=== PATIENT | male | born 1940 | race Caucasian/White ===

== ENCOUNTER 2017-07-30 09:30 | Outpatient (RCR) | payer MEDICARE, SELFPAY ==
--- NOTE | 2017-07-18 09:37 | PCM.PR.HP ---
History of Present Illness Arrival date:: 07/18/17 Arrival time:: 09:38 Date of Evaluation: 07/18/17 Referring Physician: Dr. Janina Sesay [place], [place] Primary Diagnosis: Pulmonary Fibrosis History of Present Illness: Patient is a 77 year old male who presents to pulmonary rehab today with pulmonary fibrosis. The patient is under the care of Dr. Janina Sesay at the [facility] in [place], [place]. The patient is unable to perform pulmonary function testing due to uncontrollable cough. mMRC Breathless Scale: When is the patient short of breath? Y/N Grade: Description of Breathlessness: 0 I only get breathless with strenuous exercise. 1 I get short of breath when hurrying on level ground or walking up a slight hill. 2 On level ground, I walk slower than people of the same age because of breathless, or have to stop for breath when walking at my own pace. 3 I stop for breath after walking 100 yards or after a few minutes on level ground. 4 I am too breathless to leave the house or I am breathless when dressing. Respiratory Problems: Yes: Chest Pain, Fatigue, Wheezing, Able to Speak in Full Sentences, Hoarseness, Dyspnea with Activity, Cough with Secretions - Secretions Amount/Day:: not always Cough:: Yes A.T.C.: Yes Sleep Disorder Evaluation: EPWORTH SLEEPINESS SCALE 0 = NO chance of dozing 2 = MODERATE chance of dozing 1 = SLIGHT chance of dozing 3 = HIGH chance of dozing : SITUATION: CHANCE OF DOZING: Sitting and Reading Watching TV Sitting inactive in a public place (i.e. 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 Psychiatric History: no pertinent psych hx Surgical History: - - umbilical hernia repair 95, removal of pilonidal cyst, vasectomy. Family History: Unknown: Maternal, Paternal, Heart Disease: Sibling - brothers [place], Stroke: Sibling - 2 brothers had CVA Additional Family History: Sister in [place] had fibromyalgia. - Social History Marital Status: Assistive Devices:: none Fall history:: none Interest/Hobbies:: golfing in the past. Now sun sensitive can't golf. Transportation Needs:: own Employment:: Retired Smoking Status: Never smoker - Living Arrangement Patient lives with other person(s) in the home:: AROUND THE CLOCK - Current/ Previous Services [facility] Home Health:: No Other Home Health:: No [facility] Cardiac Rehab:: No Life (Palliative) Care Services:: No Tobacco Use & Smoking Cessation:: No Pulmonary Rehab:: No Social History - Smoking History Smoking Status: Never smoker Hx Tobacco Use: No Hx Smoking Exposure: No - Alcohol Use Alcohol Usage: Yes - past history, no alcohol since 2010. - Substance Abuse Hx Substance Use: No - Occupation Occupation (List type of work in comments):: Retired - Hobbies, Recreation, Social Activities Hobbies: Other - used to enjoy golfing, but unable due to sun sensitivity. Recreational Activities: I am able to engage in most, but not all activities Medications & Vaccination Info Home Medications: Ambulatory Orders Fish Oil/Dha/Epa [Fish Oil 1,200 mg Fish Oil] 1,200 mg PO BID 08/27/13 Zinc 50 mg PO DAILY 08/27/13 Ascorbic Acid [Vitamin C] 1,000 mg PO 07/18/17 B12/Levomefolate Calcium/B-6 [Foltx Tablet] 1 each PO 07/18/17 Famotidine [Pepcid] 20 mg PO 07/18/17 Lactobacillus Combination No.8 [Adult Probiotic] 1 each PO 07/18/17 Oxygen, Home [Home Oxygen] 2 lpm NASAL PRN 07/18/17 Do you use a peak flow meter at home?: No Do you use a spacer device with your inhalers?: No Number of hospital visits in the last year?: 0 Number of emergency room visits in the last year?: 0 Do you see your physician on a regular schedule?: Yes How often?: 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, PCP PRN, Board Layer 3 mo Has adequate access & meets healthcare needs?: Yes - Drug Regimen Review Indication of potential clinical significant med issues (drug reactions, ineffective therapy, side effects, interactions, duplicate therapy, omissions, dose errors, or non-compliance)?: No problems found during review Was a physician or the physican designee contacted within one calendar day to resolve clinically significant medication issues, including reconcilitation?: No Review of Systems Constitutional: Denies: Chills, Fever, Weight Change HEENT: Reports: Hard of Hearing, Nasal Congestion, Post Nasal Drip, Sinus Drainage. Denies: Head Aches, Sinus Congestion Cardiovascular: Denies: Chest Pain, Palpitations Respiratory: Reports: Pleuritic Pain, Shortness of Breath, Shortness of breath upon exertion. Denies: Cough, Shortness of breath at rest, Sputum production Musculoskeletal: Denies: Joint Pain, Joint Tenderness Skin: Reports: Rash. Denies: Wounds Neurological: Reports: Blurred vision, Double vision. Denies: Focal weakness, Numbness, Tingling Psychiatric: Denies: Anxiety, Depression, Homicidal Ideations, Suicidal Ideations Advanced Directives - Advanced Directives Power of Nurse Aide: Yes Living Will: Yes Advance Directives Information Provided: No Advance Directives on File: No - Patient encourage to provide copies to HIM for scan DNR Order?:: No Coping/Social Support/Other - Abuse and Neglect Do you feel safe in your surroundings?:: YES Are there sign/symptoms of abuse?: No Has anyone physically or mentally abused you?: No Has anyone threatened to harm you in any way?: No Been asked to sign a document that you don't understand?: No - Exacerbation History Recent exposure to illness?: No Known carrier?: No Antibiotic Taken:: No - Nutrition Risk Factor Are you on a special diet?: No Diff. chewing/swallowing:: No Have you had a change in your weight?: No Physical Exam - Vital Signs Temperature: 98.6 F Pulse Rate: 72 Respiratory Rate: 16 Pulse Ox at rest: 98 - at rest Blood Pressure: 128/68 Nailbeds:: cyonotic after walking Height: 5 ft 10 in Weight:: 90.718 kg Weight Source: Estimated by Patient Body Mass Index (BMI): 28.7 - Physical Exam General: Alert, Oriented x3, Cooperative Neck: Supple, No JVD, Negative Carotid Bruits, Negative Hepatojugular Reflux Lungs: Clear to auscultation, Normal air movement Cardiovascular: Regular rate, Regular Rhythm, No murmurs Extremities: No edema, Capillary Refill Less than 3 Seconds, Clubbing, Cyanosis, Peripheral Pulses Normal Musculoskeletal: No Tenderness to Palpation of Joints or Extremities Psych/Mental Status: Normal Affect, Appropriate - Pain Is Patient Pain Free?: Yes Pain Location: none Pain Level: 0/10 - Hearing/Speech/Vision/Spiritual Cultural/Gnosticism Needs that may affect Treatment Plan: No Do you have any Spiritual/Emotional needs of which our Central Office Operator Ministry could be of assistance?: No Central Office Operator to contact Place of Methodist?: No Primary Language: Russian Preferred Language: Russian Right Hearing Abillity: Hard of Hearing Visual Difficulty: Near Sighted, Far Sighted - wears corrective eye lenses - Motivation to Participate On a scale of 1 to 10, how prepared are you to commit to attending pulmonary rehabilitation?: 10 What do you see as barriers to successfully being able to complete the program?: just the breathing problem What do you see as the benefits of succesfully completing the program? In other words, what do you hope to get out of participating in the program?: improved quality of life Are there issues you are dealing with that will interfere with completing the program?: none Do you have a spouse or signficant other, family or friends who will help support you to complete the program?: yes Diagnostic Data Review - Diagnostic and Imaging Results CT Scan of Chest: see EMR - Cardiovascular Studies Heart Catherization: see EMR Cardiac Stress Test: See EMR Functioning ADL/IADL - Functional Capacity ADL/IADL GROOMING: Current ability to tend safely to personal hygiene needs (i.e., washing face/hands, hair care, shaving or make up, teeth or denture care, fingernail care).: Able to groom self unaided, w/ or w/o the use of assistive devices. Current ABILITY TO DRESS UPPER BODY safely (with or w/out dressing aids) including undergarments, pullovers, front-opening shirts & blouses, managing zippers, buttons, & snaps:: Gets clothes out, puts on, and removes from upper body w/o assist. Current ABILITY TO DRESS LOWER BODY safely (with or w/out dressing aids) including undergarments, slacks, socks or nylons, shoes:: Able to obtain, put on, & remove clothing and shoes w/out assistance. Bathing: Current ability to wash entire body safely. EXCLUDES grooming (washing face, washing hands and shampooing hair): Bathes self in shower/tub independently, incl getting in & out TOILET TRANSFERRING: Current ability to get to & from the toilet/BSC safely and transfer on & off toilet/commode.: Gets to & from toilet, transfers independently w/ or w/o a device. TOILETING HYGIENE: Current ability to maintain perineal hygiene safely, adjust clothes and/or incontinence pads before & after using toilet, commode, bedpan, urinal. If managing ostomy, includes cleaning: Manages toileting hygiene & clothing management w/out assist TRANSFERRING: Current ability to move safely from bed to chair, or ability to turn and position self in bed if patient is bedfast.: Able to independently transfer. AMBULATION/LOCOMOTION: Current ability to walk safely, once in a standing position, or use wheelchair, once in a seated position, on a variety of surfaces.: Able to IND walk on even/uneven surface&use stairs with or w/o railing FEEDING or EATING: Current ability to feed self meals and snacks safely. NOTE: This refers only to the process of eating, chewing and swallowing, not preparing the food to be eaten.: Able to independently fee ABILITY TO PLAN AND PREPARE MEALS: (e.g., cereal, sandwich) or reheat delivered meals safely.: IND prepare light meals/reheat delvrd meals/Or can but hasn't done so. ABILITY TO USE TELEPHONE: Current ability to answer the phone safely, including dialing numbers, and effectively using the telephone to communicate.: Able to dial numbers and answer calls appropriately and as desired. - Pt Functioning Prior to Problem Self-Care (e.g.,grooming, dressing, & bathing): INDEPENDENT Ambulation: INDEPENDENT Transfer: INDEPENDENT Household tasks (e.g., light meal prep, laundry, shopping): INDEPENDENT
--- NOTE | 2017-07-18 09:48 | PR.HP_ITS ---
History of Present Illness Arrival date:: 07/18/17 Arrival time:: 09:38 Date of Evaluation: 07/18/17 Referring Physician: Dr. Janina Sesay [place], [place] Primary Diagnosis: Pulmonary Fibrosis History of Present Illness: Patient is a 77 year old male who presents to pulmonary rehab today with pulmonary fibrosis. The patient is under the care of Dr. Janina Sesay at the [facility] in [place], [place]. The patient is unable to perform pulmonary function testing due to uncontrollable cough. mMRC Breathless Scale: When is the patient short of breath? Y/N Grade: Description of Breathlessness: 0 I only get breathless with strenuous exercise. 1 I get short of breath when hurrying on level ground or walking up a slight hill. 2 On level ground, I walk slower than people of the same age because of breathless, or have to stop for breath when walking at my own pace. 3 I stop for breath after walking 100 yards or after a few minutes on level ground. 4 I am too breathless to leave the house or I am breathless when dressing. Respiratory Problems: Yes: Chest Pain, Fatigue, Wheezing, Able to Speak in Full Sentences, Hoarseness, Dyspnea with Activity, Cough with Secretions - Secretions Amount/Day:: not always Cough:: Yes A.T.C.: Yes Sleep Disorder Evaluation: EPWORTH SLEEPINESS SCALE 0 = NO chance of dozing 2 = MODERATE chance of dozing 1 = SLIGHT chance of dozing 3 = HIGH chance of dozing : SITUATION: CHANCE OF DOZING: Sitting and Reading Watching TV Sitting inactive in a public place (i.e. 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 Psychiatric History: no pertinent psych hx Surgical History: - - umbilical hernia repair 95, removal of pilonidal cyst, vasectomy. Family History: Unknown: Maternal, Paternal, Heart Disease: Sibling - brothers [place], Stroke: Sibling - 2 brothers had CVA Additional Family History: Sister in [place] had fibromyalgia. - Social History Marital Status: Assistive Devices:: none Fall history:: none Interest/Hobbies:: golfing in the past. Now sun sensitive can't golf. Transportation Needs:: own Employment:: Retired Smoking Status: Never smoker - Living Arrangement Patient lives with other person(s) in the home:: AROUND THE CLOCK - Current/ Previous Services [facility] Home Health:: No Other Home Health:: No [facility] Cardiac Rehab:: No Life (Palliative) Care Services:: No Tobacco Use & Smoking Cessation:: No Pulmonary Rehab:: No Social History - Smoking History Smoking Status: Never smoker Hx Tobacco Use: No Hx Smoking Exposure: No - Alcohol Use Alcohol Usage: Yes - past history, no alcohol since 2010. - Substance Abuse Hx Substance Use: No - Occupation Occupation (List type of work in comments):: Retired - Hobbies, Recreation, Social Activities Hobbies: Other - used to enjoy golfing, but unable due to sun sensitivity. Recreational Activities: I am able to engage in most, but not all activities Medications & Vaccination Info Home Medications: Ambulatory Orders Fish Oil/Dha/Epa [Fish Oil 1,200 mg Fish Oil] 1,200 mg PO BID 08/27/13 Zinc 50 mg PO DAILY 08/27/13 Ascorbic Acid [Vitamin C] 1,000 mg PO 07/18/17 B12/Levomefolate Calcium/B-6 [Foltx Tablet] 1 each PO 07/18/17 Famotidine [Pepcid] 20 mg PO 07/18/17 Lactobacillus Combination No.8 [Adult Probiotic] 1 each PO 07/18/17 Oxygen, Home [Home Oxygen] 2 lpm NASAL PRN 07/18/17 Do you use a peak flow meter at home?: No Do you use a spacer device with your inhalers?: No Number of hospital visits in the last year?: 0 Number of emergency room visits in the last year?: 0 Do you see your physician on a regular schedule?: Yes How often?: 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 3 mo, PCP PRN, Mutual Funds Agent 3 mo Has adequate access & meets healthcare needs?: Yes - Drug Regimen Review Indication of potential clinical significant med issues (drug reactions, ineffective therapy, side effects, interactions, duplicate therapy, omissions, dose errors, or non-compliance)?: No problems found during review Was a physician or the physican designee contacted within one calendar day to resolve clinically significant medication issues, including reconcilitation?: No Review of Systems Constitutional: Denies: Chills, Fever, Weight Change HEENT: Reports: Hard of Hearing, Nasal Congestion, Post Nasal Drip, Sinus Drainage. Denies: Head Aches, Sinus Congestion Cardiovascular: Denies: Chest Pain, Palpitations Respiratory: Reports: Pleuritic Pain, Shortness of Breath, Shortness of breath upon exertion. Denies: Cough, Shortness of breath at rest, Sputum production Musculoskeletal: Denies: Joint Pain, Joint Tenderness Skin: Reports: Rash. Denies: Wounds Neurological: Reports: Blurred vision, Double vision. Denies: Focal weakness, Numbness, Tingling Psychiatric: Denies: Anxiety, Depression, Homicidal Ideations, Suicidal Ideations Advanced Directives - Advanced Directives Power of Tree Care Foreman: Yes Living Will: Yes Advance Directives Information Provided: No Advance Directives on File: No - Patient encourage to provide copies to HIM for scan DNR Order?:: No Coping/Social Support/Other - Abuse and Neglect Do you feel safe in your surroundings?:: YES Are there sign/symptoms of abuse?: No Has anyone physically or mentally abused you?: No Has anyone threatened to harm you in any way?: No Been asked to sign a document that you don't understand?: No - Exacerbation History Recent exposure to illness?: No Known carrier?: No Antibiotic Taken:: No - Nutrition Risk Factor Are you on a special diet?: No Diff. chewing/swallowing:: No Have you had a change in your weight?: No Physical Exam - Vital Signs Temperature: 98.6 F Pulse Rate: 72 Respiratory Rate: 16 Pulse Ox at rest: 98 - at rest Blood Pressure: 128/68 Nailbeds:: cyonotic after walking Height: 5 ft 10 in Weight:: 90.718 kg Weight Source: Estimated by Patient Body Mass Index (BMI): 28.7 - Physical Exam General: Alert, Oriented x3, Cooperative Neck: Supple, No JVD, Negative Carotid Bruits, Negative Hepatojugular Reflux Lungs: Clear to auscultation, Normal air movement Cardiovascular: Regular rate, Regular Rhythm, No murmurs Extremities: No edema, Capillary Refill Less than 3 Seconds, Clubbing, Cyanosis , Peripheral Pulses Normal Musculoskeletal: No Tenderness to Palpation of Joints or Extremities Psych/Mental Status: Normal Affect, Appropriate - Pain Is Patient Pain Free?: Yes Pain Location: none Pain Level: 0/10 - Hearing/Speech/Vision/Spiritual Cultural/Sikhism Needs that may affect Treatment Plan: No Do you have any Spiritual/Emotional needs of which our Automotive Accessory Installer Ministry could be of assistance?: No Automotive Accessory Installer to contact Place of Restorationist?: No Primary Language: Serbian Preferred Language: Serbian Right Hearing Abillity: Hard of Hearing Visual Difficulty: Near Sighted, Far Sighted - wears corrective eye lenses - Motivation to Participate On a scale of 1 to 10, how prepared are you to commit to attending pulmonary rehabilitation?: 10 What do you see as barriers to successfully being able to complete the program? : just the breathing problem What do you see as the benefits of succesfully completing the program? In other words, what do you hope to get out of participating in the program?: improved quality of life Are there issues you are dealing with that will interfere with completing the program?: none Do you have a spouse or signficant other, family or friends who will help support you to complete the program?: yes Diagnostic Data Review - Diagnostic and Imaging Results CT Scan of Chest: see EMR - Cardiovascular Studies Heart Catherization: see EMR Cardiac Stress Test: See EMR Functioning ADL/IADL - Functional Capacity ADL/IADL GROOMING: Current ability to tend safely to personal hygiene needs (i.e., washing face/hands, hair care, shaving or make up, teeth or denture care, fingernail care).: Able to groom self unaided, w/ or w/o the use of assistive devices. Current ABILITY TO DRESS UPPER BODY safely (with or w/out dressing aids) including undergarments, pullovers, front-opening shirts & blouses, managing zippers, buttons, & snaps:: Gets clothes out, puts on, and removes from upper body w/o assist. Current ABILITY TO DRESS LOWER BODY safely (with or w/out dressing aids) including undergarments, slacks, socks or nylons, shoes:: Able to obtain, put on , & remove clothing and shoes w/out assistance. Bathing: Current ability to wash entire body safely. EXCLUDES grooming (washing face, washing hands and shampooing hair): Bathes self in shower/tub independently, incl getting in & out TOILET TRANSFERRING: Current ability to get to & from the toilet/BSC safely and transfer on & off toilet/commode.: Gets to & from toilet, transfers independently w/ or w/o a device. TOILETING HYGIENE: Current ability to maintain perineal hygiene safely, adjust clothes and/or incontinence pads before & after using toilet, commode, bedpan, urinal. If managing ostomy, includes cleaning: Manages toileting hygiene & clothing management w/out assist TRANSFERRING: Current ability to move safely from bed to chair, or ability to turn and position self in bed if patient is bedfast.: Able to independently transfer. AMBULATION/LOCOMOTION: Current ability to walk safely, once in a standing position, or use wheelchair, once in a seated position, on a variety of surfaces.: Able to IND walk on even/uneven surface&use stairs with or w/o railing FEEDING or EATING: Current ability to feed self meals and snacks safely. NOTE: This refers only to the process of eating, chewing and swallowing, not preparing the food to be eaten.: Able to independently fee ABILITY TO PLAN AND PREPARE MEALS: (e.g., cereal, sandwich) or reheat delivered meals safely.: IND prepare light meals/reheat delvrd meals/Or can but hasn't done so. ABILITY TO USE TELEPHONE: Current ability to answer the phone safely, including dialing numbers, and effectively using the telephone to communicate.: Able to dial numbers and answer calls appropriately and as desired. - Pt Functioning Prior to Problem Self-Care (e.g.,grooming, dressing, & bathing): INDEPENDENT Ambulation: INDEPENDENT Transfer: INDEPENDENT Household tasks (e.g., light meal prep, laundry, shopping): INDEPENDENT
--- NOTE | 2017-07-18 09:54 | PR.ITP_ITS ---
General Information - General Information Admitting Diagnosis: Pulmonary Fibrosis M35.8 - Education/Goals Barriers to Learning: Hearing Impairment, Vision Impairment Individual Counseling: Initial Assessment: Dyspnea control techniques at rest, activity, and ADLs, O2, Rx, system, safety, Panic & depression management Patient Goals: Breathe better: Initial Assessment, Increase endurance/stamina: Initial Assessment Exercise - Initial Assessment - Visit Date of Eval: 07/18/17 - Problem/Goals Problems: Deconditioning, No regular exercise, Knowledge deficit exercise guidelines, Knowledge deficit exercise safety - Exercise Prescription Mode:: Treadmill, Airdyne, NuStep, Arm Ergometer Frequency (x/week): 3 Duration:: 30 MET LEVEL:: 2 HR (bpm):: 108 - 100-108 THRR Exercise Progression: per protocol as tolerated. - Plan Plan and Plan to Review:: Benefits of exercise, Core components of exercise, How to measure dyspnea level, How to monitor dyspnea level, Exercise intensity, Exercise safety guideline, Home exercise guidelines, Sage: 3-4/11-13 Disease Management - Initial - Problems/Goals-Hypoxemia Hypoxemia Problems:: Hypoxemia Hypoxemia Goals:: Using O2 as Rx's safely - Problems/Goals-Bronchial Hygiene Bronchial Hygiene Problems:: Respiratory infection Prevention/Management Bronchial Hygiene Goals:: Pt describes signs and symptoms of infection. - Initial Assessment Medications: No MDI, No DPI, No NEB, No Spacer Patient Reports:: Non-productive cough - Plans Hypoxemia Plan:: Monitor SpO2 rest & with exercise, Train appropriate O2 use at rest, Train appropriate O2 use with exercise, Train O2 safety & systems Reviewed prescribed medications:: Purpose, Schedule, Side effects, Importance of compliance Bronchial Hygiene Plan: Controlled cough, Vibratory PEP device, Hydration, Hand hygiene, Signs/symptoms to report:, Influenza/Pneumovax vaccines Psychosocial - Initial Assess - Problems/Goals Problems: Impaired Q.O.L. Psychosocial Goals: Improved Q.O.L. - Psychosocial Test Depression:: Impaired QOL Referred to MD for counseling:: No - Plan Reviewed screening results: No Instructions given regarding:: Benefits of exercise, Relaxation techniques, Training in coping strategies Tobacco - Initial Assessment - Program Goals Tobacco Program Goals: Complete smoking cessation. Attend education classes. Improve Knowledge Test score - Stage of Change Stages of Change:: Action - Learning Barriers Learning Barriers: Hearing, Vision - Tobacco Use Do you use smokeless tobacco?: No - Intervention Smoking Cessation Referral:: No Individual Education/Counseling:: No Education Schedule Given:: Yes - Education Gave Education Materials For:: Pulmonary Disease, Risk Factors, Breathing Techniques, Medical Compliance, Pulmonary A&P, Exacerbation Signs & Symptoms, Stress & Relaxation Nutrition/Wt Mgmt - Initial - Problems/Goals Problems: Overweight Goals: Wt Loss 1-2 lbs per week - Weight Management Knowledge Deficit Management of:: Overweight, Lack of vitamin D/Ca++ supplement Admit Height:: 5 ft 10 in Admit Weight:: 90.718 kg Admit BMI:: 28.7 - Diabetes Diabetes:: No Insulin: No Do you monitor your blood sugar at home?: No - Intervention Referral to dietitian:: No Referral to Diabetic Clinic:: No Will attend diet classes:: Yes - Plan Nutrition Plan: Yes Nutrition education class:, Yes Medication education class [ Prednisone]:, Yes Weight control education class: Patient Health Questionnaire Initial Assessment 1. Little interest or pleasure in doing things: Not at all 2. Feeling down, depressed, or hopeless: Several days 3. Trouble falling or staying asleep, or sleeping too much: Nearly every day 4. Feeling tired or having little energy: Several days 5. Poor appetite or overeating: Not at all 6. Feeling bad about yourself -- or that you are a failure or have let yourself or your family down: Not at all 7. Trouble concentrating on things, such as reading the newspaper or watching television: Not at all 8. Moving or speaking so slowly that other people could have noticed. Or the opposite - being so fidgety or restless that you have been moving around a lot more than usual: Not at all 9. Thoughts that you would be better off , or of hurting yourself in some way: Not at all How difficult have these problems made it for you to do your work, take care of things at home, or get along with other people?: Somewhat difficult Total Score: 5 COPD Knowledge Test Initial COPD is a lung disease that:: Makes it hard to breathe & gets worse over time In the [place] the term COPD describes 2 main lung conditions:: Cystic fibrosis & chronic bronchitis The most common lung irritant that causes COPD is:: Cigarette smoke Common signs and symptoms of COPD include:: An ongoing cough/cough that produces a large amount of mucus, & SOB If you have COPD, what steps can you take?: All of the above Swelling of the ankles is common in COPD:: False Fatigue [tiredness] is common in COPD:: True Wheezing is common in COPD:: True Crushing chest pain is common in COPD:: False Rapid weight loss is common in COPD:: True Breathlessness is a normal response to exercise: True Exercise should be avoided if it makes you short of breath: False All bronchodilators act within 10 minutes: False A spacer device increases the medication to the lungs: False Annual flu vaccine is recommended for pts w/lung disease: True COPD Knowledge Test Total Score:: 12 COPD Assessment Test [CAT] - Questions Never cough = 0, Cough all the time = 5: 4 No phlegm = 0, Chest full of phlegm = 5: 4 No chest tightness = 0, Chest very tight = 5: 2 No breathless w/exertion = 0, Very breathless w/exertion = 5: 5 No limitations w/activity = 0, Very limited w/activity = 5: 3 Confident leaving home = 0, Not at all confident = 5: 5 Sleep soundly = 0, Don't sleep soundly = 5: 5 Lots of energy = 0, No energy at all = 5: 3 Total CAT score:: 31 Self-Efficacy Initial Assessment We would like to know how confident you are in doing certain activities. Please select your confidence level for:: Select your confidence level for the following using the scale 1-10 where 1 is not at all confident and 10 is totally confident. Your score is the average of all 6 responses. Fatigue: How confident are you that you can keep the fatigue caused by your disease from interfering with the things you want to do? Select Number: 6 Physical Discomfort or Pain: How confident are you that you can keep the physical discomfort or pain of your disease from interfering with the things you want to do? Select Number: 5 Emotional Distress: How confident are you that you can keep the emotional distress caused by your disease from interfering with the things you want to do? Select Number: 8 Other Symptoms or Health Problems: How confident are you that you can keep other symptoms or health problems from interfering with the things you want to do? Select Number: 8 Different Tasks and Activities: How confident are you that you can do the different tasks and activities needed to manage your health condition so as to reduce your need to see a doctor? Select Number: 5 Medication: How confident are you that you can do things other than just taking medication to reduce how much your illness affects your everyday life? Select Number: 8 Total Score:: 6 Nutrition Survey - Nutrition Survey Instructions Scoring Instructions: Scoring is as follows: Yes = 1 points. No = 0 point. Patient score that is >/=12 is considered to be at potential nutritional risk and could benefit from a referral to a registered dietitian. - Nutrition Survey Initial Have you lost >10 lbs over the past 2 months without trying?: No Are you following a special diet at home for diabetes, low fat, or low salt?: No Are you interested in meeting with a dietitian for help understanding your diet? : No Do you eat less than 3 meals a day?: No Do you eat fatty meats (wray, sausage, ribs, etc), fried foods, desserts, large amounts of salad dressings, margarine, butter, or cheese most days?: No Do you have food allergies? [Enter types in comment field]: No Do you eat in restaurants more than 3 times a week?: Yes Do you season food with salt, seasoning salt, or garlic salt?: No Do you used canned, boxed, frozen meals, or soups, seasoning packets?: Yes Total Score:: 2
[2017-07-18 10:18] VITALS: BP 128/68; PULSE 72; RESP 16; TEMP 37; O2SAT 98; BMI 28.7
[2017-07-18 11:16] VITALS: BMI 28.7
--- NOTE | 2017-07-18 11:19 | PCM.PR.DAT ---
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 Effective Feb 28, 2013 our hours will be changing to 8:00 to 4:30 on Friday, Friday and Friday. First Date of the Month: 07/21/17 Last Date of the Month: 07/30/17
== END 2017-07-30 23:59 ==
LOC: PR 09:30
PROVIDERS: Family Provider Family Medicine; PCP Family Medicine
DX: M35.8 Other specified systemic involvement of connective tissue (principal)
CPT/HCPCS: 97150; G0239

== ENCOUNTER → 2017-08-11 10:34 | Outpatient (CLI) | payer MEDICARE, SELFPAY ==
[2017-08-11 11:01] LABS: Absolute Lymphocyte Count 1.97 X10^3/ul (0.83-4.51); Absolute Neutrophil Count 3.6 X10^3/uL (2.0-7.7); Basophil# 0.01 X10^3/uL; Basophil% 0.2 % (0-1); Eosinophil# 0.34 X10^3/uL; Eosinophils% 5.1 % (0-5); Hematocrit 42.5 % (40-54); Hemoglobin 14.4 g/dl (13.0-16.5); Lymphocyte # 1.97 X10^3/ul (4.0); Lymphocyte % 29.6 % (19-41); Mean Corp Hgb Conc 33.9 g/gl (32-36); Mean Corpuscular Hgb 33.7 pg (27.0-32.0); Mean Corpuscular Volume 99.5 fL (80-94); Monocyte# 0.69 X10^3/uL; Monocyte% 10.4 % (0-10); Neutrophil # 3.64 X10^3/uL (2.7-7.7); Neutrophil % 54.5 % (47-70); Platelet Count 162 K/mm3 (150-450); RBC Distribution Width CV 13.4 % (11.6-14.6); RBC Distribution Width SD 48.6 fl (35.1-43.9); Red Blood Count 4.27 M/mm3 (4.6-6.2); White Blood Count 6.7 K/mm3 (4.4-11.0)
[2017-08-11 11:03] LABS: POSITIVE COUNT NO; POSITIVE DIFFERENTIAL NO; POSITIVE MORPHOLOGY NO
[2017-08-11 11:36] LABS: ALB/GLOB Ratio 0.9 RATIO (0.9-2.4); AST(SGOT) 31 U/L (15-37); Alanine Aminotransfer ALT/SGPT 32 U/L (16-61); Albumin, Serum 3.8 g/dL (3.2-5.0); Alkaline Phosphatase 64 U/L (45-117); Anion Gap 6 (5-15); BUN 12 mg/dL (7-18); BUN/Creat Ratio 9.2 RATIO (10-20); CPK Total, Creatine Kinase 121 U/L (39-308); Calcium,Total 8.9 mg/dL (8.5-10.1); Chloride 98 mmol/L (98-107); Creatinine, Serum 1.31 mg/dL (0.70-1.30); EST Glomerular Filtration Rate 56 mL/min (>60); Est Glom Filt Rate - Afr Amer 68 mL/min (>60); Globulin 4.2 g/dL (2.2-4.2); Glucose 94 mg/dL (74-106); Potassium 3.7 mmol/L (3.5-5.1); Sodium Level 133 mmol/L (136-145)
[2017-08-13 07:24] LABS: Aldolase 4.2 U/L (3.3-10.3)
== END ==
PROVIDERS: Family Provider Family Medicine; PCP Family Medicine; Visit Provider Internal Medicine Rheumatology
DX: M06.4 Inflammatory polyarthropathy (principal); M33.90 Dermatopolymyositis, unspecified, organ involvement unspecified; K21.0 Gastro-esophageal reflux disease with esophagitis; K76.0 Fatty (change of) liver, not elsewhere classified; M51.87 Other intervertebral disc disorders, lumbosacral region; N40.0 Benign prostatic hyperplasia without lower urinary tract symptoms; M35.8 Other specified systemic involvement of connective tissue
CPT/HCPCS: 36415; 80053; 82085; 82550; 85025; 97150; G0239

== ENCOUNTER 2017-08-27 09:30 | Outpatient (RCR) | payer MEDICARE, SELFPAY ==
[2017-07-18 10:18] VITALS: BP 128/68
[2017-07-18 11:16] VITALS: BMI 28.7
[2017-07-31 01:13] VITALS: PULSE 72; RESP 16; TEMP 37; O2SAT 98
--- NOTE | 2017-08-25 13:30 | PR.DATECOV_ITS ---
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 Effective Feb 28, 2013 our hours will be changing to 8:00 to 4:30 on Friday, Friday and Friday. First Date of the Month: 08/28/17 Last Date of the Month: 09/26/17
--- NOTE | 2017-08-25 13:30 | PCM.PR.TP ---
Exercise - 30-Day Assessment - Exercise Prescription Mode:: Treadmill, Airdyne, NuStep, Arm Ergometer Frequency (x/week): 3 Duration:: 30 Aerobic Exercise [30-60 min 3-7x/week]:: Progressing Target heart rate: 120 - THRR 107-114 Sage.5 MET Level:: 3 - 3.5 currently - Home Exercise Home Exercise:: No Disease Management - 30-Day - Hypoxemia Reassessment: Demonstrates knowledge of O2 Rx at rest, Demonstrates knowledge of O2 Rx with exercise, Using O2 as prescribed, Uses port O2 as prescribed - Medications Medication list reviewed:: Yes Taking medications 100% of the time:: Met - very very well versed in use of his medications. Medication reassessment: Yes Pt demonstrates correct technique timing for MDI, Yes Pt demonstrates correct technique timing for DPI, Yes Pt demonstrates correct technique timing for NEB, Yes Pt demonstrates correct technique timing for spacer Psychosocial - 30-Day - Assessment Reassessment: Practicing interventions Tobacco - 30-Day Assessment - Program Goals Tobacco Program Goals: Complete smoking cessation. Attend education classes. Improve Knowledge Test score - Stage of Change Stages of Change:: Action - Learning Barriers Learning Barriers: Participates in education - Family Support Do you have family support?: Yes - Tobacco Use Tobacco Use: Non-smoker Do you use smokeless tobacco?: No - Intervention Smoking Cessation Referral:: No Individual Education/Counseling:: No Education Schedule Given:: Yes - Education Gave Education Materials For:: Pulmonary Disease, Risk Factors, Breathing Techniques, Medical Compliance, Pulmonary A&P, Exacerbation Signs & Symptoms, Stress & Relaxation Nutrition/Wt Mgmt - 30-Day - Weight Management Weight Assessment:: Wt loss 1-2 lbs per week Weight:: 89.358 kg Weight Goals Progress:: Progressing Patient Health Questionnaire 30-Day Re-eval Assessment 1. Little interest or pleasure in doing things: Not at all 2. Feeling down, depressed, or hopeless: Not at all 3. Trouble falling or staying asleep, or sleeping too much: More than half the days 4. Feeling tired or having little energy: Several days 5. Poor appetite or overeating: Not at all 6. Feeling bad about yourself -- or that you are a failure or have let yourself or your family down: Not at all 7. Trouble concentrating on things, such as reading the newspaper or watching television: Not at all 8. Moving or speaking so slowly that other people could have noticed. Or the opposite - being so fidgety or restless that you have been moving around a lot more than usual: Not at all How difficult have these problems made it for you to do your work, take care of things at home, or get along with other people?: Not difficult at all Total Score: 3 COPD Assessment Test [CAT] - Questions Never cough = 0, Cough all the time = 5: 3 No phlegm = 0, Chest full of phlegm = 5: 3 No chest tightness = 0, Chest very tight = 5: 1 No breathless w/exertion = 0, Very breathless w/exertion = 5: 4 No limitations w/activity = 0, Very limited w/activity = 5: 2 Confident leaving home = 0, Not at all confident = 5: 4 Sleep soundly = 0, Don't sleep soundly = 5: 4 Lots of energy = 0, No energy at all = 5: 3 Total CAT score:: 24 Self-Efficacy 30-Day Re-eval Assessment We would like to know how confident you are in doing certain activities. Please select your confidence level for:: Select your confidence level for the following using the scale 1-10 where 1 is not at all confident and 10 is totally confident. Your score is the average of all 6 responses. Fatigue: How confident are you that you can keep the fatigue caused by your disease from interfering with the things you want to do? Select Number: 7 Physical Discomfort or Pain: How confident are you that you can keep the physical discomfort or pain of your disease from interfering with the things you want to do? Select Number: 6 Emotional Distress: How confident are you that you can keep the emotional distress caused by your disease from interfering with the things you want to do? Select Number: 8 Other Symptoms or Health Problems: How confident are you that you can keep other symptoms or health problems from interfering with the things you want to do? Select Number: 8 Different Tasks and Activities: How confident are you that you can do the different tasks and activities needed to manage your health condition so as to reduce your need to see a doctor? Select Number: 6 Medication: How confident are you that you can do things other than just taking medication to reduce how much your illness affects your everyday life? Select Number: 9 Total Score:: 7
== END 2017-08-27 23:59 ==
LOC: PR 09:30
PROVIDERS: Family Provider Family Medicine; PCP Family Medicine
DX: M35.8 Other specified systemic involvement of connective tissue (principal)
CPT/HCPCS: 97150; G0239

== ENCOUNTER 2017-09-26 09:30 | Outpatient (RCR) | payer MEDICARE, SELFPAY ==
[2017-08-28 00:55] VITALS: BP 128/68; PULSE 72; RESP 16; TEMP 37; O2SAT 98; BMI 28.7
--- NOTE | 2017-09-22 14:13 | PCM.PR.DAT ---
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 Effective Feb 28, 2013 our hours will be changing to 8:00 to 4:30 on Friday, Friday and Friday. First Date of the Month: 09/28/17 Last Date of the Month: 10/27/17
--- NOTE | 2017-09-22 14:15 | PCM.PR.TP ---
Exercise - 90-Day Assessment - Exercise Prescription Mode:: Treadmill, Rower, Airdyne, NuStep, Arm Ergometer Frequency (x/week): 3 Duration:: 30 Aerobic Exercise [30-60 min 3-7x/week]:: Progressing Target heart rate: 121 - 114-121 w/max HR 117 Sage MET Level:: 4 - Home Exercise Home Exercise?: No Disease Management - 90-Day - Hypoxemia Reassessment: Demonstrates knowledge of O2 Rx with exercise - Medications Medication list reviewed:: Yes Taking medications 100% of the time:: Met Medication reassessment: Yes Pt demonstrates correct technique timing for MDI, Yes Pt demonstrates correct technique timing for spacer - Bronchial Hygiene Bronchial Hygiene Plan: Yes Pt demo correct for device - demonstrates use acapella, Yes Pt demo correct for improved hydration, Yes Pt demo correct for hand hygiene, Yes Pt demo correct for evalute sputum, Yes Pt demo correct for verbalize when to call MD Psychosocial - 90-Day - Assessment Depression reassess: Management of stress: Met, Management of depression: Met, Practicing interventions: Met Tobacco - 90-Day Assessment - Program Goals Tobacco Program Goals: Complete smoking cessation. Attend education classes. Improve Knowledge Test score - Stage of Change Stages of Change:: Action - Learning Barriers Learning Barriers: Participates in education - Family Support Do you have family support?: Yes - Tobacco Use Tobacco Use: Non-smoker Do you use smokeless tobacco?: No - Intervention Smoking Cessation Referral:: No Individual Education/Counseling:: No Education Schedule Given:: Yes - Education Gave Education Materials For:: Pulmonary Disease, Risk Factors, Breathing Techniques, Medical Compliance, Pulmonary A&P, Exacerbation Signs & Symptoms, Stress & Relaxation Nutrition/Wt Mgmt - 90-Day - Weight Management Weight:: 196 lb - loss 2.5 Weight Goals Progress:: Progressing Patient Health Questionnaire 90-Day Re-eval Assessment 1. Little interest or pleasure in doing things: Not at all 2. Feeling down, depressed, or hopeless: Not at all 3. Trouble falling or staying asleep, or sleeping too much: Not at all 4. Feeling tired or having little energy: Not at all 5. Poor appetite or overeating: Not at all 6. Feeling bad about yourself -- or that you are a failure or have let yourself or your family down: Not at all 7. Trouble concentrating on things, such as reading the newspaper or watching television: Not at all 8. Moving or speaking so slowly that other people could have noticed. Or the opposite - being so fidgety or restless that you have been moving around a lot more than usual: Not at all 9. Thoughts that you would be better off , or of hurting yourself in some way: Not at all How difficult have these problems made it for you to do your work, take care of things at home, or get along with other people?: Not difficult at all Total Score: 0 COPD Assessment Test [CAT] - Questions Never cough = 0, Cough all the time = 5: 2 No phlegm = 0, Chest full of phlegm = 5: 0 No chest tightness = 0, Chest very tight = 5: 0 No breathless w/exertion = 0, Very breathless w/exertion = 5: 2 No limitations w/activity = 0, Very limited w/activity = 5: 1 Confident leaving home = 0, Not at all confident = 5: 1 Sleep soundly = 0, Don't sleep soundly = 5: 3 Lots of energy = 0, No energy at all = 5: 2 Total CAT score:: 11 Self-Efficacy 90-Day Re-eval Assessment We would like to know how confident you are in doing certain activities. Please select your confidence level for:: Select your confidence level for the following using the scale 1-10 where 1 is not at all confident and 10 is totally confident. Your score is the average of all 6 responses. Fatigue: How confident are you that you can keep the fatigue caused by your disease from interfering with the things you want to do? Select Number: 10 Physical Discomfort or Pain: How confident are you that you can keep the physical discomfort or pain of your disease from interfering with the things you want to do? Select Number: 10 Emotional Distress: How confident are you that you can keep the emotional distress caused by your disease from interfering with the things you want to do? Select Number: 10 Other Symptoms or Health Problems: How confident are you that you can keep other symptoms or health problems from interfering with the things you want to do? Select Number: 10 Different Tasks and Activities: How confident are you that you can do the different tasks and activities needed to manage your health condition so as to reduce your need to see a doctor? Select Number: 10 Medication: How confident are you that you can do things other than just taking medication to reduce how much your illness affects your everyday life? Select Number: 10 Total Score:: 10
== END 2017-09-27 23:59 ==
LOC: PR 09:30
PROVIDERS: Family Provider Family Medicine; PCP Family Medicine
DX: M35.8 Other specified systemic involvement of connective tissue (principal)
CPT/HCPCS: 97150; G0239

== ENCOUNTER → 2017-10-06 10:28 | Outpatient (CLI) | payer MEDICARE, SELFPAY ==
[2017-10-06 12:03] LABS: Absolute Lymphocyte Count 1.93 X10^3/ul (0.83-4.51); Absolute Neutrophil Count 4.7 X10^3/uL (2.0-7.7); Basophil# 0.03 X10^3/uL; Basophil% 0.4 % (0-1); Eosinophil# 0.14 X10^3/uL; Eosinophils% 1.9 % (0-5); Hematocrit 42.7 % (40-54); Hemoglobin 14.3 g/dl (13.0-16.5); Lymphocyte # 1.93 X10^3/ul (4.0); Mean Corp Hgb Conc 33.5 g/gl (32-36); Mean Corpuscular Hgb 33.7 pg (27.0-32.0); Mean Corpuscular Volume 100.7 fL (80-94); Mean Platelet Vol. 11.2 fl (6.2-12.0); Monocyte% 8.1 % (0-10); Neutrophil # 4.72 X10^3/uL (2.7-7.7); Neutrophil % 63.5 % (47-70); Platelet Count 182 K/mm3 (150-450); RBC Distribution Width CV 12.9 % (11.6-14.6); RBC Distribution Width SD 46.9 fl (35.1-43.9); Red Blood Count 4.24 M/mm3 (4.6-6.2); White Blood Count 7.4 K/mm3 (4.4-11.0)
[2017-10-06 12:08] LABS: POSITIVE COUNT NO; POSITIVE DIFFERENTIAL NO; POSITIVE MORPHOLOGY NO
[2017-10-06 12:29] LABS: ALB/GLOB Ratio 0.9 RATIO (0.9-2.4); AST(SGOT) 36 U/L (15-37); Alanine Aminotransfer ALT/SGPT 34 U/L (16-61); Albumin, Serum 3.8 g/dL (3.2-5.0); Alkaline Phosphatase 73 U/L (45-117); Anion Gap 8 (5-15); BUN 14 mg/dL (7-18); BUN/Creat Ratio 10.9 RATIO (10-20); Calcium,Total 9.1 mg/dL (8.5-10.1); Chloride 97 mmol/L (98-107); Creatinine, Serum 1.28 mg/dL (0.70-1.30); EST Glomerular Filtration Rate 58 mL/min (>60); Est Glom Filt Rate - Afr Amer 70 mL/min (>60); Globulin 4.1 g/dL (2.2-4.2); Glucose 86 mg/dL (74-106); Potassium 4.1 mmol/L (3.5-5.1); Protein, Total 7.9 g/dL (6.4-8.2); Sodium Level 133 mmol/L (136-145)
== END ==
PROVIDERS: Family Provider Family Medicine; PCP Family Medicine; Visit Provider Internal Medicine Rheumatology
DX: M06.4 Inflammatory polyarthropathy (principal); M33.90 Dermatopolymyositis, unspecified, organ involvement unspecified; K21.0 Gastro-esophageal reflux disease with esophagitis; K76.0 Fatty (change of) liver, not elsewhere classified; M51.87 Other intervertebral disc disorders, lumbosacral region; N40.0 Benign prostatic hyperplasia without lower urinary tract symptoms; M35.8 Other specified systemic involvement of connective tissue
CPT/HCPCS: 36415; 80053; 85025; 97150; G0239

== ENCOUNTER 2017-10-13 09:30 | Outpatient (RCR) | payer MEDICARE, SELFPAY ==
[2017-09-28 00:46] VITALS: BP 128/68; PULSE 72; RESP 16; TEMP 37; O2SAT 98; BMI 28.7
--- NOTE | 2017-10-21 10:47 | PR.ITP_ITS ---
Exercise - Final Assessment - Exercise Prescription Mode:: Treadmill, Rower, NuStep, Arm Ergometer Frequency (x/week): 3 - Discharged 10/13/17 Duration:: 30 Aerobic Exercise [30-60 min 3-7x/week]:: Met Further followup [see D/C Summary]:: No Target heart rate: 114-121 Sage MET Level:: 5 - Home Exercise Home Exercise:: No Disease Management - Final - Hypoxemia Final Assessment: Demonstrates knowledge of O2 Rx with exercise - Medications Medication list reviewed:: Yes Taking medications 100% of the time:: Met - Patient very knowledgable of his medications and use. Psychosocial - Final Assess - Assessment Depression reassess: Management of stress: Met, Management of depression: Met, Practicing interventions: Met Tobacco - Final Assessment - Program Goals Tobacco Program Goals: Complete smoking cessation. Attend education classes. Improve Knowledge Test score - Stage of Change Stages of Change:: Action - Learning Barriers Learning Barriers: Participates in education - Family Support Do you have family support?: Yes - Tobacco Use Tobacco Use: Non-smoker Do you use smokeless tobacco?: No - Intervention Smoking Cessation Referral:: No Individual Education/Counseling:: No Education Schedule Given:: Yes - Education Education Goal Reached?: Yes Nutrition/Wt Mgmt - Final - Weight Management Weight:: 196 lb Weight Goals Progress:: Goal met Patient Health Questionnaire Discharge Assessment 1. Little interest or pleasure in doing things: Not at all 2. Feeling down, depressed, or hopeless: Several days 3. Trouble falling or staying asleep, or sleeping too much: Several days 4. Feeling tired or having little energy: Several days 5. Poor appetite or overeating: Several days 6. Feeling bad about yourself -- or that you are a failure or have let yourself or your family down: Not at all 7. Trouble concentrating on things, such as reading the newspaper or watching television: Several days 8. Moving or speaking so slowly that other people could have noticed. Or the opposite - being so fidgety or restless that you have been moving around a lot more than usual: More than half the days 9. Thoughts that you would be better off , or of hurting yourself in some way: Not at all How difficult have these problems made it for you to do your work, take care of things at home, or get along with other people?: Somewhat difficult Total Score: 7 COPD Knowledge Test Discharge COPD is a lung disease that:: Makes it hard to breathe & gets worse over time In the [place] the term COPD describes 2 main lung conditions:: Emphysema & chronic bronchitis The most common lung irritant that causes COPD is:: Cigarette smoke Common signs and symptoms of COPD include:: An ongoing cough/cough that produces a large amount of mucus, & SOB If you have COPD, what steps can you take?: All of the above Swelling of the ankles is common in COPD:: False Fatigue [tiredness] is common in COPD:: True Wheezing is common in COPD:: True Crushing chest pain is common in COPD:: False Rapid weight loss is common in COPD:: False Breathlessness is a normal response to exercise: True Exercise should be avoided if it makes you short of breath: False All bronchodilators act within 10 minutes: False A spacer device increases the medication to the lungs: True Annual flu vaccine is recommended for pts w/lung disease: True COPD Knowledge Test Total Score:: 15 COPD Assessment Test [CAT] - Questions Never cough = 0, Cough all the time = 5: 5 No phlegm = 0, Chest full of phlegm = 5: 4 No chest tightness = 0, Chest very tight = 5: 3 No breathless w/exertion = 0, Very breathless w/exertion = 5: 5 No limitations w/activity = 0, Very limited w/activity = 5: 3 Confident leaving home = 0, Not at all confident = 5: 1 Sleep soundly = 0, Don't sleep soundly = 5: 5 Lots of energy = 0, No energy at all = 5: 2 Total CAT score:: 28 Self-Efficacy Discharge Assessment We would like to know how confident you are in doing certain activities. Please select your confidence level for:: Select your confidence level for the following using the scale 1-10 where 1 is not at all confident and 10 is totally confident. Your score is the average of all 6 responses. Fatigue: How confident are you that you can keep the fatigue caused by your disease from interfering with the things you want to do? Select Number: 6 Physical Discomfort or Pain: How confident are you that you can keep the physical discomfort or pain of your disease from interfering with the things you want to do? Select Number: 5 Emotional Distress: How confident are you that you can keep the emotional distress caused by your disease from interfering with the things you want to do? Select Number: 5 Other Symptoms or Health Problems: How confident are you that you can keep other symptoms or health problems from interfering with the things you want to do? Select Number: 5 Different Tasks and Activities: How confident are you that you can do the different tasks and activities needed to manage your health condition so as to reduce your need to see a doctor? Select Number: 5 Medication: How confident are you that you can do things other than just taking medication to reduce how much your illness affects your everyday life? Select Number: 6 Total Score:: 5 Nutrition Survey - Nutrition Survey Instructions Scoring Instructions: Scoring is as follows: Yes = 1 points. No = 0 point. Patient score that is >/=12 is considered to be at potential nutritional risk and could benefit from a referral to a registered dietitian. - Nutrition Survey Discharge Have you lost >10 lbs over the past 2 months without trying?: No Are you following a special diet at home for diabetes, low fat, or low salt?: No Are you interested in meeting with a dietitian for help understanding your diet? : No Do you eat less than 3 meals a day?: No Do you eat fatty meats (wray, sausage, ribs, etc), fried foods, desserts, large amounts of salad dressings, margarine, butter, or cheese most days?: No Do you have food allergies? [Enter types in comment field]: No Do you eat in restaurants more than 3 times a week?: No Do you season food with salt, seasoning salt, or garlic salt?: No Do you used canned, boxed, frozen meals, or soups, seasoning packets?: Yes Total Score:: 1
== END 2017-10-15 09:39 | disposition home or self-care (01) ==
LOC: PR 09:30
PROVIDERS: Family Provider Family Medicine; PCP Family Medicine
DX: M35.8 Other specified systemic involvement of connective tissue (principal)
CPT/HCPCS: 97150; G0239

== ENCOUNTER → 2017-10-24 09:34 | Outpatient (CLI) | payer MEDICARE, SELFPAY ==
--- NOTE | 2017-10-25 06:59 | PFT ---
INTRODUCTION: The patient is a 77-year-old male currently under the care of Dr. Sesay that presents for pulmonary function testing secondary to a diagnosis of interstitial lung disease. Respiratory therapy reports that the patient did not meet exhalation criteria on spirometry due to the presence of a cough. Bronchodilators were used during testing. INTERPRETATION: Forced expiration spirometry demonstrates no evidence of a large airways obstructive ventilatory defect. The patient did have a significant bronchodilator response based upon changes noted in FEV1. Spirograms plateau normally but terminate prior to 6 seconds, likely underestimating FVC. 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 The remainder of the lung volumes are symmetrically reduced. Diffusing capacity by single breath CO is mildly reduced at 68% of predicted. 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 The patient did have a significant bronchodilator response. There are no previous pulmonary function studies available for comparison.
== END ==
PROVIDERS: Family Provider Family Medicine; PCP Family Medicine
DX: M35.8 Other specified systemic involvement of connective tissue (principal)
CPT/HCPCS: 94060; 94726; 94729

== ENCOUNTER → 2017-12-02 08:55 | Outpatient (CLI) | payer MEDICARE, SELFPAY ==
--- NOTE | 2017-12-02 08:55 | DT_ITS ---
This patient was seen during an EMR downtime December 01, 2017 - December 08, 2017. This patient may have a combination of paper and electronic documentation or all paper documentation. All documentation is viewable within the e-chart portion of [facility] for each patient visit.
[2017-12-08 17:13] LABS: AST(SGOT) 28 U/L (15-37); Alanine Aminotransfer ALT/SGPT 27 U/L (16-61); Albumin, Serum 3.8 g/dL (3.2-5.0); Alkaline Phosphatase 73 U/L (45-117); BUN 13 mg/dL (7-18); BUN/Creat Ratio 10.6 RATIO (10-20); Calcium,Total 9.1 mg/dL (8.5-10.1); Chloride 98 mmol/L (98-107); Creatinine, Serum 1.23 mg/dL (0.70-1.30); EST Glomerular Filtration Rate 61 mL/min (>60); Est Glom Filt Rate - Afr Amer 74 mL/min (>60); Glucose 92 mg/dL (74-106); Potassium 4.5 mmol/L (3.5-5.1); Protein, Total 7.8 g/dL (6.4-8.2); Sodium Level 136 mmol/L (136-145)
[2017-12-08 17:14] LABS: Anion Gap 8 (5-15)
[2017-12-08 17:28] LABS: Hematocrit 41.8 % (40-54); Hemoglobin 14.2 g/dl (13.0-16.5); Mean Corpuscular Hgb 33.9 pg (27.0-32.0); Mean Corpuscular Volume 99.8 fL (80-94); RBC Distribution Width CV 12.4 % (11.6-14.6); RBC Distribution Width SD 45.1 fl (35.1-43.9); Red Blood Count 4.19 M/mm3 (4.6-6.2); White Blood Count 8.6 K/mm3 (4.4-11.0)
[2017-12-08 17:29] LABS: Absolute Lymphocyte Count 1.92 X10^3/ul (0.83-4.51); Absolute Neutrophil Count 5.6 X10^3/uL (2.0-7.7); Basophil# 0.03 X10^3/uL; Basophil% 0.4 % (0-1); Eosinophils% 1.2 % (0-5); Lymphocyte # 1.92 X10^3/ul (4.0); Lymphocyte % 22.4 % (19-41); Mean Platelet Vol. 10.9 fl (6.2-12.0); Monocyte# 0.88 X10^3/uL; Monocyte% 10.3 % (0-10); Neutrophil # 5.63 X10^3/uL (2.7-7.7); Neutrophil % 65.6 % (47-70); POSITIVE COUNT NO; POSITIVE DIFFERENTIAL NO; POSITIVE MORPHOLOGY NO; Platelet Count 171 K/mm3 (150-450)
== END ==
PROVIDERS: Family Provider Family Medicine; PCP Family Medicine; Visit Provider Internal Medicine Rheumatology
DX: M06.4 Inflammatory polyarthropathy (principal); N40.0 Benign prostatic hyperplasia without lower urinary tract symptoms; M33.90 Dermatopolymyositis, unspecified, organ involvement unspecified; K21.0 Gastro-esophageal reflux disease with esophagitis; K76.0 Fatty (change of) liver, not elsewhere classified; M51.87 Other intervertebral disc disorders, lumbosacral region
CPT/HCPCS: 36415; 80053; 85025

== ENCOUNTER → 2018-03-03 09:44 | Outpatient (CLI) | payer MEDICARE, SELFPAY ==
[2018-03-03 11:11] LABS: Absolute Lymphocyte Count 1.75 X10^3/ul (0.83-4.51); Absolute Neutrophil Count 4.9 X10^3/uL (2.0-7.7); Basophil# 0.02 X10^3/uL; Basophil% 0.3 % (0-1); Eosinophil# 0.14 X10^3/uL; Eosinophils% 1.9 % (0-5); Hematocrit 40.7 % (40-54); Hemoglobin 13.9 g/dl (13.0-16.5); Lymphocyte # 1.75 X10^3/ul (4.0); Lymphocyte % 23.5 % (19-41); Mean Corp Hgb Conc 34.2 g/gl (32-36); Mean Corpuscular Volume 99.5 fL (80-94); Mean Platelet Vol. 11.6 fl (6.2-12.0); Monocyte# 0.64 X10^3/uL; Monocyte% 8.6 % (0-10); Neutrophil # 4.89 X10^3/uL (2.7-7.7); Neutrophil % 65.6 % (47-70); Platelet Count 164 K/mm3 (150-450); RBC Distribution Width CV 12.3 % (11.6-14.6); RBC Distribution Width SD 44.1 fl (35.1-43.9); Red Blood Count 4.09 M/mm3 (4.6-6.2); White Blood Count 7.5 K/mm3 (4.4-11.0)
[2018-03-03 11:21] LABS: POSITIVE COUNT NO; POSITIVE DIFFERENTIAL NO; POSITIVE MORPHOLOGY NO
[2018-03-03 11:43] LABS: ALB/GLOB Ratio 0.9 RATIO (0.9-2.4); AST(SGOT) 29 U/L (15-37); Alanine Aminotransfer ALT/SGPT 30 U/L (16-61); Albumin, Serum 3.5 g/dL (3.2-5.0); Alkaline Phosphatase 73 U/L (45-117); Anion Gap 6 (5-15); BUN 13 mg/dL (7-18); BUN/Creat Ratio 10.1 RATIO (10-20); Calcium,Total 8.7 mg/dL (8.5-10.1); Chloride 101 mmol/L (98-107); Creatinine, Serum 1.29 mg/dL (0.70-1.30); EST Glomerular Filtration Rate 57 mL/min (>60); Est Glom Filt Rate - Afr Amer 69 mL/min (>60); Globulin 3.9 g/dL (2.2-4.2); Glucose 94 mg/dL (74-106); Potassium 4.3 mmol/L (3.5-5.1); Protein, Total 7.4 g/dL (6.4-8.2); Sodium Level 134 mmol/L (136-145)
== END ==
PROVIDERS: Family Provider Family Medicine; PCP Family Medicine; Visit Provider Internal Medicine Rheumatology
DX: M06.4 Inflammatory polyarthropathy (principal); M33.90 Dermatopolymyositis, unspecified, organ involvement unspecified; K21.0 Gastro-esophageal reflux disease with esophagitis; K76.0 Fatty (change of) liver, not elsewhere classified; M51.87 Other intervertebral disc disorders, lumbosacral region; N40.0 Benign prostatic hyperplasia without lower urinary tract symptoms
CPT/HCPCS: 36415; 80053; 85025

== ENCOUNTER → 2018-05-26 10:15 | Outpatient (CLI) | payer MEDICARE, SELFPAY ==
[2018-05-26 12:22] LABS: Absolute Neutrophil Count 3.5 X10^3/uL (2.0-7.7); Basophil# 0.02 X10^3/uL; Basophil% 0.3 % (0-1); Eosinophil# 0.14 X10^3/uL; Eosinophils% 2.2 % (0-5); Hematocrit 42.3 % (40-54); Lymphocyte % 31.6 % (19-41); Mean Corp Hgb Conc 33.1 g/gl (32-36); Mean Corpuscular Hgb 32.6 pg (27.0-32.0); Mean Corpuscular Volume 98.6 fL (80-94); Monocyte# 0.62 X10^3/uL; Monocyte% 9.8 % (0-10); Neutrophil # 3.54 X10^3/uL (2.7-7.7); Neutrophil % 55.9 % (47-70); Platelet Count 180 K/mm3 (150-450); RBC Distribution Width CV 12.9 % (11.6-14.6); RBC Distribution Width SD 46.9 fl (35.1-43.9); Red Blood Count 4.29 M/mm3 (4.6-6.2); White Blood Count 6.3 K/mm3 (4.4-11.0)
[2018-05-26 12:42] LABS: POSITIVE COUNT NO; POSITIVE DIFFERENTIAL NO; POSITIVE MORPHOLOGY NO
[2018-05-26 12:58] LABS: ALB/GLOB Ratio 0.9 RATIO (0.9-2.4); AST(SGOT) 30 U/L (15-37); Alanine Aminotransfer ALT/SGPT 26 U/L (16-61); Albumin, Serum 3.7 g/dL (3.2-5.0); Alkaline Phosphatase 74 U/L (45-117); Anion Gap 4 (5-15); BUN 16 mg/dL (7-18); BUN/Creat Ratio 13.2 RATIO (10-20); CPK Total, Creatine Kinase 128 U/L (39-308); Calcium,Total 8.5 mg/dL (8.5-10.1); Chloride 99 mmol/L (98-107); Creatinine, Serum 1.21 mg/dL (0.70-1.30); EST Glomerular Filtration Rate 62 mL/min (>60); Est Glom Filt Rate - Afr Amer 75 mL/min (>60); Glucose 90 mg/dL (74-106); Potassium 4.3 mmol/L (3.5-5.1); Protein, Total 7.7 g/dL (6.4-8.2); Sodium Level 132 mmol/L (136-145)
--- OUTSIDE RECORDS SUMMARY | 2018-07-08 01:24 | XMS RPT_ITS ---
:1940 Author Organization [facility] Support Name Relationship Address Phone R Unavailable Unavailable Unavailable IVÁN ALEXA Unavailable [address] + [place] [address] R Unavailable Unavailable Unavailable MINOR, ALEXA Unavailable [address] + [place] [address] MIGUEL ANGEL MINOR Unavailable Unavailable + R Unavailable Unavailable Unavailable IVÁN, ALEXA Unavailable [address] + [place] [address] MIGUEL ANGEL MINOR Unavailable Unavailable + R Unavailable Unavailable Unavailable MINOR, ALEXA Unavailable [address] + [place] [address] R Unavailable Unavailable Unavailable MINOR, ALEXA Unavailable [address] + [place] [address] R Unavailable Unavailable Unavailable MINOR, ALEXA Unavailable [address] + [place] [address] MIGUEL ANGEL MINOR Unavailable Unavailable + R Unavailable Unavailable Unavailable MINOR, ALEXA Unavailable [address] + [place] [address] R Unavailable Unavailable Unavailable MINOR, ALEXA Unavailable [address] + [place] [address] R Unavailable Unavailable Unavailable MINOR, ALEXA Unavailable [address] + [place] [address] R Unavailable Unavailable Unavailable MINOR, ALEXA Unavailable [address] + [place] [address] R Unavailable Unavailable Unavailable IVÁN, ALEXA Unavailable [address] + [place] [address] MINOR, MIGUEL ANGEL Unavailable Unavailable + MINOR, MIGUEL ANGEL Unavailable Unavailable + MINOR, MIGUEL ANGEL Unavailable Unavailable + MINOR, MIGUEL ANGEL Unavailable Unavailable + MINOR, MIGUEL ANGEL Unavailable Unavailable + Care Team Providers Name Role Phone Abas, Dr. Roa Attending Unavailable Abas, Dr. Roa Attending Unavailable Abas, Dr. Roa Attending Unavailable FREE, TEXT ENTRY Primary Care Unavailable No Doctor Assigned, Nodr Primary Care Unavailable Abas, Roa Admitting Unavailable Abas, Roa Attending Unavailable Abas, Roa Admitting Unavailable Abas, Roa Attending Unavailable No Doctor Assigned, Nodr Primary Care Unavailable ANN KUHN, TONY Lopes Attending Unavailable TONY JUAREZ MD Primary Care Unavailable JESSE KUHN, ADRIEL Attending Unavailable TONY JUAREZ MD Primary Care Unavailable MANAS CARRILLO Attending Unavailable TONY JUAREZ Primary Care Unavailable MANAS CARRILLO Attending Unavailable ANN TONY Primary Care Unavailable Vellanki, Mounika Attending Unavailable Vellanki, Mounika Referring Unavailable ANN TONY Primary Care Unavailable MANAS CARRILLO Attending Unavailable ANN, TONY Primary Care Unavailable MANAS CARRILLO Attending Unavailable [facility] TONY Primary Care Unavailable MANAS CARRILLO Referring Unavailable Vellanki, Mounika Attending Unavailable Vellanki, Mouniak Referring Unavailable JUAREZ, TONY Primary Care Unavailable MANAS CARRILLO Attending Unavailable MANAS CARRILLO Referring Unavailable ANN TONY Primary Care Unavailable Wily Linder D.O. Attending Unavailable Wily Linder D.O. Referring Unavailable Vellanki, Mounika Attending Unavailable Vellanki, Mounika Referring Unavailable JUAREZ, TONY Primary Care Unavailable Vellanki, Mounika Attending Unavailable Vellanki, Mounika Referring Unavailable JUAREZ, TONY Primary Care Unavailable Vellanki, Mounika Attending Unavailable Vellanki, Mounika Referring Unavailable JUAREZ, TONY Primary Care Unavailable Nathan Abrams Attending Unavailable PROBLEMS PROBLEMS DATE TYPE CONDITION / CODE ATTENDING STATUS SOURCE 05/26/2018 Unknown N40.0 - Benign Vellanki, Active [facility] prostatic M[facility] Community hyperplasia without Hospital lower urinary tract Repository symptoms / N40.0(ICD-10) 05/26/2018 Unknown M51.87 - Other Vellanki, Active [facility] intervertebral disc [facility] disorders, Hospital lumbosacral region / Repository M51.87(ICD-10) 05/26/2018 Unknown K76.0 - Fatty Vellanki, Active [facility] (change of) liver, [facility] not elsewhere Hospital classified / Repository K76.0(ICD-10) 05/26/2018 Unknown M06.4 - Inflammatory Vellanki, 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 Shama [facility] (discharge) systemic involvement [facility] of connective tissue Repository / M35.8(ICD-10) 01/13/2018 Final diagnosis Other specified Dr. Shama [facility] (discharge) interstitial [facility] pulmonary diseases / Repository J84.89(ICD-10) 11/05/2017 Unknown M35.8 - Other Wily Linder Active [facility] specified systemic D.O. Community involvement of Hospital connective tissue / Repository M35.8(ICD-10) 10/07/2017 Final diagnosis Allergic rhinitis, Dr. Shama [facility] (discharge) unspecified / [facility] J30.9(ICD-10) Repository 07/15/2017 Admitting Unknown / SabNathan saravia A Active [facility] Medical diagnosis UNK(Unknown) [facility] [place] Repository 07/08/[address] Shama [facility] (discharge) pulmonary disease, [facility] unspecified / Repository J84.9(ICD-10) 07/08/2017 Final diagnosis Cough / R05(ICD-10) Dr. Shama [facility] (discharge) [facility] Repository 07/08/[address] Shama [facility] pulmonary disease, [facility] unspecified / Repository J84.9(ICD-10) PROCEDURES PROCEDURES No Procedure Records FoundRESULTS RESULTS CBC W/DIFF, AUTOMATED Collected: 05/26/2018 Status: F Source: [facility] 10:21 AM [facility] REPOSITORY TYPE CODE TESTS RESULT OUT OF RANGE REFERENCE UNITS LAB L100.1000 4.4-11.0 K/mm3 Normal WBC 6.3 LAB L100.1200 4.6-6.2 M/mm3 Low RBC 4.29 LAB L100.1300 13.0-16.5 g/dl Normal HGB 14.0 LAB L100.1400 40-54 % Normal HCT 42.3 LAB L100.1500 80-94 fL High MCV 98.6 LAB L100.1600 27.0-32.0 pg High MCH 32.6 LAB L100.1700 32-36 g/gl Normal MCHC 33.1 LAB L100.1810 11.6-14.6 % Normal RDW CV 12.9 LAB L100.1820 35.1-43.9 fl High RDW SD 46.9 LAB L100.1900 150-450 K/mm3 Normal PLT 180 LAB L100.2000 6.2-12.0 fl Normal MPV 11.0 LAB L100.2100 47-70 % Normal NEUT% 55.9 LAB L100.2200 19-41 % Normal LY% 31.6 LAB L100.2300 0-10 % Normal MONO% 9.8 LAB L100.2400 0-5 % Normal EO% 2.2 LAB L100.2500 0-1 % Normal BASO% 0.3 LAB L100.2550 0.0-0.9 % Normal IM GRAN % 0.200 Result Comment: IG% - Immature Granulocytes (promyelocytes, myelocytes and metamyelocytes) > 1% indicates that a LEFT SHIFT is Present. LAB L100.2620 2.0-7.7 X10 3/uL Normal Absolute Neut 3.5 LAB L100.2720 0.83-4.51 X10 3/ul Normal Absolute Lymph 2.00 Performed By: #### L100.0100 #### [facility] [address] [place], [address] COMPREHENSIVE METABOLIC Collected: 05/26/2018 Status: F Source: [facility] 10:21 AM [facility] REPOSITORY TYPE CODE TESTS RESULT OUT OF RANGE REFERENCE UNITS LAB L501.0100 74-106 mg/dL Normal GLU 90 Result Comment: Please note revised GLUCOSE reference range effective 2017. LAB L501.1000 7-18 mg/dL Normal BUN 16 LAB L501.1100 0.70-1.30 mg/dL Normal CREAT,SERUM 1.21 Result Comment: The validity of the calculated GFR AND GFRAA in patients over 70 years has not been determined. Clinical correlation is essential. LAB L501.1110 >60 mL/min Normal EST GFR 62 Result Comment: Non- GFR Calc LAB L501.1115 >60 mL/min Normal EST GFR - AA 75 Result Comment: GFR Calc LAB L501.1300 10-20 RATIO Normal BUN/CRE 13.2 LAB L501.1500 6.4-8.2 g/dL T Normal PROT 7.7 LAB L501.1800 3.2-5.0 g/dL Normal ALB 3.7 LAB L501.1950 2.2-4.2 g/dL Normal GLOB 4.0 LAB L501.2000 0.9-2.4 RATIO Normal A/G 0.9 LAB L501.2200 8.5-10.1 mg/dL CA Normal 8.5 LAB L501.4100 15-37 U/L Normal AST 30 LAB L501.4305 45-117 U/L Normal ALK P 74 LAB L501.4405 16-61 U/L Normal ALT 26 LAB L501.4600 0.20-1.00 mg/dL T Normal BILI 0.80 LAB L501.5300 136-145 mmol/L Low NA 132 LAB L501.5600 3.5-5.1 mmol/L K Normal 4.3 LAB L501.5900 98-107 mmol/L CL Normal 99 LAB L501.6100 21.0-32.0 mmol/L Normal CO2 29.0 LAB L501.6200 5-15 Low GAP 4 Performed By: #### L500.4050, L501.3620 #### [facility] [address] [place], [address] CPK TOTAL, CREATINE Collected: 05/26/2018 Status: F Source: [facility] [place] 10:21 AM [facility] REPOSITORY TYPE CODE TESTS RESULT OUT OF RANGE REFERENCE UNITS LAB L501.3620 39-308 U/L Normal CPK TOTAL 128 Performed By: #### L500.4050, L501.3620 #### [facility] [address] [place], [address] CBC W/DIFF, AUTOMATED Collected: 03/03/2018 Status: F Source: [facility] 9:52 AM [facility] REPOSITORY TYPE CODE TESTS RESULT OUT OF RANGE REFERENCE UNITS LAB L100.1000 4.4-11.0 K/mm3 Normal WBC 7.5 LAB L100.1200 4.6-6.2 M/mm3 Low RBC 4.09 LAB L100.1300 13.0-16.5 g/dl Normal HGB 13.9 LAB L100.1400 40-54 % Normal HCT 40.7 LAB L100.1500 80-94 fL High MCV 99.5 LAB L100.1600 27.0-32.0 pg High MCH 34.0 LAB L100.1700 32-36 g/gl Normal MCHC 34.2 LAB L100.1810 11.6-14.6 % Normal RDW CV 12.3 LAB L100.1820 35.1-43.9 fl High RDW SD 44.1 LAB L100.1900 150-450 K/mm3 Normal PLT 164 LAB L100.2000 6.2-12.0 fl Normal MPV 11.6 LAB L100.2100 47-70 % Normal NEUT% 65.6 LAB L100.2200 19-41 % Normal LY% 23.5 LAB L100.2300 0-10 % Normal MONO% 8.6 LAB L100.2400 0-5 % Normal EO% 1.9 LAB L100.2500 0-1 % Normal BASO% 0.3 LAB L100.2550 0.0-0.9 % Normal IM GRAN % 0.100 Result Comment: IG% - Immature Granulocytes (promyelocytes, myelocytes and metamyelocytes) > 1% indicates that a LEFT SHIFT is Present. LAB L100.2620 2.0-7.7 X10 3/uL Normal Absolute Neut 4.9 LAB L100.2720 0.83-4.51 X10 3/ul Normal Absolute Lymph 1.75 Performed By: #### L100.0100 #### [facility] [address] [place], [address] COMPREHENSIVE METABOLIC Collected: 03/03/2018 Status: F Source: [facility] 9:52 AM [facility] REPOSITORY TYPE CODE TESTS RESULT OUT OF RANGE REFERENCE UNITS LAB L501.0100 74-106 mg/dL Normal GLU 94 Result Comment: Please note revised GLUCOSE reference range effective 2017. LAB L501.1000 7-18 mg/dL Normal BUN 13 LAB L501.1100 0.70-1.30 mg/dL Normal CREAT,SERUM 1.29 Result Comment: The validity of the calculated GFR AND GFRAA in patients over 70 years has not been determined. Clinical correlation is essential. LAB L501.1110 >60 mL/min Low EST GFR 57 Result Comment: Non- GFR Calc LAB L501.1115 >60 mL/min Normal EST GFR - AA 69 Result Comment: GFR Calc LAB L501.1300 10-20 RATIO Normal BUN/CRE 10.1 LAB L501.1500 6.4-8.2 g/dL T Normal PROT 7.4 LAB L501.1800 3.2-5.0 g/dL Normal ALB 3.5 LAB L501.1950 2.2-4.2 g/dL Normal GLOB 3.9 LAB L501.2000 0.9-2.4 RATIO Normal A/G 0.9 LAB L501.2200 8.5-10.1 mg/dL CA Normal 8.7 LAB L501.4100 15-37 U/L Normal AST 29 LAB L501.4305 45-117 U/L Normal ALK P 73 LAB L501.4405 16-61 U/L Normal ALT 30 LAB L501.4600 0.20-1.00 mg/dL T Normal BILI 0.90 LAB L501.5300 136-145 mmol/L Low NA 134 LAB L501.5600 3.5-5.1 mmol/L K Normal 4.3 LAB L501.5900 98-107 mmol/L CL Normal 101 LAB L501.6100 21.0-32.0 mmol/L Normal CO2 27.0 LAB L501.6200 5-15 Normal GAP 6 Performed By: #### L500.4050 #### [facility] [address] [place], [address] FOLLOW UP (PULMONARY Observed: 01/13/2018 Status: K Source: [facility]) 2:10 PM [facility]PIT[facility] REPOSITORY History of Present Illness COPD assessment test (CAT) completed by patient: (CAT) Score: 9 Very pleasant 77-year-old male with history of dermatomyositis, dermatomyositis related ILD presenting for follow-up. Has been doing well since last visit, completed pulmonary had. On the complaining of some GI symptoms - ? Choking on food/feeds. In the middle of his chest. Occasional dry cough, no fever or chills, his dyspnea has improved. 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 Advance directives: Living Will: Living will on file. Healthcare POA: Health care proxy on file. Declaration of Mental Health Treatment: No mental health treatment on file. Domestic Violence Screen: Does not feel threatened or abused physically, emotionally or sexually. Do you feel UNSAFE? The patient feels safe in the home. Depression/Suicide Screening: During the past 2 weeks, the patient has not felt down, depressed or hopeless. During the past 2 weeks, the patient has not felt little interest or pleasure in doing things. Single alcohol screening question: In the past year the patient has had 5 or more drinks (men) or 4 or more drinks (women)? 0 time(s). Single substance abuse screening question: In the past year the patient has used a recreational drug or used a prescription drug for non-medical reasons? 0 time(s). Procedure or Sedation Areas: Not Applicable Nutrition Screening: In the past month, there was not a day when I or anyone in my family went hungry because there was not enough food. Patient Education: The patient denies that they or the person with them has problems with hearing, speaking, seeing, moving around or learning The patient is comfortable filling out medical forms. Tobacco Screening: MEHRDAD does not use tobacco. Review of Systems Constitutional: no chills, no fever and no night sweats. Eyes: no blurred vision and no eyesight problems. ENT: no hearing loss, no nasal congestion, no nasal discharge, no hoarseness and no sore throat. Neck: no mass(es) and no swelling. Cardiovascular: no chest pain, no intermittent leg claudication, no lower extremity edema, no palpitations and no syncope. Respiratory: no cough, no shortness of breath during exertion, no shortness of breath at rest and no wheezing. Gastrointestinal: no abdominal pain, no bloating, no nausea and no vomiting. Musculoskeletal: no arthralgias, no back pain and no myalgias. Integumentary: no rashes. Neurological: no convulsions, no difficulty walking, no diplopia, no dizziness, no dysarthria, no facial weakness, no headache, no limb weakness, no memory changes, no numbness, no speech difficulties and no tingling. Psychiatric: no anxiety, no depression, no anhedonia and no substance use disorders. Endocrine: no changes in appetite, no feelings of weakness, no hair thinning or loss, no heat/cold intolerance, no polydipsia and no recent weight gain. Hematologic/Lymphatic: no tendency for easy bruising and no swollen glands. 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) Past Medical History History of BPH (benign prostatic hyperplasia) (600.00) (N40.0) History of Fatty infiltration of liver (571.8) (K76.0) History of dermatomyositis (V13.3) (Z87.2) Surgical History History of Inguinal Hernia Repair right History of Surgery Vas Deferens Vasectomy History of Umbilical Hernia Repair Family History Family history of Hodgkin's lymphoma (V16.7) (Z80.7) Family history of Colon cancer Family history of cerebral infarction (V17.1) (Z82.3) Family history of malignant neoplasm of prostate (V16.42) (Z80.42) Family history of malignant neoplasm of urinary bladder (V16.52) (Z80.52) Family history of Throat cancer Social History Denied: History of Alcohol use Never smoker Allergies Codeine Derivatives Recorded By: Monet Banks; 05/30/2014 9:42:32 AM doxazosin Recorded By: Monet Banks; 05/30/2014 9:42:32 AM Penicillins Recorded By: Monet Banks; 05/30/2014 9:42:32 AM Uroxatral Recorded By: Monet Banks; 05/30/2014 9:42:32 AM Current Meds Fish Oil 1200 MG Oral Capsule; Therapy: (Recorded:[id number]) to Recorded Dispense: 0 Days ; #: Sufficient CAPS; Refill: 0; KAITLIN = N; Record; Last Updated By: Daniele Avila; 05/31/2014 9:53:27 AM Glucosamine Chondroitin TABS; Therapy: (Recorded:79Lva5707) to Recorded Dispense: 0 Days ; #: Sufficient TABS; Refill: 0; KAITLIN = N; Record; Last Updated By: Daniele Avila; 05/31/2014 9:53:27 AM Heliocare 240 MG Oral Capsule; Therapy: (Recorded:59Crg2259) to Recorded Dispense: 0 Days ; #: Sufficient CAPS; Refill: 0; KAITLIN = N; Record; Last Updated By: Daniele Avila; 05/31/2014 9:53:27 AM Incruse Ellipta 62.5 MCG/INH Inhalation Aerosol Powder Breath Activated; inhale 1 puff by mouth daily; Therapy: 02Jul2017 to Recorded Rx By: ANN; Dispense: 30 Days ; #:30 AEPB; Refill: 0; KAITLIN = N; Record; Last Updated By: Juana Collado; 07/08/2017 8:51:50 AM Mycophenolate Mofetil 500 MG Oral Tablet; Therapy: [id number] to Recorded Rx By: MAHESH; Dispense: 30 Days ; #:60 TABS; Refill: 0; KAITLIN = N; Record; Last Updated By: Ros Sheets; 10/07/2017 8:03:35 AM Pantoprazole Sodium 40 MG Oral Tablet Delayed Release; Therapy: [id number] to Recorded Rx By: WARNER; Dispense: 30 Days ; #:30 TBEC; Refill: 0; KAITLIN = N; Record; Last Updated By: Ros Sheets; 06/02/2017 10:50:58 AM Vitamin B-1 100 MG Oral Tablet; Therapy: (Recorded:62Les1001) to Recorded Dispense: 0 Days ; #: Sufficient TABS; Refill: 0; KAITLIN = N; Record; Last Updated By: Daniele Avila; 05/31/2014 9:53:27 AM Vitamin B-12 1000 MCG Oral Tablet; Therapy: (Recorded:95Yzv7810) to Recorded Dispense: 0 Days ; #: Sufficient TABS; Refill: 0; KAITLIN = N; Record; Last Updated By: Daniele Avila; 05/31/2014 9:53:27 AM Vitamin D3 2000 UNIT Oral Capsule; Therapy: (Recorded:50Kjn3403) to Recorded Dispense: 0 Days ; #: Sufficient CAPS; Refill: 0; KAITLIN = N; Record; Last Updated By: Daniele Avila; 05/31/2014 9:53:27 AM Zinc Gluconate 50 MG Oral Tablet; Therapy: (Recorded:14Jiq4684) to Recorded Dispense: 0 Days ; #: Sufficient TABS; Refill: 0; KAITLIN = N; Record; Last Updated By: Daniele Avila; 05/31/2014 9:53:27 AM Vitals Vital Signs Recorded: 37Ssx4528 01:13PM Heart Rate97 Tvfrseiu585 Rslmiuzja94 Height5 ft 9 in Pzwfif182 lb 14.4 oz BMI Ioqryygffa33.49 BSA Calculated2.03 O2 Yeechgptyb85 Physical Exam Constitutional: Alert and in no acute distress. Well developed, well nourished. Head and Face: Head and face: Normal. Ears, Nose, Mouth, and Throat: External inspection of ears and nose: Normal. Neck: No neck mass was observed. Supple. Pulmonary: Chest: Normal to inspection. Respiratory effort: No increased work of breathing or signs of respiratory distress. Auscultation of lungs: Abnormal. Scattered fine crackles, no rhonchi or wheezing. Cardiovascular: Heart rate and rhythm were normal, normal S1 and S2, no gallops, no murmurs and no pericardial rub. Abdomen: Soft nontender; no abdominal mass palpated. Musculoskeletal: Gait and station: Normal. No clubbing or cyanosis of the fingernails. Skin: Normal skin color and pigmentation, normal skin turgor, and no rash. Psychiatric: Judgment and insight: Intact. Alert and oriented to person, place and time. Scores and Scales Jelm Sleepiness Scale No chance of dozing while sitting and reading. No chance of dozing while watching TV. No chance of dozing while sitting inactive in a public place. No chance of dozing as a passenger in a car for an hour without a break. No chance of dozing while lying down to rest in the afternoon when circumstances permit. No chance of dozing while sitting and talking to someone. No chance of dozing while sitting quietly after a lunch without alcohol. No chance of dozing while in a car stopped for a few minutes in traffic. 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 1. 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 has been doing well since last visit, didn't tolerated increasing his cellcept dose. CT chest from October relatively stable compared to CT from last year PFT with restrictive lung disease TLC 57, normal DLCO, no obstruction Complaining of some GI symptoms - he is known with Dowd esophagitis, hiatal hernia. Instructed to follow-up with -continue cellcept/follow up with Rheumatology (Dr. Constantino) -Completed Pulm rehab -6 mwt in the office today without hypoxemia, lowest sat 90% -proair with spacer as needed (his PFT showed significant response to bronchodilators) -PFT in 1 year for follow up Return to clinic after PFT or sooner with any concerns. This dictation was created using voice recognition software. Phonetic and/or minor grammatical errors may exist. End of Encounter Meds Fish Oil 1200 MG Oral Capsule; Therapy: (Recorded:50Xvl1709) to Recorded Glucosamine Chondroitin TABS; Therapy: (Recorded:80Qtk9855) to Recorded Heliocare 240 MG Oral Capsule; Therapy: (Recorded:57Emz0632) to Recorded Incruse Ellipta 62.5 MCG/INH Inhalation Aerosol Powder Breath Activated; inhale 1 puff by mouth daily; Therapy: 02Jul2017 to Recorded Mycophenolate Mofetil 500 MG Oral Tablet; Therapy: 93Bco7505 to Recorded Pantoprazole Sodium 40 MG Oral Tablet Delayed Release; Therapy: 03Gzh4120 to Recorded Vitamin B-1 100 MG Oral Tablet; Therapy: (Recorded:63Shn1586) to Recorded Vitamin B-12 1000 MCG Oral Tablet; Therapy: (Recorded:05Xlu1545) to Recorded Vitamin D3 2000 UNIT Oral Capsule; Therapy: (Recorded:39Zmb3183) to Recorded Zinc Gluconate 50 MG Oral Tablet; Therapy: (Recorded:93Fsb4223) to Recorded Signatures Electronically signed by : Janina Sesay MD; Jan 13 2018 2:10PM EST (Author) DOWNTIME REPORT Observed: 12/18/2017 Status: F Source: [place] 12:19 PM [facility] REPOSITORY [facility] Medical Records Department [address] [place] [address] Downtime Report MR#: [id number] Acct: [id number] Name: MEHRDAD MINOR Rep #: [id number] : 1940 77 From: Jonnathan Yanes PCP: Tony Juarez MD Status: REG CLI This patient was seen during an EMR downtime December 01, 2017 - December 08, 2017. This patient may have a combination of paper and electronic documentation or all paper documentation. All documentation is viewable within the e-chart portion of [employer] for each patient visit. COMPREHENSIVE METABOLIC Collected: 12/02/2017 Status: F Source: [facility] 12:00 AM [facility] REPOSITORY Order Comment: DOWETIMW FORMS RESULT(S) PREVIOUSLY REPORTED ON MANUAL REQUISITION DURING DOWNTIME. TYPE CODE TESTS RESULT OUT OF RANGE REFERENCE UNITS LAB L501.0100 74-106 mg/dL Normal GLU 92 Result Comment: Please note revised GLUCOSE reference range effective 2017. LAB L501.1000 7-18 mg/dL Normal BUN 13 LAB L501.1100 0.70-1.30 mg/dL Normal CREAT,SERUM 1.23 Result Comment: The validity of the calculated GFR AND GFRAA in patients over 70 years has not been determined. Clinical correlation is essential. LAB L501.1110 >60 mL/min Normal EST GFR 61 LAB L501.1115 >60 mL/min Normal EST GFR - AA 74 LAB L501.1300 10-20 RATIO Normal BUN/CRE 10.6 LAB L501.1500 6.4-8.2 g/dL Normal T PROT 7.8 LAB L501.1800 3.2-5.0 g/dL Normal ALB 3.8 LAB L501.1950 2.2-4.2 g/dL Normal GLOB 4.0 LAB L501.2000 0.9-2.4 RATIO Normal A/G 1.0 LAB L501.2200 8.5-10.1 mg/dL Normal CA 9.1 LAB L501.4100 15-37 U/L Normal AST 28 LAB L501.4305 45-117 U/L Normal ALK P 73 LAB L501.4405 16-61 U/L Normal ALT 27 LAB L501.4600 0.20-1.00 mg/dL Normal T BILI 0.70 LAB L501.5300 136-145 mmol/L Normal NA 136 LAB L501.5600 3.5-5.1 mmol/L Normal K 4.5 LAB L501.5900 98-107 mmol/L Normal CL 98 LAB L501.6100 21.0-32.0 mmol/L Normal CO2 30.0 LAB L501.6200 5-15 Normal GAP 8 Performed By: #### L500.4050 #### [facility] [address] [place], [address] CBC W/DIFF, AUTOMATED Collected: 12/02/2017 Status: F Source: [place] 12:00 AM [facility] REPOSITORY Order Comment: DOWETIMW FORMS RESULT(S) PREVIOUSLY REPORTED ON MANUAL REQUISITION DURING DOWNTIME. TYPE CODE TESTS RESULT OUT OF RANGE REFERENCE UNITS LAB L100.1000 4.4-11.0 K/mm3 Normal WBC 8.6 LAB L100.1200 4.6-6.2 M/mm3 Low RBC 4.19 LAB L100.1300 13.0-16.5 g/dl Normal HGB 14.2 LAB L100.1400 40-54 % Normal HCT 41.8 LAB L100.1500 80-94 fL High MCV 99.8 LAB L100.1600 27.0-32.0 pg High MCH 33.9 LAB L100.1700 32-36 g/gl Normal MCHC 34.0 LAB L100.1810 11.6-14.6 % Normal RDW CV 12.4 LAB L100.1820 35.1-43.9 fl High RDW SD 45.1 LAB L100.1900 150-450 K/mm3 Normal PLT 171 LAB L100.2000 6.2-12.0 fl Normal MPV 10.9 LAB L100.2100 47-70 % Normal NEUT% 65.6 LAB L100.2200 19-41 % Normal LY% 22.4 LAB L100.2300 0-10 % High MONO% 10.3 LAB L100.2400 0-5 % Normal EO% 1.2 LAB L100.2500 0-1 % Normal BASO% 0.4 LAB L100.2550 0.0-0.9 % Normal IM GRAN % 0.100 Result Comment: IG% - Immature Granulocytes (promyelocytes, myelocytes and metamyelocytes) > 1% indicates that a LEFT SHIFT is Present. LAB L100.2620 2.0-7.7 X10 3/uL Normal Absolute Neut 5.6 LAB L100.2720 0.83-4.51 X10 3/ul Normal Absolute Lymph 1.92 Performed By: #### L100.0100 #### [facility] [address] [place] [address]. [place], [place], [id number] CT THORAX W/O Observed: 11/26/2017 Status: F Source: [facility] 11:15 AM [facility] REPOSITORY Exam Date/Time: 11/26/2017 11:44 EDT Reason for Exam: DYSPNEA Report EXAM: CT Thorax w/o Contrast CLINICAL STATEMENT: Dyspnea. Productive cough. COMPARISON: 06/18/2017. TECHNIQUE: ?CT examination of the chest?without IV contrast. Coronal and sagittal reformations were performed. ? Dose reduction techniques were achieved by using automated exposure control and/or adjustment of mA and/or kV according to patient size and/or use of iterative reconstruction technique. FINDINGS: Secondary lobular septal thickening is again noted bilaterally. 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 There is mild groundglass opacification of the lung parenchyma peripherally, predominantly within the bilateral lower lobes. There is mild cardiac enlargement. Moderate diffuse coronary arterial calcifications are present. The pleural spaces are clear. There are stable nonenlarged mediastinal lymph nodes, likely reactive. Stable 1.7 cm benign left adrenal adenoma is present. IMPRESSION: 1. Bilateral secondary lobular septal thickening, bronchiectasis, and subpleural honeycombing are again identified consistent with underlying pulmonary fibrosis, UIP, which is not significantly changed as compared to 06/18/2017. 2. Mild groundglass opacification of the lung parenchyma within the bilateral lower lobes. 3. Stable 1.7 cm benign left adrenal adenoma. 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 Psychosocial - Final Assess - Assessment Depression reassess: Management of stress: Met, Management of depression: Met, Practicing interventions: Met Tobacco - Final Assessment - Program Goals Tobacco Program Goals: Complete smoking cessation. Attend education classes. Improve Knowledge Test score - Stage of Change Stages of Change:: Action - Learning Barriers Learning Barriers: Participates in education - Family Support Do you have family support?: Yes - Tobacco Use Tobacco Use: Non-smoker Do you use smokeless tobacco?: No - Intervention Smoking Cessation Referral:: No Individual Education/Counseling:: No Education Schedule Given:: Yes - Education Education Goal Reached?: Yes Nutrition/Wt Mgmt - Final - Weight Management Weight:: 196 lb Weight Goals Progress:: Goal met Patient Health Questionnaire Discharge Assessment 1. Little interest or pleasure in doing things: Not at all 2. Feeling down, depressed, or hopeless: Several days 3. Trouble falling or staying asleep, or sleeping too much: Several days 4. Feeling tired or having little energy: Several days 5. Poor appetite or overeating: Several days 6. Feeling bad about yourself -- or that you are a failure or have let yourself or your family down: Not at all 7. Trouble concentrating on things, such as reading the newspaper or watching television: Several days 8. Moving or speaking so slowly that other people could have noticed. Or the opposite - being so fidgety or restless that you have been moving around a lot more than usual: More than half the days 9. Thoughts that you would be better off , or of hurting yourself in some way: Not at all How difficult have these problems made it for you to do your work, take care of things at home, or get along with other people?: Somewhat difficult Total Score: 7 COPD Knowledge Test Discharge COPD is a lung disease that:: Makes it hard to breathe AND gets worse over time In the [place] the term COPD describes 2 main lung conditions:: Emphysema AND chronic bronchitis The most common lung irritant that causes COPD is:: Cigarette smoke Common signs and symptoms of COPD include:: An ongoing cough/cough that produces a large amount of mucus, AND SOB If you have COPD, what steps can you take?: All of the above Swelling of the ankles is common in COPD:: False Fatigue [tiredness] is common in COPD:: True Wheezing is common in COPD:: True Crushing chest pain is common in COPD:: False Rapid weight loss is common in COPD:: False Breathlessness is a normal response to exercise: True Exercise should be avoided if it makes you short of breath: False All bronchodilators act within 10 minutes: False A spacer device increases the medication to the lungs: True Annual flu vaccine is recommended for pts w/lung disease: True COPD Knowledge Test Total Score:: 15 COPD Assessment Test [CAT] - Questions Never cough = 0, Cough all the time = 5: 5 No phlegm = 0, Chest full of phlegm = 5: 4 No chest tightness = 0, Chest very tight = 5: 3 No breathless w/exertion = 0, Very breathless w/exertion = 5: 5 No limitations w/activity = 0, Very limited w/activity = 5: 3 Confident leaving home = 0, Not at all confident = 5: 1 Sleep soundly = 0, Don't sleep soundly = 5: 5 Lots of energy = 0, No energy at all = 5: 2 Total CAT score:: 28 Self-Efficacy Discharge Assessment We would like to know how confident you are in doing certain activities. Please select your confidence level for:: Select your confidence level for the following using the scale 1-10 where 1 is not at all confident and 10 is totally confident. Your score is the average of all 6 responses. Fatigue: How confident are you that you can keep the fatigue caused by your disease from interfering with the things you want to do? Select Number: 6 Physical Discomfort or Pain: How confident are you that you can keep the physical discomfort or pain of your disease from interfering with the things you want to do? Select Number: 5 Emotional Distress: How confident are you that you can keep the emotional distress caused by your disease from interfering with the things you want to do? Select Number: 5 Other Symptoms or Health Problems: How confident are you that you can keep other symptoms or health problems from interfering with the things you want to do? Select Number: 5 Different Tasks and Activities: How confident are you that you can do the different tasks and activities needed to manage your health condition so as to reduce your need to see a doctor? Select Number: 5 Medication: How confident are you that you can do things other than just taking medication to reduce how much your illness affects your everyday life? Select Number: 6 Total Score:: 5 Nutrition Survey - Nutrition Survey Instructions Scoring Instructions: Scoring is as follows: Yes = 1 points. No = 0 point. Patient score that is >/=12 is considered to be at potential nutritional risk and could benefit from a referral to a registered dietitian. - Nutrition Survey Discharge Have you lost >10 lbs over the past 2 months without trying?: No Are you following a special diet at home for diabetes, low fat, or low salt?: No Are you interested in meeting with a dietitian for help understanding your diet?: No Do you eat less than 3 meals a day?: No Do you eat fatty meats (wray, sausage, ribs, etc), fried foods, desserts, large amounts of salad dressings, margarine, butter, or cheese most days?: No Do you have food allergies? [Enter types in comment field]: No Do you eat in restaurants more than 3 times a week?: No Do you season food with salt, seasoning salt, or garlic salt?: No Do you used canned, boxed, frozen meals, or soups, seasoning packets?: Yes Total Score:: 1 10/21/17 1051 <Electronically signed by Lionel Dash CRT, AYLA, ISAURA> Date Lionel Dash CRT, RCP, ISAURA Outcome assessment reviewed. Exercise plan approved as documented. Treatment plan and goals support patient needs/abilities. Continue with current plan. I certify the patient demonstrates improvement and remains willing and capable of participation. the patient continues to benefit from pulmonary services/training. The patient may continue at current intensity, endurance and modality and progress per protocol. 10/27/171902<Electronically signed by Jay Velasquez MD> Cosigner Signature: Date Jay Velasquez MD CC: Signed PULMONARY FUNCTION Observed: 10/25/2017 Status: F Source: [facility] TEST 7:03 AM [facility] REPOSITORY [facility] Pulmonary Services/Neurology [address] [place] [address] MR#: [id number] Acct: [id number] Name: MEHRDAD MINOR Rep #: [id number] : 1940 77 From: Wily Linder DO Referring Dr: JANINA SESAY Status: REG CLI Ordering Dr: Date: Location: [facility] Sex: M C INTRODUCTION: The patient is a 77-year-old male currently under the care of Dr. Sesay that presents for pulmonary function testing secondary to a diagnosis of interstitial lung disease. Respiratory therapy reports that the patient did not meet exhalation criteria on spirometry due to the presence of a cough. Bronchodilators were used during testing. INTERPRETATION: Forced expiration spirometry demonstrates no evidence of a large airways obstructive ventilatory defect. The patient did have a significant bronchodilator response based upon changes noted in FEV1. Spirograms plateau normally but terminate prior to 6 seconds, likely underestimating FVC. 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 The remainder of the lung volumes are symmetrically reduced. Diffusing capacity by single breath CO is mildly reduced at 68% of predicted. 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 The patient did have a significant bronchodilator response. There are no previous pulmonary function studies available for comparison. 10/25/17 0703 <Electronically signed by Wily Linder DO> Date Wily Linder DO CC: OUT OF TOWN DOCTOR; Tony Juarez MD Date Dictated: 10/25/17658 Date Transcribed: 10/25/17658 Cut Off Saw Tender Metal: CHAS Signed CBC W/DIFF, AUTOMATED Collected: 10/06/2017 Status: F Source: [place] 10:33 AM [facility] REPOSITORY TYPE CODE TESTS RESULT OUT OF RANGE REFERENCE UNITS LAB L100.1000 4.4-11.0 K/mm3 Normal WBC 7.4 LAB L100.1200 4.6-6.2 M/mm3 Low RBC 4.24 LAB L100.1300 13.0-16.5 g/dl Normal HGB 14.3 LAB L100.1400 40-54 % Normal HCT 42.7 LAB L100.1500 80-94 fL High MCV 100.7 LAB L100.1600 27.0-32.0 pg High MCH 33.7 LAB L100.1700 32-36 g/gl Normal MCHC 33.5 LAB L100.1810 11.6-14.6 % Normal RDW CV 12.9 LAB L100.1820 35.1-43.9 fl High RDW SD 46.9 LAB L100.1900 150-450 K/mm3 Normal PLT 182 LAB L100.2000 6.2-12.0 fl Normal MPV 11.2 LAB L100.2100 47-70 % Normal NEUT% 63.5 LAB L100.2200 19-41 % Normal LY% 26.0 LAB L100.2300 0-10 % Normal MONO% 8.1 LAB L100.2400 0-5 % Normal EO% 1.9 LAB L100.2500 0-1 % Normal BASO% 0.4 LAB L100.2550 0.0-0.9 % Normal IM GRAN % 0.100 Result Comment: IG% - Immature Granulocytes (promyelocytes, myelocytes and metamyelocytes) > 1% indicates that a LEFT SHIFT is Present. LAB L100.2620 2.0-7.7 X10 3/uL Normal Absolute Neut 4.7 LAB L100.2720 0.83-4.51 X10 3/ul Normal Absolute Lymph 1.93 Performed By: #### L100.0100 #### [facility] [address] [place], [address] COMPREHENSIVE METABOLIC Collected: 10/06/2017 Status: F Source: [facility] 10:33 AM [facility] REPOSITORY TYPE CODE TESTS RESULT OUT OF RANGE REFERENCE UNITS LAB L501.0100 74-106 mg/dL Normal GLU 86 Result Comment: Please note revised GLUCOSE reference range effective 2017. LAB L501.1000 7-18 mg/dL Normal BUN 14 LAB L501.1100 0.70-1.30 mg/dL Normal CREAT,SERUM 1.28 Result Comment: The validity of the calculated GFR AND GFRAA in patients over 70 years has not been determined. Clinical correlation is essential. LAB L501.1110 >60 mL/min Low EST GFR 58 Result Comment: Non- GFR Calc LAB L501.1115 >60 mL/min Normal EST GFR - AA 70 Result Comment: GFR Calc LAB L501.1300 10-20 RATIO Normal BUN/CRE 10.9 LAB L501.1500 6.4-8.2 g/dL T Normal PROT 7.9 LAB L501.1800 3.2-5.0 g/dL Normal ALB 3.8 LAB L501.1950 2.2-4.2 g/dL Normal GLOB 4.1 LAB L501.2000 0.9-2.4 RATIO Normal A/G 0.9 LAB L501.2200 8.5-10.1 mg/dL CA Normal 9.1 LAB L501.4100 15-37 U/L Normal AST 36 LAB L501.4305 45-117 U/L Normal ALK P 73 LAB L501.4405 16-61 U/L Normal ALT 34 Result Comment: Please note revised ALT reference range effective 2017. LAB L501.4600 0.20-1.00 mg/dL Normal T BILI 0.90 LAB L501.5300 136-145 mmol/L Low NA 133 LAB L501.5600 3.5-5.1 mmol/L Normal K 4.1 LAB L501.5900 98-107 mmol/L Low CL 97 LAB L501.6100 21.0-32.0 mmol/L Normal CO2 28.0 LAB L501.6200 5-15 Normal GAP 8 Performed By: #### L500.4050 #### [facility] [address] [facility] 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, BS PCP: TONY JUAREZ Exercise - 90-Day Assessment - Exercise Prescription Mode:: Treadmill, Rower, Airdyne, NuStep, Arm Ergometer Frequency (x/week): 3 Duration:: 30 Aerobic Exercise [30-60 min 3-7x/week]:: Progressing Target heart rate: 121 - 114-121 w/max HR 117 Sage MET Level:: 4 - Home Exercise Home Exercise?: No Disease Management - 90-Day - Hypoxemia Reassessment: Demonstrates knowledge of O2 Rx with exercise - Medications Medication list reviewed:: Yes Taking medications 100% of the time:: Met Medication reassessment: Yes Pt demonstrates correct technique timing for MDI, Yes Pt demonstrates correct technique timing for spacer - Bronchial Hygiene Bronchial Hygiene Plan: Yes Pt demo correct for device - demonstrates use acapella, Yes Pt demo correct for improved hydration, Yes Pt demo correct for hand hygiene, Yes Pt demo correct for evalute sputum, Yes Pt demo correct for verbalize when to call MD Psychosocial - 90-Day - Assessment Depression reassess: Management of stress: Met, Management of depression: Met, Practicing interventions: Met Tobacco - 90-Day Assessment - Program Goals Tobacco Program Goals: Complete smoking cessation. Attend education classes. Improve Knowledge Test score - Stage of Change Stages of Change:: Action - Learning Barriers Learning Barriers: Participates in education - Family Support Do you have family support?: Yes - Tobacco Use Tobacco Use: Non-smoker Do you use smokeless tobacco?: No - Intervention Smoking Cessation Referral:: No Individual Education/Counseling:: No Education Schedule Given:: Yes - Education Gave Education Materials For:: Pulmonary Disease, Risk Factors, Breathing Techniques, Medical Compliance, Pulmonary A AND P, Exacerbation Signs AND Symptoms, Stress AND Relaxation Nutrition/Wt Mgmt - 90-Day - Weight Management Weight:: 196 lb - loss 2.5 Weight Goals Progress:: Progressing Patient Health Questionnaire 90-Day Re-eval Assessment 1. Little interest or pleasure in doing things: Not at all 2. Feeling down, depressed, or hopeless: Not at all 3. Trouble falling or staying asleep, or sleeping too much: Not at all 4. Feeling tired or having little energy: Not at all 5. Poor appetite or overeating: Not at all 6. Feeling bad about yourself -- or that you are a failure or have let yourself or your family down: Not at all 7. Trouble concentrating on things, such as reading the newspaper or watching television: Not at all 8. Moving or speaking so slowly that other people could have noticed. Or the opposite - being so fidgety or restless that you have been moving around a lot more than usual: Not at all 9. Thoughts that you would be better off , or of hurting yourself in some way: Not at all How difficult have these problems made it for you to do your work, take care of things at home, or get along with other people?: Not difficult at all Total Score: 0 COPD Assessment Test [CAT] - Questions Never cough = 0, Cough all the time = 5: 2 No phlegm = 0, Chest full of phlegm = 5: 0 No chest tightness = 0, Chest very tight = 5: 0 No breathless w/exertion = 0, Very breathless w/exertion = 5: 2 No limitations w/activity = 0, Very limited w/activity = 5: 1 Confident leaving home = 0, Not at all confident = 5: 1 Sleep soundly = 0, Don't sleep soundly = 5: 3 Lots of energy = 0, No energy at all = 5: 2 Total CAT score:: 11 Self-Efficacy 90-Day Re-eval Assessment We would like to know how confident you are in doing certain activities. Please select your confidence level for:: Select your confidence level for the following using the scale 1-10 where 1 is not at all confident and 10 is totally confident. Your score is the average of all 6 responses. Fatigue: How confident are you that you can keep the fatigue caused by your disease from interfering with the things you want to do? Select Number: 10 Physical Discomfort or Pain: How confident are you that you can keep the physical discomfort or pain of your disease from interfering with the things you want to do? Select Number: 10 Emotional Distress: How confident are you that you can keep the emotional distress caused by your disease from interfering with the things you want to do? Select Number: 10 Other Symptoms or Health Problems: How confident are you that you can keep other symptoms or health problems from interfering with the things you want to do? Select Number: 10 Different Tasks and Activities: How confident are you that you can do the different tasks and activities needed to manage your health condition so as to reduce your need to see a doctor? Select Number: 10 Medication: How confident are you that you can do things other than just taking medication to reduce how much your illness affects your everyday life? Select Number: 10 Total Score:: 10 09/22/17 1422 <Electronically signed by Lionel Dash MATERIAL HANDLING TECHNICIAN, REBAR FABRICATOR, ISAURA> Date Lionel Dash CRT, RCP, BS Outcome assessment reviewed. Exercise plan approved as documented. Treatment plan and goals support patient needs/abilities. Continue with current plan. I certify the patient demonstrates improvement and remains willing and capable of participation. the patient continues to benefit from pulmonary services/training. The patient may continue at current intensity, endurance and modality and progress per protocol. 10/06/17 0853<Electronically signed by Jason Voss MD> Cosigner Signature: Date Jason Voss MD CC: Signed [place] - INDIVIDUAL Observed: 08/25/2017 Status: F Source: [facility] 7:01 PM [facility] REPOSITORY [facility] Pulmonary Rehab Reports [address] [place] [address] CO - Individual Treatment Plan MR#: [id number] Acct: [id number] Name: MEHRDAD MINOR Rep #: [id number] : 1940 77 From: Lionel Dash CRT, AYLA, BS PCP: TONY JUAREZ Exercise - 30-Day Assessment - Exercise Prescription Mode:: Treadmill, Airdyne, NuStep, Arm Ergometer Frequency (x/week): 3 Duration:: 30 Aerobic Exercise [30-60 min 3-7x/week]:: Progressing Target heart rate: 120 - THRR 107-114 Sage.5 MET Level:: 3 - 3.5 currently - Home Exercise Home Exercise:: No Disease Management - 30-Day - Hypoxemia Reassessment: Demonstrates knowledge of O2 Rx at rest, Demonstrates knowledge of O2 Rx with exercise, Using O2 as prescribed, Uses port O2 as prescribed - Medications Medication list reviewed:: Yes Taking medications 100% of the time:: Met - very very well versed in use of his medications. Medication reassessment: Yes Pt demonstrates correct technique timing for MDI, Yes Pt demonstrates correct technique timing for DPI, Yes Pt demonstrates correct technique timing for NEB, Yes Pt demonstrates correct technique timing for spacer Psychosocial - 30-Day - Assessment Reassessment: Practicing interventions Tobacco - 30-Day Assessment - Program Goals Tobacco Program Goals: Complete smoking cessation. Attend education classes. Improve Knowledge Test score - Stage of Change Stages of Change:: Action - Learning Barriers Learning Barriers: Participates in education - Family Support Do you have family support?: Yes - Tobacco Use Tobacco Use: Non-smoker Do you use smokeless tobacco?: No - Intervention Smoking Cessation Referral:: No Individual Education/Counseling:: No Education Schedule Given:: Yes - Education Gave Education Materials For:: Pulmonary Disease, Risk Factors, Breathing Techniques, Medical Compliance, Pulmonary A AND P, Exacerbation Signs AND Symptoms, Stress AND Relaxation Nutrition/Wt Mgmt - 30-Day - Weight Management Weight Assessment:: Wt loss 1-2 lbs per week Weight:: 89.358 kg Weight Goals Progress:: Progressing Patient Health Questionnaire 30-Day Re-eval Assessment 1. Little interest or pleasure in doing things: Not at all 2. Feeling down, depressed, or hopeless: Not at all 3. Trouble falling or staying asleep, or sleeping too much: More than half the days 4. Feeling tired or having little energy: Several days 5. Poor appetite or overeating: Not at all 6. Feeling bad about yourself -- or that you are a failure or have let yourself or your family down: Not at all 7. Trouble concentrating on things, such as reading the newspaper or watching television: Not at all 8. Moving or speaking so slowly that other people could have noticed. Or the opposite - being so fidgety or restless that you have been moving around a lot more than usual: Not at all How difficult have these problems made it for you to do your work, take care of things at home, or get along with other people?: Not difficult at all Total Score: 3 COPD Assessment Test [CAT] - Questions Never cough = 0, Cough all the time = 5: 3 No phlegm = 0, Chest full of phlegm = 5: 3 No chest tightness = 0, Chest very tight = 5: 1 No breathless w/exertion = 0, Very breathless w/exertion = 5: 4 No limitations w/activity = 0, Very limited w/activity = 5: 2 Confident leaving home = 0, Not at all confident = 5: 4 Sleep soundly = 0, Don't sleep soundly = 5: 4 Lots of energy = 0, No energy at all = 5: 3 Total CAT score:: 24 Self-Efficacy 30-Day Re-eval Assessment We would like to know how confident you are in doing certain activities. Please select your confidence level for:: Select your confidence level for the following using the scale 1-10 where 1 is not at all confident and 10 is totally confident. Your score is the average of all 6 responses. Fatigue: How confident are you that you can keep the fatigue caused by your disease from interfering with the things you want to do? Select Number: 7 Physical Discomfort or Pain: How confident are you that you can keep the physical discomfort or pain of your disease from interfering with the things you want to do? Select Number: 6 Emotional Distress: How confident are you that you can keep the emotional distress caused by your disease from interfering with the things you want to do? Select Number: 8 Other Symptoms or Health Problems: How confident are you that you can keep other symptoms or health problems from interfering with the things you want to do? Select Number: 8 Different Tasks and Activities: How confident are you that you can do the different tasks and activities needed to manage your health condition so as to reduce your need to see a doctor? Select Number: 6 Medication: How confident are you that you can do things other than just taking medication to reduce how much your illness affects your everyday life? Select Number: 9 Total Score:: 7 08/25/17 1335 <Electronically signed by Loinel Dash CRT, RCP, BS> Date Lionel Dash CRT, RCP, BS Outcome assessment reviewed. Exercise plan approved as documented. Treatment plan and goals support patient needs/abilities. Continue with current plan. I certify the patient demonstrates improvement and remains willing and capable of participation. the patient continues to benefit from pulmonary services/training. The patient may continue at current intensity, endurance and modality and progress per protocol. 08/25/17 305<Electronically signed by Jay Velasquez MD> Cosigner Signature: Date Jay Velasquez MD CC: Signed CBC W/DIFF, AUTOMATED Collected: 08/11/2017 Status: F Source: [facility] 10:39 AM [facility] [place] REPOSITORY TYPE CODE TESTS RESULT OUT OF RANGE REFERENCE UNITS LAB L100.1000 4.4-11.0 K/mm3 Normal WBC 6.7 LAB L100.1200 4.6-6.2 M/mm3 Low RBC 4.27 LAB L100.1300 13.0-16.5 g/dl Normal HGB 14.4 LAB L100.1400 40-54 % Normal HCT 42.5 LAB L100.1500 80-94 fL High MCV 99.5 LAB L100.1600 27.0-32.0 pg High MCH 33.7 LAB L100.1700 32-36 g/gl Normal MCHC 33.9 LAB L100.1810 11.6-14.6 % Normal RDW CV 13.4 LAB L100.1820 35.1-43.9 fl High RDW SD 48.6 LAB L100.1900 150-450 K/mm3 Normal PLT 162 LAB L100.2000 6.2-12.0 fl Normal MPV 11.0 LAB L100.2100 47-70 % Normal NEUT% 54.5 LAB L100.2200 19-41 % Normal LY% 29.6 LAB L100.2300 0-10 % High MONO% 10.4 LAB L100.2400 0-5 % High EO% 5.1 LAB L100.2500 0-1 % Normal BASO% 0.2 LAB L100.2550 0.0-0.9 % Normal IM GRAN % 0.200 Result Comment: IG% - Immature Granulocytes (promyelocytes, myelocytes and metamyelocytes) > 1% indicates that a LEFT SHIFT is Present. LAB L100.2620 2.0-7.7 X10 3/uL Normal Absolute Neut 3.6 LAB L100.2720 0.83-4.51 X10 3/ul Normal Absolute Lymph 1.97 Performed By: #### L100.0100 #### [facility] [address] [place], [address] COMPREHENSIVE METABOLIC Collected: 08/11/2017 Status: F Source: [facility] 10:39 AM [facility] [place] REPOSITORY TYPE CODE TESTS RESULT OUT OF RANGE REFERENCE UNITS LAB L501.0100 74-106 mg/dL Normal GLU 94 Result Comment: Please note revised GLUCOSE reference range effective 2017. LAB L501.1000 7-18 mg/dL Normal BUN 12 LAB L501.1100 0.70-1.30 mg/dL High CREAT,SERUM 1.31 Result Comment: The validity of the calculated GFR AND GFRAA in patients over 70 years has not been determined. Clinical correlation is essential. LAB L501.1110 >60 mL/min Low EST GFR 56 Result Comment: Non- GFR Calc LAB L501.1115 >60 mL/min Normal EST GFR - AA 68 Result Comment: GFR Calc LAB L501.1300 10-20 RATIO Low BUN/CRE 9.2 LAB L501.1500 6.4-8.2 g/dL Normal T PROT 8.0 LAB L501.1800 3.2-5.0 g/dL Normal ALB 3.8 LAB L501.1950 2.2-4.2 g/dL Normal GLOB 4.2 LAB L501.2000 0.9-2.4 RATIO Normal A/G 0.9 LAB L501.2200 8.5-10.1 mg/dL Normal CA 8.9 LAB L501.4100 15-37 U/L Normal AST 31 LAB L501.4305 45-117 U/L Normal ALK P 64 LAB L501.4405 16-61 U/L Normal ALT 32 Result Comment: Please note revised ALT reference range effective 2017. LAB L501.4600 0.20-1.00 mg/dL High T BILI 1.20 LAB L501.5300 136-145 mmol/L Low NA 133 LAB L501.5600 3.5-5.1 mmol/L Normal K 3.7 LAB L501.5900 98-107 mmol/L Normal CL 98 LAB L501.6100 21.0-32.0 mmol/L Normal CO2 29.0 LAB L501.6200 5-15 Normal GAP 6 Performed By: #### L500.4050, L501.3620 #### [facility] [address], [address] CPK TOTAL, CREATINE Collected: 08/11/2017 Status: F Source: [facility] 10:39 AM [facility] [place] REPOSITORY TYPE CODE TESTS RESULT OUT OF RANGE REFERENCE UNITS LAB L501.3620 39-308 U/L Normal CPK TOTAL 121 Performed By: #### L500.4050, L501.3620 #### [facility] [address] [place], [address] ALDOLASE Collected: 08/11/2017 Status: F Source: [place] 10:39 AM [facility] [place] REPOSITORY TYPE CODE TESTS RESULT OUT OF RANGE REFERENCE UNITS LAB L3100.7000 3.3-10.3 U/L Normal ALDOLASE 2030 4.2 Result Comment: Performed at: - [facility] [address] [id number] Tool Procurement Coordinator: Vick Torres PhD, Phone: [phone] Performed By: #### L3100.7000 #### [facility] (refer to report for specific site) refer to report for address and phone number CO - HISTORY AND Observed: 08/08/2017 Status: F Source: [facility] 6:05 PM [facility] [place] REPOSITORY [facility] Pulmonary Rehab Reports [address] [place] [address] CO - History AND Physical MR#: [id number] Acct: [id number] Name: MEHRDAD MINOR Rep #: [id number] : 1940 77 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 Janina Sesay [place], [place] Primary Diagnosis: Pulmonary Fibrosis History of Present Illness: Patient is a 77 year old male who presents to pulmonary rehab today with pulmonary fibrosis. The patient is under the care of Dr. Janina Sesay at the [facility] in [place], [place]. The patient is unable to perform pulmonary function testing due to uncontrollable cough. mMRC Breathless Scale: When is the patient short of breath? Y/N Grade: Description of Breathlessness: Respiratory Problems: Yes: Chest Pain, Fatigue, Wheezing, Able to Speak in Full Sentences, Hoarseness, Dyspnea with Activity, Cough with Secretions - Secretions Amount/Day:: not always Cough:: Yes A.T.C.: Yes Sleep Disorder Evaluation: EPWORTH SLEEPINESS SCALE 0 = NO chance of dozing 2 = MODERATE chance of dozing 1 = SLIGHT chance of dozing 3 = HIGH chance of dozing : SITUATION: CHANCE OF DOZING: Sitting and Reading Watching TV Sitting inactive in a public place (i.e. 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 Psychiatric History: no pertinent psych hx Surgical History: - - umbilical hernia repair 95, removal of pilonidal cyst, vasectomy. Family History: Unknown: Maternal, Paternal, Heart Disease: Sibling - brothers [place], Stroke: Sibling - 2 brothers had CVA Additional Family History: Sister in [place] had fibromyalgia. - Social History Marital Status: Assistive Devices:: none Fall history:: none Interest/Hobbies:: golfing in the past. Now sun sensitive can't golf. Transportation Needs:: own Employment:: Retired Smoking Status: Never smoker - Living Arrangement Patient lives with other person(s) in the home:: AROUND THE CLOCK - Current/ Previous Services [facility] Home Health:: No Other Home Health:: No [facility] Cardiac Rehab:: No Life (Palliative) Care Services:: No Tobacco Use AND Smoking Cessation:: No Pulmonary Rehab:: No Social History - Smoking History Smoking Status: Never smoker Hx Tobacco Use: No Hx Smoking Exposure: No - Alcohol Use Alcohol Usage: Yes - past history, no alcohol since 2010. - Substance Abuse Hx Substance Use: No - Occupation Occupation (List type of work in comments):: Retired - Hobbies, Recreation, Social Activities Hobbies: Other - used to enjoy golfing, but unable due to sun sensitivity. Recreational Activities: I am able to engage in most, but not all activities Medications AND Vaccination Info Home Medications: Ambulatory Orders Fish Oil/Dha/Epa [Fish Oil 1,200 mg Fish Oil] 1,200 mg PO BID 08/27/13 Zinc 50 mg PO DAILY 08/27/13 Ascorbic Acid [Vitamin C] 1,000 mg PO 07/18/17 B12/Levomefolate Calcium/B-6 [Foltx Tablet] 1 each PO 07/18/17 Famotidine [Pepcid] 20 mg PO 07/18/17 Lactobacillus Combination No.8 [Adult Probiotic] 1 each PO 07/18/17 Oxygen, Home [Home Oxygen] 2 lpm NASAL PRN 07/18/17 Do you use a peak flow meter at home?: No Do you use a spacer device with your inhalers?: No Number of hospital visits in the last year?: 0 Number of emergency room visits in the last year?: 0 Do you see your physician on a regular schedule?: Yes How often?: Leasing Associate 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, PCP PRN, Contact Printer Dry Film 3 mo Has adequate access AND meets healthcare needs?: Yes - Drug Regimen Review Indication of potential clinical significant med issues (drug reactions, ineffective therapy, side effects, interactions, duplicate therapy, omissions, dose errors, or non-compliance)?: No problems found during review Was a physician or the physican designee contacted within one calendar day to resolve clinically significant medication issues, including reconcilitation?: No Review of Systems Constitutional: Denies: Chills, Fever, Weight Change HEENT: Reports: Hard of Hearing, Nasal Congestion, Post Nasal Drip, Sinus Drainage. Denies: Head Aches, Sinus Congestion Cardiovascular: Denies: Chest Pain, Palpitations Respiratory: Reports: Pleuritic Pain, Shortness of Breath, Shortness of breath upon exertion. Denies: Cough, Shortness of breath at rest, Sputum production Musculoskeletal: Denies: Joint Pain, Joint Tenderness Skin: Reports: Rash. Denies: Wounds Neurological: Reports: Blurred vision, Double vision. 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 Living Will: Yes Advance Directives Information Provided: No Advance Directives on File: No - Patient encourage to provide copies to HIM for scan DNR Order?:: No Coping/Social Support/Other - Abuse and Neglect Do you feel safe in your surroundings?:: YES Are there sign/symptoms of abuse?: No Has anyone physically or mentally abused you?: No Has anyone threatened to harm you in any way?: No Been asked to sign a document that you don't understand?: No - Exacerbation History Recent exposure to illness?: No Known carrier?: No Antibiotic Taken:: No - Nutrition Risk Factor Are you on a special diet?: No Diff. chewing/swallowing:: No Have you had a change in your weight?: No Physical Exam - Vital Signs Temperature: 98.6 F Pulse Rate: 72 Respiratory Rate: 16 Pulse Ox at rest: 98 - at rest Blood Pressure: 128/68 Nailbeds:: cyonotic after walking Height: 5 ft 10 in Weight:: 90.718 kg Weight Source: Estimated by Patient Body Mass Index (BMI): 28.7 - Physical Exam General: Alert, Oriented x3, Cooperative Neck: Supple, No JVD, Negative Carotid Bruits, Negative Hepatojugular Reflux Lungs: Clear to auscultation, Normal air movement Cardiovascular: Regular rate, Regular Rhythm, No murmurs Extremities: No edema, Capillary Refill Less than 3 Seconds, Clubbing, Cyanosis, Peripheral Pulses Normal Musculoskeletal: No Tenderness to Palpation of Joints or Extremities Psych/Mental Status: Normal Affect, Appropriate - Pain Is Patient Pain Free?: Yes Pain Location: none Pain Level: 0/10 - Hearing/Speech/Vision/Spiritual Cultural/Evangelical Needs that may affect Treatment Plan: No Do you have any Spiritual/Emotional needs of which our Teller Supervisor Ministry could be of assistance?: No Teller Supervisor to contact Place of Religion?: No Primary Language: Khmer Preferred Language: Khmer Right Hearing Abillity: Hard of Hearing Visual Difficulty: Near Sighted, Far Sighted - wears corrective eye lenses - Motivation to Participate On a scale of 1 to 10, how prepared are you to commit to attending pulmonary rehabilitation?: 10 What do you see as barriers to successfully being able to complete the program?: just the breathing problem What do you see as the benefits of succesfully completing the program? In other words, what do you hope to get out of participating in the program?: improved quality of life Are there issues you are dealing with that will interfere with completing the program?: none Do you have a spouse or signficant other, family or friends who will help support you to complete the program?: yes Diagnostic Data Review - Diagnostic and Imaging Results CT Scan of Chest: see EMR - Cardiovascular Studies Heart Catherization: see EMR Cardiac Stress Test: See EMR Functioning ADL/IADL - Functional Capacity ADL/IADL GROOMING: Current ability to tend safely to personal hygiene needs (i.e., washing face/hands, hair care, shaving or make up, teeth or denture care, fingernail care).: Able to groom self unaided, w/ or w/o the use of assistive devices. Current ABILITY TO DRESS UPPER BODY safely (with or w/out dressing aids) including undergarments, pullovers, front-opening shirts AND blouses, managing zippers, buttons, AND snaps:: Gets clothes out, puts on, and removes from upper body w/o assist. Current ABILITY TO DRESS LOWER BODY safely (with or w/out dressing aids) including undergarments, slacks, socks or nylons, shoes:: Able to obtain, put on, AND remove clothing and shoes w/out assistance. Bathing: Current ability to wash entire body safely. EXCLUDES grooming (washing face, washing hands and shampooing hair): Bathes self in shower/tub independently, incl getting in AND out TOILET TRANSFERRING: Current ability to get to AND from the toilet/BSC safely and transfer on AND off toilet/commode.: Gets to AND from toilet, transfers independently w/ or w/o a device. TOILETING HYGIENE: Current ability to maintain perineal hygiene safely, adjust clothes and/or incontinence pads before AND after using toilet, commode, bedpan, urinal. If managing ostomy, includes cleaning: Manages toileting hygiene AND clothing management w/out assist TRANSFERRING: Current ability to move safely from bed to chair, or ability to turn and position self in bed if patient is bedfast.: Able to independently transfer. AMBULATION/LOCOMOTION: Current ability to walk safely, once in a standing position, or use wheelchair, once in a seated position, on a variety of surfaces.: Able to IND walk on even/uneven surface AND use stairs with or w/o railing FEEDING or EATING: Current ability to feed self meals and snacks safely. NOTE: This refers only to the process of eating, chewing and swallowing, not preparing the food to be eaten.: Able to independently fee ABILITY TO PLAN AND PREPARE MEALS: (e.g., cereal, sandwich) or reheat delivered meals safely.: IND prepare light meals/reheat delvrd meals/Or can but hasn't done so. ABILITY TO USE TELEPHONE: Current ability to answer the phone safely, including dialing numbers, and effectively using the telephone to communicate.: Able to dial numbers and answer calls appropriately and as desired. - Pt Functioning Prior to Problem Self-Care (e.g.,grooming, dressing, AND bathing): INDEPENDENT Ambulation: INDEPENDENT Transfer: INDEPENDENT Household tasks (e.g., light meal prep, laundry, shopping): INDEPENDENT 07/18/17 1021 <Electronically signed by Lionel Dash CRT, RCP, ISAURA> Date Lionel Dash CRT, RCP, ISAURA Outcome assessment reviewed. Exercise plan approved as documented. Treatment plan and goals support patient needs/abilities. Continue with current plan. I certify the patient demonstrates improvement and remains willing and capable of participation. the patient continues to benefit from pulmonary services/training. The patient may continue at current intensity, endurance and modality and progress per protocol. 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, BS PCP: TONY JUAREZ General Information - General Information Admitting Diagnosis: Pulmonary Fibrosis M35.8 - Education/Goals Barriers to Learning: Hearing Impairment, Vision Impairment Individual Counseling: Initial Assessment: Dyspnea control techniques at rest, activity, and ADLs, O2, Rx, system, safety, Panic AND depression management Patient Goals: Breathe better: Initial Assessment, Increase endurance/stamina: Initial Assessment Exercise - Initial Assessment - Visit Date of Eval: 07/18/17 - Problem/Goals Problems: Deconditioning, No regular exercise, Knowledge deficit exercise guidelines, Knowledge deficit exercise safety - Exercise Prescription Mode:: Treadmill, Airdyne, NuStep, Arm Ergometer Frequency (x/week): 3 Duration:: 30 MET LEVEL:: 2 HR (bpm):: 108 - 100-108 THRR Exercise Progression: per protocol as tolerated. - Plan Plan and Plan to Review:: Benefits of exercise, Core components of exercise, How to measure dyspnea level, How to monitor dyspnea level, Exercise intensity, Exercise safety guideline, Home exercise guidelines, Sage: 3-/-13 Disease Management - Initial - Problems/Goals-Hypoxemia Hypoxemia Problems:: Hypoxemia Hypoxemia Goals:: Using O2 as Rx's safely - Problems/Goals-Bronchial Hygiene Bronchial Hygiene Problems:: Respiratory infection Prevention/Management Bronchial Hygiene Goals:: Pt describes signs and symptoms of infection. - Initial Assessment Medications: No MDI, No DPI, No NEB, No Spacer Patient Reports:: Non-productive cough - Plans Hypoxemia Plan:: Monitor SpO2 rest AND with exercise, Train appropriate O2 use at rest, Train appropriate O2 use with exercise, Train O2 safety AND systems Reviewed prescribed medications:: Purpose, Schedule, Side effects, Importance of compliance Bronchial Hygiene Plan: Controlled cough, Vibratory PEP device, Hydration, Hand hygiene, Signs/symptoms to report:, Influenza/Pneumovax vaccines Psychosocial - Initial Assess - Problems/Goals Problems: Impaired Q.O.L. Psychosocial Goals: Improved Q.O.L. - Psychosocial Test Depression:: Impaired QOL Referred to MD for counseling:: No - Plan Reviewed screening results: No Instructions given regarding:: Benefits of exercise, Relaxation techniques, Training in coping strategies Tobacco - Initial Assessment - Program Goals Tobacco Program Goals: Complete smoking cessation. Attend education classes. Improve Knowledge Test score - Stage of Change Stages of Change:: Action - Learning Barriers Learning Barriers: Hearing, Vision - Tobacco Use Do you use smokeless tobacco?: No - Intervention Smoking Cessation Referral:: No Individual Education/Counseling:: No Education Schedule Given:: Yes - Education Gave Education Materials For:: Pulmonary Disease, Risk Factors, Breathing Techniques, Medical Compliance, Pulmonary A AND P, Exacerbation Signs AND Symptoms, Stress AND Relaxation Nutrition/Wt Mgmt - Initial - Problems/Goals Problems: Overweight Goals: Wt Loss 1-2 lbs per week - Weight Management Knowledge Deficit Management of:: Overweight, Lack of vitamin D/Ca++ supplement Admit Height:: 5 ft 10 in Admit Weight:: 90.718 kg Admit BMI:: 28.7 - Diabetes Diabetes:: No Insulin: No Do you monitor your blood sugar at home?: No - Intervention Referral to dietitian:: No Referral to Diabetic Clinic:: No Will attend diet classes:: Yes - Plan Nutrition Plan: Yes Nutrition education class:, Yes Medication education class [Prednisone]:, Yes Weight control education class: Patient Health Questionnaire Initial Assessment 1. Little interest or pleasure in doing things: Not at all 2. Feeling down, depressed, or hopeless: Several days 3. Trouble falling or staying asleep, or sleeping too much: Nearly every day 4. Feeling tired or having little energy: Several days 5. Poor appetite or overeating: Not at all 6. Feeling bad about yourself -- or that you are a failure or have let yourself or your family down: Not at all 7. Trouble concentrating on things, such as reading the newspaper or watching television: Not at all 8. Moving or speaking so slowly that other people could have noticed. Or the opposite - being so fidgety or restless that you have been moving around a lot more than usual: Not at all 9. Thoughts that you would be better off , or of hurting yourself in some way: Not at all How difficult have these problems made it for you to do your work, take care of things at home, or get along with other people?: Somewhat difficult Total Score: 5 COPD Knowledge Test Initial COPD is a lung disease that:: Makes it hard to breathe AND gets worse over time In the [place] the term COPD describes 2 main lung conditions:: Cystic fibrosis AND chronic bronchitis The most common lung irritant that causes COPD is:: Cigarette smoke Common signs and symptoms of COPD include:: An ongoing cough/cough that produces a large amount of mucus, AND SOB If you have COPD, what steps can you take?: All of the above Swelling of the ankles is common in COPD:: False Fatigue [tiredness] is common in COPD:: True Wheezing is common in COPD:: True Crushing chest pain is common in COPD:: False Rapid weight loss is common in COPD:: True Breathlessness is a normal response to exercise: True Exercise should be avoided if it makes you short of breath: False All bronchodilators act within 10 minutes: False A spacer device increases the medication to the lungs: False Annual flu vaccine is recommended for pts w/lung disease: True COPD Knowledge Test Total Score:: 12 COPD Assessment Test [CAT] - Questions Never cough = 0, Cough all the time = 5: 4 No phlegm = 0, Chest full of phlegm = 5: 4 No chest tightness = 0, Chest very tight = 5: 2 No breathless w/exertion = 0, Very breathless w/exertion = 5: 5 No limitations w/activity = 0, Very limited w/activity = 5: 3 Confident leaving home = 0, Not at all confident = 5: 5 Sleep soundly = 0, Don't sleep soundly = 5: 5 Lots of energy = 0, No energy at all = 5: 3 Total CAT score:: 31 Self-Efficacy Initial Assessment We would like to know how confident you are in doing certain activities. Please select your confidence level for:: Select your confidence level for the following using the scale 1-10 where 1 is not at all confident and 10 is totally confident. Your score is the average of all 6 responses. Fatigue: How confident are you that you can keep the fatigue caused by your disease from interfering with the things you want to do? Select Number: 6 Physical Discomfort or Pain: How confident are you that you can keep the physical discomfort or pain of your disease from interfering with the things you want to do? Select Number: 5 Emotional Distress: How confident are you that you can keep the emotional distress caused by your disease from interfering with the things you want to do? Select Number: 8 Other Symptoms or Health Problems: How confident are you that you can keep other symptoms or health problems from interfering with the things you want to do? Select Number: 8 Different Tasks and Activities: How confident are you that you can do the different tasks and activities needed to manage your health condition so as to reduce your need to see a doctor? Select Number: 5 Medication: How confident are you that you can do things other than just taking medication to reduce how much your illness affects your everyday life? Select Number: 8 Total Score:: 6 Nutrition Survey - Nutrition Survey Instructions Scoring Instructions: Scoring is as follows: Yes = 1 points. No = 0 point. Patient score that is >/=12 is considered to be at potential nutritional risk and could benefit from a referral to a registered dietitian. - Nutrition Survey Initial Have you lost >10 lbs over the past 2 months without trying?: No Are you following a special diet at home for diabetes, low fat, or low salt?: No Are you interested in meeting with a dietitian for help understanding your diet?: No Do you eat less than 3 meals a day?: No Do you eat fatty meats (wray, sausage, ribs, etc), fried foods, desserts, large amounts of salad dressings, margarine, butter, or cheese most days?: No Do you have food allergies? [Enter types in comment field]: No Do you eat in restaurants more than 3 times a week?: Yes Do you season food with salt, seasoning salt, or garlic salt?: No Do you used canned, boxed, frozen meals, or soups, seasoning packets?: Yes Total Score:: 2 07/18/17 1119 <Electronically signed by Lionel Dash CRT, RCP, BS> Date Lionel Dash CRT, RCP, BS Outcome assessment reviewed. Exercise plan approved as documented. Treatment plan and goals support patient needs/abilities. Continue with current plan. I certify the patient demonstrates improvement and remains willing and capable of participation. the patient continues to benefit from pulmonary services/training. The patient may continue at current intensity, endurance and modality and progress per protocol. 08/08/17 9761<Electronically signed by Jason Voss MD> Cosigner Signature: Date Jason Voss MD CC: Signed CBC Collected: 07/15/2017 Status: F Source: [facility] 2:10 PM [facility] REPOSITORY Order Comment: REDRAW, ORIGINAL CLOTTED TYPE CODE TESTS RESULT OUT OF RANGE REFERENCE UNITS LAB L200.43532 4.5-11.0 K/CU MM Normal WBC 7.7 LAB L200.69453 4.50-6.00 M/CU MM Low RBC 4.08 LAB L200.49631 13.5-17.5 G/DL Normal HGB 13.6 LAB L200.01820 41.0-53.0 % Low HCT 39.4 LAB L200.64699 80.0-99.0 fl Normal MCV 96.6 LAB L200.04658 32.0-36.0 GM/DL Normal MCHC 34.5 LAB L200.69114 11-14.5 Normal RDW 12.7 LAB L200.92380 9.4-12.4 Normal MPV 11.3 LAB L200.06808 150-450 K/CU MM Normal PLT 163 Result Comment: Confirmed by slide estimate. LAB L200.04948 Less than 1 % Normal NRBC 0.0 Performed By: #### L200.73095 #### [facility] [place] [address] PT Collected: 07/15/2017 Status: F Source: 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 For heart valve and shunt patients the range is 2.5 - 3.5. LAB L300.86669 9.4-12.0 SECONDS Normal PTS 11.4 Performed By: #### L300.22709, L300.47504 #### [facility] [address] [place] [address] PTT Collected: 07/15/2017 Status: F Source: [facility] 12:50 PM [facility] REPOSITORY Order Comment: Clark: M TYPE CODE TESTS RESULT OUT OF RANGE REFERENCE UNITS LAB L300.83462 22.5-31.4 SECONDS Normal PTT 25.2 Result Comment: Therapeutic Heparin Reference Range: High Dose: 56 - 86 seconds (DVT/PE) Low Dose: 50 - 70 seconds (Acute Coronary Syndrome) For low molecular weight heparin or danaparoid, monitoring is often NOT necessary, but the heparin assay, Xa inhibition assay (send-out) may be used in certain circumstances, as the PTT is generally insensitive to the effect of these agents. Direct thrombin inhibitors are becoming more widely utilized and these drugs are often monitored using the PTT. Performed By: #### L300.56003, L300.00119 #### [facility] [address] [place] [address] BMP Collected: 07/15/2017 Status: F Source: [facility] 12:23 PM [facility] REPOSITORY Order Comment: Clark: TYPE CODE TESTS RESULT OUT OF RANGE REFERENCE UNITS LAB L500.11622 136-145 MMOL/L Normal NA 137 LAB L500.36121 3.5-5.1 MMOL/L Normal K 4.3 LAB L500.08329 98-107 MMOL/L Normal CL 101 LAB L500.10396 21-32 MMOL/L Normal CO2 27 LAB L500.18178 5-16 MMOL/L Normal AGAP 9 LAB L500.78353 70-100 MG/DL Normal GLU 94 Result Comment: 70-100- Normal Fasting; 100-125 Impaired Fasting; greater than 126 on more than one result- Diabetes. ADA guidelines. Results may be falsely elevated after the administration of Sulfapyridine. Results may be falsely depressed after the administration of Sulfasalazine. LAB L500.15408 7-26 MG/DL Normal BUN 11 LAB L500.58588 0.670-1.170 MG/DL Normal CREAT 1.160 Result Comment: Patients receiving either N-Acetylcysteine (NAC) or Metamizole prior to venipuncture, may have falsely depressed results. LAB L500.04220 15-24 Low BUN/CREA 9 LAB L500.30375 8.5-10.1 MG/DL Normal CALCIUM TOTAL 8.9 Performed By: #### L500.56843, L500.60579 #### [facility] [place] [address] GFR EST Collected: 07/15/2017 Status: F Source: [facility] 12:23 PM [facility] REPOSITORY Order Comment: Clark: M TYPE CODE TESTS RESULT OUT OF RANGE REFERENCE UNITS LAB L500.09847 ML/MIN Normal IF non-AFR Greater than AMER 60 LAB L500.80476 ML/MIN Normal IF Greater than AMER 60 Performed By: #### L500.22609, L500.90467 #### [facility] [address] [place] [address] CCCASE Observed: 07/15/2017 Status: UNK Source: [facility] 11:42 AM [facility] REPOSITORY Directions to view CARDIAC END OF CASE REPORT in a PDF format To view the Cardiac END OF CASE report you must go to Clinical Review (PWM/Physician Desktop) and - Select the patient - Select the Vist the report is on - Click the Globe on the bottom left and the PDF report will launch (PDF's can't be viewed in [employer] directly) \\[employer]\Case_Reports\[id number].pdf CC Observed: 07/15/2017 Status: UNK Source: [facility] 11:42 AM [facility] REPOSITORY DATE OF SERVICE: 07/15/2017 PROCEDURE: Coronary angiography. REFERRING PHYSICIAN: Tony Juarez MD and Louis Jones MD BRIEF HISTORY: A 77-year-old white male was evaluated for chest pain, dyspnea on exertion and abnormal stress test for ischemia with ejection fraction 63% with anteroseptal apical ischemia so referred for cardiac catheterization to delineate the coronary anatomy. Patient with known pulmonary fibrosis, GERD. He never smoked, no secondhand smoke. Family history of coronary artery disease and history of dermatomyositis since 2010 with rash and itches, skin cancer, hernia repair. ALLERGIES: He is allergic to PENICILLIN, CODEINE, CIPROFLOXACIN. PREPROCEDURE LABS: Include creatinine 1.16, BUN 11, sodium 4.3, glucose 94. PROCEDURE DETAILS: Patient was brought to cardiac catheterization lab, positioned in the usual fashion. Right radial artery approach under complete aseptic and sterile conditions, 2% Xylocaine without epinephrine used for local anesthesia. Using modified Seldinger technique, 5-Guyanese arterial sheath was placed, right radial artery. Angiography was performed utilizing 5-Guyanese AL2, JL4, JR4. At the conclusion of the procedure, the arterial sheath was removed, hemostasis secured by HemoBand. Patient transferred back to the unit in stable condition. COMPLICATIONS: None. RESULTS: 1. Left main large caliber vessel with no angiographic evidence of disease, normally bifurcates into LAD and circumflex coronary artery. 2. Left anterior descending coronary artery large caliber vessel, reaches, wraps around the apex, 20% to 30% plaque disease. First diagonal was up 55%, nonocclusive plaque disease. 3. Circumflex coronary artery large caliber, nondominant with minor plaque disease. 4. Right coronary artery large caliber dominant vessel with 20% to 30% nonocclusive plaque disease. CONCLUSION: No angiographic evidence of occlusive coronary artery disease as above. Nathan Abrams MD [facility] PATIENT NAME: MEHRDAD MINOR [address] [facility] [address] MEDICAL REC #: [id number] [place] [address] ADMIT DATE: DISCHARGE DATE: CARDIAC CATH ATTENDING PHY: Nathan Abrams MD /[id number] SSI File#: [id number] Verified/Reviewed by 08/25/17 1825 BINTA [facility] PATIENT NAME: MEHRDAD MINOR [address] [facility] [address] MEDICAL REC #: [id number] [place] [address] ADMIT DATE: DISCHARGE DATE: CARDIAC CATH ATTENDING PHY: Nathan Abrams MD CBC Collected: 07/09/2017 Status: F Source: [facility] 12:13 PM [facility] REPOSITORY TYPE CODE TESTS RESULT OUT OF REFERENCE UNITS RANGE LAB WBC(LOINC) 4.60-10.80 10 3/mcL WBC 7.80 LAB RBCCT(LOINC 4.04-6.13 10 6/mcL ) RBC 4.36 LAB HGB(LOINC) 14.0-18.0 G/dL Hgb 14.6 LAB HCT(LOINC) 42.0-52.0 % Hct 43.0 LAB MCV(LOINC) 80.0-94.0 fL High MCV 98.8 LAB MCH(LOINC) 27.0-31.2 pg High MCH 33.5 LAB MCHC(LOINC) 31.8-35.4 G/dL MCHC 33.9 LAB RDW(LOINC) 11.5-14.5 % RDW 13.6 LAB PLT(LOINC) 130-400 10 3/mcL Platelet 168 LAB MPV(LOINC) 7.4-10.4 fL MPV 9.5 Performed By: #### CBC, ADIFF, ANEU, PRO, BMP, GFR #### [place] [address] .AUTO DIFF Collected: 07/09/2017 Status: F Source: [facility] 12:13 PM [facility] REPOSITORY TYPE CODE TESTS RESULT OUT OF REFERENCE UNITS RANGE LAB IZABELLA(LOINC) 37.0-80.0 % Neutrophil % 57.7 LAB LYM(LOINC) 10.0-50.0 % Lymphocyte % 30.2 LAB MON(LOINC) 1.7-13.0 % Monocyte % 8.4 LAB EO(LOINC) 0.0-7.0 % Eosinophil % 3.1 LAB BAS(LOINC) 0.0-2.5 % Basophil % 0.6 LAB ABLYM(LOIN 0.77-3.85 10 3/mcL C) Lymphocyte, 2.30 Absolute LAB PAO(LOINC 0.15-1.00 10 3/mcL ) Monocyte, 0.60 Absolute LAB AEOS(LOINC 0.00-0.40 10 3/mcL ) Eosinophil, 0.20 Absolute LAB ABAS(LOINC 0.00-0.19 10 3/mcL ) Basophil, 0.00 Absolute Performed By: #### CBC, ADIFF, ANEU, PRO, BMP, GFR #### [address] [address] .NEUABS Collected: 07/09/2017 Status: F Source: [facility] 12:13 PM [facility] REPOSITORY TYPE CODE TESTS RESULT OUT OF REFERENCE UNITS RANGE LAB ANEU(LOINC) 2.85-6.16 10 3/mcL Neutrophil, 4.50 Absolute Performed By: #### CBC, ADIFF, ANEU, PRO, BMP, GFR #### [address] [address] PRO Collected: 07/09/2017 Status: F Source: [facility] 12:13 [facility] REPOSITORY TYPE CODE TESTS RESULT OUT OF REFERENCE UNITS RANGE LAB PT(LOINC) 9.8-13.5 seconds Protime 12.6 LAB INR(LOINC) 0.9-1.2 ratio PT International 1.2 Ratio Result Comment: Standard Dose 2.0 - 3.0 High Dose 2.5 - 3.5 The recommended therapeutic range for oral anticoagulant therapy is: LOW RISK: Prophylaxis of venous thrombosis INR: 2.0 - 3.0 Treatment of pulmonary embolism 2.0 - 3.0 Prevention of systemic embolism 2.0 - 3.0 HIGH RISK: Mechanical prosthetic valves 2.5 - 3.5 Performed By: #### CBC, ADIFF, ANEU, PRO, BMP, GFR #### [address] [address] BMP Collected: 07/09/2017 Status: F Source: [facility] 12:13 PM [facility] REPOSITORY TYPE CODE TESTS RESULT OUT OF REFERENCE UNITS RANGE LAB 1547-9 83-110 mg/dL GLUCOSE High 120 LAB NA(LOINC) 136-146 mEq/L Low Sodium Level 134 LAB K(LOINC) 3.5-5.1 mEq/L Potassium Level 4.6 LAB CL(LOINC) 98-107 mEq/L Low Chloride 97 LAB CO2(LOINC) 23-31 mEq/L CO2 25 LAB EBAL(LOINC mEq/L ) Electrolyte Balance 12.0 LAB BUN(LOINC) 7.0-18.0 mg/dL BUN 15.2 LAB CRE(LOINC) 0.6-1.2 mg/dL Creatinine Lvl (s) 1.2 LAB BC(LOINC) 7-27 ratio BUN/Creatinine 13 Ratio LAB CA(LOINC) 8.4-10.2 mg/dL Calcium Lvl 8.9 Performed By: #### CBC, ADIFF, ANEU, PRO, BMP, GFR #### [place] [address] [place], [place] [address] .GFR Collected: 07/09/2017 Status: F Source: [email or web address] 12:13 PM [facility] REPOSITORY TYPE CODE TESTS RESULT OUT OF REFERENCE UNITS RANGE LAB GFRAA(LOINC ml/min/1.73 ) sqm GFR 68 Moroccan Result Comment: GFR Population mean for , Non- Americans Ages 20-29 = 116 mL/min/1.73 sq.m. Ages 30-39 = 107 mL/min/1.73 sq.m. Ages 40-49 = 99 mL/min/1.73 sq.m. Ages 50-59 = 93 mL/min/1.73 sq.m. Ages 60-69 = 85 mL/min/1.73 sq.m. Ages 70+ = 75 mL/min/1.73 sq.m. Chronic Kidney Disease: Less than 60 mL/min/1.73 square meters End Stage Renal Disease: Less than 15 mL/min/1.73 square meters LAB GFRNO(LOINC) ml/min/1.73sqm GFR Non- 56 Result Comment: GFR Population mean for , Non- Americans Ages 20-29 = 116 mL/min/1.73 sq.m. Ages 30-39 = 107 mL/min/1.73 sq.m. Ages 40-49 = 99 mL/min/1.73 sq.m. Ages 50-59 = 93 mL/min/1.73 sq.m. Ages 60-69 = 85 mL/min/1.73 sq.m. Ages 70+ = 75 mL/min/1.73 sq.m. Chronic Kidney Disease: Less than 60 mL/min/1.73 square meters End Stage Renal Disease: Less than 15 mL/min/1.73 square meters Performed By: #### CBC, ADIFF, ANEU, PRO, BMP, GFR #### [facility] [address] [place], [place] [address] NM MYOCARDIAL SPECT Observed: 07/02/2017 Status: F Source: [facility] STRESS/REST 8:30 AM [facility] REPOSITORY ORIGINAL NM MYOCARDIAL SPECT STRESS/REST CLINICAL STATEMENT: CHEST PAIN TECHNIQUE: Lexiscan dose:0.4 mg Radiopharmaceutical (stress): Tc-99m Sestamibi Dose:10.7 mCi Radiopharmaceutical (rest): Tc-99m Sestamibi Dose:30 mCi SPECT acquisition and processing Reconstruction and reorientation of SPECT images into short axis, vertical and horizontal long axis planes Quantitative LVEF assessment COMPARISON:None REPORT:Left ventricle appears normal in size on both stress and rest images. There is small area of mild ischemia in the distal anteroseptal and apical region worse on stress than rest images. Rest of t he myocardium has homogeneous radiotracer uptake on both stress and rest images. Gated SPECT imaging reveal normal wall motion and normal end- systolic brightening and thickening of all myocardial segments. Calculated LVEF 63% and left ventricle end-diastolic volume 88 mL. IMPRESSION: 1. Small area of mild ischemia in the distal anteroseptal and apical region. Soft tissue/breast attenuation artifact is also a possibility. 2. No evidence of prior myocardial infarction. 3. Normal wall motion and normal left ventricle systolic function, LVEF 63%. 4. No prior study available for comparison. Interpreted By: Adriel Alarcon Preliminary Report By: Adriel Alarcon Electronically Signed By: Adriel Alarcon Dictated Date: 07/02/2017 11:35:59 AM Prelim Date: 07/02/2017 11:35:59 AM Sign Date: 07/02/2017 11:41:[address] THORAX W/O Observed: 06/18/2017 Status: F Source: [facility]UDAISM CONTRAST 10:35 AM [facility] REPOSITORY Exam Date/Time: 06/18/2017 10:46 EST Reason for Exam: CHRONIC COUGH Report CT CHEST WITHOUT CONTRAST CLINICAL STATEMENT: Cough. COMPARISON: None. TECHNIQUE: CT examination of the chest?without IV contrast. Coronal and sagittal reformations were performed. ? Dose reduction techniques were achieved by using automated exposure control and/or adjustment of mA and/or kV according to patient size and/or use of iterative reconstruction technique. FINDINGS: There is honeycombing at both lung bases, more diffusely on the right side. There are coarse fibrotic strands, in the upper lobes bilaterally with architectural distortion and bronchiectasis. No cysts are seen. There is more involvement, in the subpleural areas bilaterally with more severe involvement in the lower one third of the lungs. There are no centrilobular or subpleural nodules. Architectural distortion with bronchial dilatation is also present in the lower lobes. Note is made of a small hiatal hernia. Calcification of the LAD is present with thick plaques in the proximal portion. Minimal calcification is seen in the circumflex coronary artery. No pericardial effusion is present. There is no pleural effusion. No hilar or mediastinal lymphadenopathy is seen. The trachea lumen is distended. IMPRESSION: Findings consistent with interstitial pulmonary fibrosis/UIP. Architectural distortion is present, involving the upper lobes and lower lobes with bronchiectasis. No parenchymal nodules. FINAL REPORT Dictated: 06/18/2017 4:54 pm Charles Bassett MD Signed (Electronic Signature): 06/18/2017 4:54 pm Signed by: Charles Bassett MD Technologist: [facility] ALLERGIES DATE TYPE / CODE NAME / CODE REACTION SEVERITY SOURCE 08/27/2013 Drug alfuzosin Pain in joints Unknown [facility]416 HCl/[id number]([facility] 752885(SNOM XNORM) Repository ED CT) 08/27/2013 Drug Penicillins/F001 Rash Unknown [facility]416 953608(RXNORM) [facility] 581717(SNOM Repository ED CT) 08/27/2013 Drug codeine/[id number] Rash Unknown [facility]416 50(RXNORM) Hospital 829792(SNOM Repository ED CT) 08/27/2013 Drug doxazosin/A80718 Rash Unknown [facility]416 4493(RXNORM) Hospital 344574(SNOM Repository ED CT) 08/27/2013 Drug silodosin/O44599 Other Unknown [facility] All[facility]/416 2969(RXNORM) [facility] 639544(SNOM Repository ED CT) ENCOUNTERS ENCOUNTERS ADMIT/DISCHARGE ACCOUNT NUMBER ADMITTING ENCOUNTER LOCATION SOURCE CLASS 05/26/2018 [id number] Ambulatory [facility] ding:MTLAB Repository 03/03/2018 [id number] Ambulatory [facility] ding:LAB Repository 01/13/2018 [id number] Ambulatory [address] [place] [address] Repository 12/02/2017 [id number] Ambulatory [facility] ding:LAB Repository 11/26/2017/11/27/19 [id number] Abas, Ambulatory [address] ding:[facility] Repository 11/26/2017 [id number] Ambulatory [address] [place] [address] Repository 10/25/2017 [id number] Ambulatory [facility]: [facility] Repository 10/24/2017 [id number] Ambulatory [facility] ding:PSN Repository 10/13/2017/10/16/19 [id number] Ambulatory [address] ding:[place] Repository 10/07/2017 [id number] Ambulatory [address] [place] [address] Repository 10/06/2017 [id number] Ambulatory [facility] ding:LAB Repository 09/26/2017/09/28/19 [id number] Ambulatory [facility] ding:[place] Repository 08/27/2017/08/27/19 [id number] Ambulatory [address] ding:[place] Repository 08/11/2017 [id number] Ambulatory [facility] ding:LAB Repository 07/30/2017/07/30/19 [id number] Ambulatory [facility] ding:[place] Repository 07/15/2017 [id number] Inpatient [facility] Repository ng:H.SD 07/09/2017/07/09/19 [id number] Ambulatory [address] ding:[facility] Repository 07/08/2017 [id number] Ambulatory [address] [place] [address] Repository 07/02/2017/07/02/19 [id number] Ambulatory [address] ding:[facility] Repository 06/18/2017/06/18/[id number] ding:[facility] Repository PAYERS PAYERS ENCOUNTER GUARANTOR PAYER SUBSCRIBER SOURCE 05/26/2018 Mehrdad L Primary Mehrdad L [facility] [id number] [facility] RDAPPLE MEDICAREPolicy [id number] Number: Repository [address]Jkl: 330 [id number] () Date:4154-97-55WN [address] [place] [address]SO: 05/26/2018 Secondary NOT GIVENUNK [facility] Insurance:SELF PAY [facility] Number: Effective Repository Date:2018-05-26 03/03/2018 Mehrdad L Primary Mehrdad L Maria Del Carmen [id number] Insurance[facility] Community [address] MEDICAREPolicy [id number] Number: Repository [address]Ojr: 330 [id number] () Date:9997-49-51HF [address] [place] [address]OR: 03/03/2018 Secondary NOT GIVENUNK Maria Del Carmen Insurance:SELF PAY [facility] Number: Effective Repository Date:2018-03-03 01/13/2018 MEHRDAD Primary MEHRDAD [facility]: [facility] MedicarePolicy [id number] Repository [facility] Number: [address] [place], [place] [id number] [facility], [address]Did: (330) Date:Plan [place] [id number]: () Name:Health [address], [place] () [id number]: 12/02/2017 Mehrdad L Primary Mehrdad L Maria Del Carmen [id number] Insurance:[facility]: [facility] [address] MEDICAREPolicy [id number] Number: Repository [address]Gmx: (053) [id number] () Date:4910-06-39JR [address] [place] [address]VE: 12/02/2017 Secondary NOT GIVENUNK Maria Del Carmen Insurance:SELF PAY [facility] Number: Effective Repository Date:2017-12-02 11/26/2017 MEHRDAD L Primary MEHRDAD [facility]: [facility] Number: [id number] System [address] Effective 0 [place], [place] Date:2017-10-30 - RDADDISON, [id number]: [id number] [place] [id number]: Name:CD:[id number] [address]OX () [address] [place] [address] ()Tel: [phone]: () [phone] 11/26/2017 MEHRDAD [facility]: [facility] MedicarePolicy [id number] Repository [address] Number: [address] [place], [place] [id number] RDADDISON, [id number]: Date:[facility] [id number]: Name:HealthP [address] Box (HP) [address], [place] () [id number]: 10/25/2017 Mehrdad L Primary Mehrdad [id number] Insurance:[facility]: [facility] [address] MEDICAREPolicy [id number] [place] Number: Repository [address]Qmr: [phone]) [id number] () Date:9333-12-29JO [address] [place] [address]FF: 10/25/2017 Secondary NOT GIVENUNK Maria Del Carmen Insurance:SELF PAY [facility] Number: Effective Repository Date:2017-10-25 10/24/2017 Mehrdad L Primary Mehrdad L Lamar [id number] Insurance:[facility]: [facility] RdApple MEDICAREPolicy [id number] [place] Number: Repository [address]Dzm: 330 [id number] () Date:3540-91-82FZ [address] [place] [address]HE: 10/24/2017 Secondary NOT GIVENUNK Maria Del Carmen Insurance:SELF PAY [facility] Number: Effective Repository Date:2017-10-10 10/13/2017 Mehrdad L Primary Mehrdad L Maria Del Carmen [id number] Insurance:[facility]: Community [address] MEDICAREPolicy [id number] [place] Number: Repository [address]Fzx: 330 [id number] () Date:5495-52-43NG [address] [place] [address]WU: 10/13/2017 Secondary NOT GIVENUNK Lamar Insurance:SELF PAY [facility] Number: Effective Repository Date:2017-09-28 10/07/2017 MEHRDAD Primary [facility]AD [facility]: [facility]: [facility] MedicarePolicy [id number] Repository [facility] RDAPP Number: 0 [place], [place] [id number] [facility], [address]Uoj: (330) Date:Plan [place] [address]Dvg: () Name:Health [address] [place] [address] () [id number]: 10/06/2017 Mehrdad L Primary Mehrdad L Lamar [id number] [facility] WaltersDOB: [facility] Cal[place] MEDICAREPolicy [id number] Number: Repository [address]Rcq: (330) [id number] (HP) Date:[id number] [address] [facility], [place] [address]DP: 10/06/2017 Secondary NOT GIVENUNK Lamar Insurance:SELF PAY [facility] Number: Effective Repository Date:2017-10-06 09/26/2017 Mehrdad L Primary Mehrdad L Maria Del Carmen [id number] Insurance[facility] WaltersDOB: [facility] [address] MEDICAREPolicy [id number] [place] Number: Repository [id number]: (330) [id number] (HP) Date:[id number] [address] [place] [address]XB: 09/26/2017 Secondary NOT GIVENUNK Lamar Insurance:SELF PAY [facility] Number: Effective Repository Date:2017-08-28 08/27/2017 Mehrdad L Primary Mehrdad L Lamar [id number] Insurance[facility] WaltersDOB[facility] [address] MEDICAREPolicy [id number] [place] Number: Repository [id number]: [id number] (HP) Date:[id number] [address] [place] [address]AE: 08/27/2017 Secondary NOT GIVENUNK Maria Del Carmen Insurance:SELF PAY [facility] Number: Effective Repository Date:2017-07-31 08/11/2017 Mehrdad L Primary Mehrdad L Lamar [id number] Insurance[facility] WaltersDOB: [facility]jorie[facility] [address] MEDICAREPolicy [id number] [place] Number: Repository [address]Ovm: (330 [id number] (HP) Date:[id number] [address] [place] [address]ZN: 08/11/2017 Secondary NOT GIVENUNK Lamar Insurance:SELF PAY [facility] Number: Effective Repository Date:2017-08-11 07/30/2017 Mehrdad L Primary Mehrdad [id number] [address] MEDICAREPolicy [id number] [place] Number: Repository [id number]: (330 [id number] () Date:7223-04-18MM [address] [place] [address]45ZY: 07/30/2017 Secondary NOT GIVENUNK Maria Del Carmen Insurance:SELF PAY [facility] Number: Effective Repository Date:2017-07-17 07/15/2017 MEHRDAD L Primary [facility]AD [id number] Insurance:[facility] Z[address]ERCHER RDAPPLE MEDICARE HMOPolicy Repository [place] Number: [address]Xyx: (330 [id number] () Date:[id number] [address] [address]OZ: 07/09/2017 [facility]: [facility] MEDICARE HMOPolicy [id number] Repository [address]APPLE Number: 0 [place], [place] [id number] [facility], [address]Slq: (330) Date:2017-07-09 - [place] [address]Nak: () [id number] Name:LUIS MO Mani ()Tel: 000 362[place]vin[place], [place] [address] () [address]FJ: 07/08/2017 [facility]: [facility] MedicarePolicy [id number] Repository [address] Number: 0 [address] [place], [place] [id number] RDAPPLE [place], [address]Bfz: (330) Date:[facility] [address]Etw: (HP) Name:Health [address] [place] (HP) [id number]: 07/02/2017 MEHRDAD L Primary MEHRDAD L [facility]: Insurance:[facility]: [facility] MEDICARE HMOPolicy [id number] Repository [address]APPLE Number: 0 [address] [place], [place] [id number] RDAPPLE [place], [address]Sbf: (330) Date:2017-06-26 - [place] [address]Jbc: (HP) [id number] Name:[address] ()Tel: 000 362Ak[place], [place] [address] (WP) [address]SX: 06/18/2017 MEHRDAD L Primary MEHRDAD L [facility]: Insurance:[facility]: [facility] licy Number: [id number] System [address] Effective 0 [address] Repository [place], [place] Date:2017-06-05 - RDAPPLE [place], [id number]: [id number] [place] [id number]: Name:[id number] (HP) (HP) (WP)
== END ==
PROVIDERS: Family Provider Family Medicine; PCP Family Medicine; Referring Provider Internal Medicine Rheumatology; Visit Provider Internal Medicine Rheumatology
DX: M06.4 Inflammatory polyarthropathy (principal); M33.90 Dermatopolymyositis, unspecified, organ involvement unspecified; K21.0 Gastro-esophageal reflux disease with esophagitis; K76.0 Fatty (change of) liver, not elsewhere classified; M51.87 Other intervertebral disc disorders, lumbosacral region; N40.0 Benign prostatic hyperplasia without lower urinary tract symptoms
CPT/HCPCS: 36415; 80053; 82550; 85025

== ENCOUNTER → 2018-08-21 10:18 | Outpatient (CLI) | payer MEDICARE, SELFPAY ==
[2017-09-28 00:46] VITALS: BMI 28.7
[2018-08-21 12:10] LABS: Absolute Lymphocyte Count 2.02 X10^3/ul (0.83-4.51); Absolute Neutrophil Count 3.9 X10^3/uL (2.0-7.7); Basophil# 0.02 X10^3/uL; Basophil% 0.3 % (0-1); Eosinophil# 0.15 X10^3/uL; Eosinophils% 2.2 % (0-5); Hematocrit 41.4 % (40-54); Hemoglobin 13.8 g/dl (13.0-16.5); Lymphocyte # 2.02 X10^3/ul (4.0); Lymphocyte % 29.8 % (19-41); Mean Corp Hgb Conc 33.3 g/gl (32-36); Mean Corpuscular Hgb 33.4 pg (27.0-32.0); Mean Corpuscular Volume 100.2 fL (80-94); Mean Platelet Vol. 10.9 fl (6.2-12.0); Monocyte# 0.66 X10^3/uL; Monocyte% 9.7 % (0-10); Neutrophil # 3.92 X10^3/uL (2.7-7.7); Neutrophil % 57.9 % (47-70); POSITIVE COUNT NO; POSITIVE DIFFERENTIAL NO; POSITIVE MORPHOLOGY NO; Platelet Count 185 K/mm3 (150-450); RBC Distribution Width CV 13.1 % (11.6-14.6); RBC Distribution Width SD 47.7 fl (35.1-43.9); Red Blood Count 4.13 M/mm3 (4.6-6.2); White Blood Count 6.8 K/mm3 (4.4-11.0)
[2018-08-21 12:26] LABS: AST(SGOT) 28 U/L (15-37); Alanine Aminotransfer ALT/SGPT 24 U/L (16-61); Albumin, Serum 3.7 g/dL (3.2-5.0); Alkaline Phosphatase 70 U/L (45-117); Anion Gap 7 (5-15); BUN 11 mg/dL (7-18); BUN/Creat Ratio 9.2 RATIO (10-20); Calcium,Total 8.8 mg/dL (8.5-10.1); Chloride 99 mmol/L (98-107); EST Glomerular Filtration Rate 62 mL/min (>60); Est Glom Filt Rate - Afr Amer 75 mL/min (>60); Globulin 3.7 g/dL (2.2-4.2); Glucose 95 mg/dL (74-106); Potassium 4.6 mmol/L (3.5-5.1); Protein, Total 7.4 g/dL (6.4-8.2); Sodium Level 132 mmol/L (136-145)
== END ==
PROVIDERS: Family Provider Family Medicine; PCP Family Medicine; Referring Provider Internal Medicine Rheumatology; Visit Provider Internal Medicine Rheumatology
DX: M06.4 Inflammatory polyarthropathy (principal); M33.90 Dermatopolymyositis, unspecified, organ involvement unspecified; K21.0 Gastro-esophageal reflux disease with esophagitis; K76.0 Fatty (change of) liver, not elsewhere classified; M51.87 Other intervertebral disc disorders, lumbosacral region; N40.0 Benign prostatic hyperplasia without lower urinary tract symptoms
CPT/HCPCS: 36415; 80053; 85025

== ENCOUNTER → 2018-10-28 | Outpatient (CLI) | payer MEDICARE, SELFPAY ==
[2017-09-28 00:46] VITALS: BMI 28.7
[2018-10-28 10:30] VITALS: PULSE 100; PULSE 101; PULSE 75; PULSE 76; PULSE 95; PULSE 98; PULSE 99; O2SAT 87; O2SAT 88; O2SAT 90; O2SAT 91; O2SAT 94; O2SAT 95; O2SAT 98
--- NOTE | 2018-10-28 10:33 | CPS ---
Patient wears 2-4 lpm at home during ambulation and exercise. Patient started testing on room air SpO2 94%. By the second minute patient dropped to 87%, placed patient on 2 lpm pulse dose that he wears at home. Patient walked the rest of the test without breaks and dropped to 88% right when testing was finished.
--- NOTE | 2018-10-28 15:04 | PCM.PSN.6M ---
PSN 6 Minute Walk Test - 6 Minute Walk Test 6 Minute Walk Test: 6 Minute Walk Test PSN:6-Minute Walk Test Start: 10/28/18 10:29 Freq: Status: Active Protocol: RESP.6MINW Document 10/28/18 10:30 MIKE (Rec: 10/28/18 10:36 MIKE [id number]) 6 Minute Walk Test Date Performed 10/28/18 Time Performed 10:00 Height 5 ft 9 in Weight: 87.09 kg Weight in Pounds 192.[address]: Dr. Sesay Assistive device used: None Pre-test Oxygen Delivery Method Room Air Pulse Ox (%) 94 Pulse Rate (60-100 beats/min) 76 Dyspnea Sage Scale (0-10) 0.5 Exertion Sage Scale (6-20) 6 1st minute Oxygen Delivery Method Room Air Pulse Ox (%) 95 Pulse Rate (60-100 beats/min) 101 H 2nd minute Oxygen Delivery Method Room Air Pulse Ox (%) 87 Pulse Rate (60-100 beats/min) 99 3rd minute Oxygen Flow Rate (L/min) (L/min) 2 Oxygen Delivery Method Nasal Cannula Pulse Ox (%) 94 Pulse Rate (60-100 beats/min) 95 4th minute Oxygen Flow Rate (L/min) (L/min) 2 Oxygen Delivery Method Nasal Cannula Pulse Ox (%) 91 Pulse Rate (60-100 beats/min) 98 5th minute Oxygen Flow Rate (L/min) (L/min) 2 Oxygen Delivery Method Nasal Cannula Pulse Ox (%) 90 Pulse Rate (60-100 beats/min) 99 6th minute Oxygen Flow Rate (L/min) (L/min) 2 Oxygen Delivery Method Nasal Cannula Pulse Ox (%) 88 Pulse Rate (60-100 beats/min) 100 Dyspnea Sage Scale (0-10) 4 Exertion Sage Scale (6-20) 12 Post-test Oxygen Flow Rate (L/min) (L/min) 2 Oxygen Delivery Method Nasal Cannula Pulse Ox (%) 98 Pulse Rate (60-100 beats/min) 75 Full Laps Walked 18 Partial Lap, Number of Tiles Walked 25 Total Distance Walked (ft) 1087 10/28/18 10:33 Cardiopulmonary Services by Steffanie Gomez Patient wears 2-4 lpm at home during ambulation and exercise. Patient started testing on room air SpO2 94%. By the second minute patient dropped to 87%, placed patient on 2 lpm pulse dose that he wears at home. Patient walked the rest of the test without breaks and dropped to 88% right when testing was finished. Initialized on 10/28/18 10:33 - END OF NOTE - Interpretation Interpretation: The patient was noted to be 94% on room air at rest, but in the second minute of ambulation, desaturated to 87%. Patient was placed on 2 L pulse dose with improvement to 92%, but desaturated to 88% in the final minute. In total, patient traveled 1087 feet over the course of 6 minutes with no assistive devices or breaks. These findings are consistent with a respiratory limitation exercise tolerance. - Recommendations Recommendations: The patient requires no supplemental oxygen at rest, but should be using 3 L pulse dose with any ambulation.
== END | disposition home or self-care (01) ==
LOC: PSN 09:35
PROVIDERS: Family Provider Family Medicine; PCP Family Medicine
DX: R05 Cough (principal)
CPT/HCPCS: 94618

== ENCOUNTER → 2018-10-29 | Outpatient (CLI) | payer MEDICARE, SELFPAY ==
[2017-09-28 00:46] VITALS: BMI 28.7
--- NOTE | 2018-10-29 14:53 | PFTCOMP_ITS ---
COMPLETE PULMONARY FUNCTION TEST INTERPRETATION Brief HPI: Patient is a 78 year old male, currently under the care of Dr. Sesay, who presents to [facility] for complete pulmonary function tests secondary to diagnosis of chronic cough. Respiratory therapist reports good effort and reproducible results. Interpretation: Forced expiration spirometry shows no large airways obstructive ventilatory defect with an FEV1 of 61% predicted. There is no significant bronchodilator response by strict ATS criteria. Spirograms are of poor quality and plateau normally, but have exhalation only between 1-1/2 and 4-1/2 seconds. The respiratory flow volume loop shows a normal pattern. Lung volumes by body plethysmography show a decreased total lung capacity at 2.93 L, 48% predicted. All other lung volumes are reduced symmetrically. Diffusion capacity by carbon monoxide is normal at 76% predicted. The airway resistance is normal. Compared to previous pulmonary function tests from 10/24/2017, there is been a significant reduction in total lung capacity by 19%. Impression: Severe restrictive ventilatory defect with relatively preserved diffusion capacity in a pattern consistent with musculoskeletal limitation.
== END | disposition home or self-care (01) ==
LOC: PSN 08:34
PROVIDERS: Family Provider Family Medicine; PCP Family Medicine
DX: R05 Cough (principal)
CPT/HCPCS: 94060; 94726; 94729

== ENCOUNTER → 2018-11-17 | Outpatient (CLI) | payer MEDICARE, SELFPAY ==
[2017-09-28 00:46] VITALS: BMI 28.7
[2018-11-17 12:23] LABS: Absolute Lymphocyte Count 1.64 X10^3/ul (0.83-4.51); Basophil# 0.02 X10^3/uL; Basophil% 0.3 % (0-1); Eosinophil# 0.07 X10^3/uL; Eosinophils% 1.1 % (0-5); Hematocrit 42.3 % (40-54); Hemoglobin 14.5 g/dl (13.0-16.5); Lymphocyte # 1.64 X10^3/ul (4.0); Lymphocyte % 25.9 % (19-41); Mean Corp Hgb Conc 34.3 g/gl (32-36); Mean Corpuscular Hgb 33.2 pg (27.0-32.0); Mean Corpuscular Volume 96.8 fL (80-94); Mean Platelet Vol. 10.8 fl (6.2-12.0); Monocyte# 0.63 X10^3/uL; Monocyte% 9.9 % (0-10); Neutrophil # 3.97 X10^3/uL (2.7-7.7); Neutrophil % 62.6 % (47-70); Platelet Count 175 K/mm3 (150-450); RBC Distribution Width CV 12.2 % (11.6-14.6); RBC Distribution Width SD 42.1 fl (35.1-43.9); Red Blood Count 4.37 M/mm3 (4.6-6.2); White Blood Count 6.3 K/mm3 (4.4-11.0)
[2018-11-17 12:24] LABS: POSITIVE COUNT NO; POSITIVE DIFFERENTIAL NO; POSITIVE MORPHOLOGY NO
[2018-11-17 12:57] LABS: ALB/GLOB Ratio 0.9 RATIO (0.9-2.4); AST(SGOT) 30 U/L (15-37); Alanine Aminotransfer ALT/SGPT 27 U/L (16-61); Albumin, Serum 3.6 g/dL (3.2-5.0); Alkaline Phosphatase 79 U/L (45-117); Anion Gap 7 (5-15); BUN 15 mg/dL (7-18); BUN/Creat Ratio 12.9 RATIO (10-20); Chloride 98 mmol/L (98-107); Creatinine, Serum 1.16 mg/dL (0.70-1.30); EST Glomerular Filtration Rate 65 mL/min (>60); Est Glom Filt Rate - Afr Amer 78 mL/min (>60); Globulin 4.2 g/dL (2.2-4.2); Glucose 91 mg/dL (74-106); Potassium 3.9 mmol/L (3.5-5.1); Protein, Total 7.8 g/dL (6.4-8.2); Sodium Level 134 mmol/L (136-145)
== END | disposition home or self-care (01) ==
PROVIDERS: Family Provider Family Medicine; PCP Family Medicine; Referring Provider Internal Medicine Rheumatology; Visit Provider Internal Medicine Rheumatology
DX: M06.4 Inflammatory polyarthropathy (principal); M33.90 Dermatopolymyositis, unspecified, organ involvement unspecified; K21.0 Gastro-esophageal reflux disease with esophagitis; K76.0 Fatty (change of) liver, not elsewhere classified; M51.87 Other intervertebral disc disorders, lumbosacral region; N40.0 Benign prostatic hyperplasia without lower urinary tract symptoms
CPT/HCPCS: 36415; 80053; 85025

== ENCOUNTER → 2018-12-03 | Outpatient (CLI) | payer MEDICARE, SELFPAY ==
--- NOTE | 2018-12-03 13:22 | CT_ITS ---
STUDY: CT FACIAL BONES WITHOUT CONTRAST REASON FOR EXAM: Male, 78 years old. Sinusitis RADIATION DOSAGE (If Supplied By Facility): CTDIvol = ( 33.06 ) mGy, DLP = ( 738.81 ) mGycm TECHNIQUE: The patient was scanned in a multi detector CT scanner. Sagittal and coronal images were reconstructed. Individualized dose optimization techniques were used for this CT. COMPARISON: None. FINDINGS: Normal soft tissue structures. Normal orbital hunter and orbital contents. Normal nasal bones and anterior nasal spine. Normal facial bones. There is no demonstrated fracture. Normal visualized paranasal sinuses. CT/Sinus/Facial Bone IMPRESSION: Normal unenhanced CT of the facial bones. Electronically Signed: Robin Patel MD at 14:52 EDT Tel , Service support ,
== END | disposition home or self-care (01) ==
LOC: CT 13:19
PROVIDERS: Family Provider Family Medicine; PCP Family Medicine; Referring Provider Otolaryngology; Visit Provider Otolaryngology
DX: J32.9 Chronic sinusitis, unspecified (principal)
CPT/HCPCS: 70486

== ENCOUNTER → 2018-12-29 | Outpatient (CLI) | payer MEDICARE, SELFPAY ==
--- NOTE | 2018-12-29 08:53 | PCM.PR.HP ---
History of Present Illness Arrival date:: 12/29/18 Arrival time:: 08:53 Date of Referral:: 12/23/18 Date of Evaluation: 12/29/18 Referring Physician: DR. SUHA DEWITT Primary Diagnosis: IDIOPATHIC PULMONARY FIBROSIS History of Present Illness: PATIENT IS A 78 YR MALE WITH INTERSTITIAL LUNG DISEASE. HE PREVIOUSLY PARTICIPATED IN PULMONARY REHAB IN THE PAST, AND RECENTLY HAS EXPERIENCED A DECLINE IN HIS ADL's ASSOCIATED WITH HIS CURRENT PROGRESSION OF HIS DISEASE AND [facility] Breathless Scale: When is the patient short of breath? Y/N Grade: Description of Breathlessness: 0 I only get breathless with strenuous exercise. 1 I get short of breath when hurrying on level ground or walking up a slight hill. 2 On level ground, I walk slower than people of the same age because of breathless, or have to stop for breath when walking at my own pace. 3 I stop for breath after walking 100 yards or after a few minutes on level ground. 4 I am too breathless to leave the house or I am breathless when dressing. Respiratory Problems: Yes: Limited Range of Motion, Fatigue, Dyspnea with Activity, Dyspnea Lying Down Flat No: Able to Speak in Full Sentences Home Medications: Home Medications Fish Oil/Dha/Epa [Fish Oil 1,200 mg Fish Oil] 1,200 mg PO BID 08/27/13 Zinc 50 mg PO DAILY 08/27/13 Ascorbic Acid [Vitamin C] 1,000 mg PO 07/18/17 B12/Levomefolate Calcium/B-6 [Foltx Tablet] 1 each PO 07/18/17 Famotidine [Pepcid] 20 mg PO 07/18/17 Lactobacillus Combination No.8 [Adult Probiotic] 1 each PO 07/18/17 Oxygen, Home [Home Oxygen] 2 lpm NASAL PRN 07/18/17 Allergies/Adverse Reactions: Allergies alfuzosin HCl [From Uroxatral] Allergy (Verified 08/27/13 08:34) Pain in joints codeine Allergy (Verified 08/27/13 08:34) Rash doxazosin Allergy (Verified 08/27/13 08:34) Rash Penicillins Allergy (Verified 08/27/13 08:34) Rash silodosin [From Rapaflo] Allergy (Verified 08/27/13 08:35) Other - Secretions Thick:: No Thin:: No A.T.C.: Yes Hx of Sleep Apnea: No Do you snore loudly (louder than talking or can be heard through closed doors)?: No Do you often feel tired/ fatigued/ sleepy during daytime?: Yes Has anyone observed you stop breathing during sleep?: No History of Hypertension (for STOP score): Yes STOP Results: Positive Medical Utilization Do you use a peak flow meter at home?: No Do you use a spacer device with your inhalers?: No Number of hospital visits in the last year?: 0 Number of emergency room visits in the last year?: 0 Do you see your physician on a regular schedule?: Yes Advanced Directives - Advanced Directives Power of Professor Of Early Childhood Education: Yes Living Will: Yes Advance Directives Information Provided: No Advance Directives on File: No DNR Order?:: Yes - MOLST See MOLST form: No Past Medical History Medical History: Past Medical History (Last Updated 12/29/18 @ 09:19 by Lionel Dash, SALVAGE INSPECTOR, UNIVERSITY EXTENSION SPECIALIST, BS) 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 Recreational Activities: I am able to engage in a few activities Functioning ADL/IADL - Current Ability Current Ability: Independent Self-Care (e.g.,grooming, dressing, & bathing), Independent Ambulation, Independent Transfer, Independent Household tasks (e.g., light meal prep, laundry, shopping) - Pt Functioning Prior to Problem Prior Functioning: Self-Care (e.g.,grooming, dressing, & bathing): Independent, Ambulation: Independent, Transfer: Independent, Household tasks (e.g., light meal prep, laundry, shopping): Independent Social Environment - Status Marital Status: - Current Living Arrangements Living Environment:: Spouse - Children How many children do you have?: 2 Do any of your children live nearby?: Yes - about an hour away. - Safety Do you feel safe in your surroundings?: Yes - Assistance Do you need any assistance at home?: none Review of Systems Review of Systems: Right click = Denies (Slash). Left click = Reports ([place]) Respiratory: Reports: Cough - persistent, productive clear cough., SOB upon Exertion, Sputum production - clear white, Wheezing, Appetite, Normal, Dizziness/Lightheadedness - a little bit of lightheadedness lately., Fatigue. Denies: SOB at Rest Is Patient Pain Free?: Yes Pain Location: none Pain Level: 0/10 Risk Factor Assessment - Chief Complaint Chief Complaint: 78 yr old male with idiopathic pulmonary fibrosis and interstitial lung disease [facility] - Vital Signs Temperature: 98.7 F Pulse Rate: 71 Pulse Rhythm: Regular Respiratory Rate: 16 Pulse Ox: 98 - 3 to 4 liters depending on activity level Blood Pressure: 134/72 - Diabetes Nutrition Referral for Diabetes: No - Obesity Height: 5 ft 10 in Weight:: 192 lb Weight in Pounds: 192.0 lbs Weight Source: Estimated by Patient Body Mass Index (BMI): 27.5 Nutritional Referral for Obesity: No - Physical Activity Physical Inactivity: Recreational activity - Risk Stratification Risk Guidelines: Lowest Risk: Risk Factor for Smoking, Risk Factor for Dyslipidemia, Risk Factor for Diabetes, Risk Factor for Obesity, Risk Factor for Depression, Moderate Risk: Risk Factor for Hypertension, Risk Factor for Sedentary Lifestyle - For Smoking Smoking Risk Guidelines: Smoking Low Risk: None or quit greater than 6 months ago. Smoking Moderate Risk: Smoker or quit 6 months or less ago. Smoking High Risk: Smoker - For Dyslipidemia Dyslipidemia Risk Guidelines: Low Risk: Moderate Risk: High Risk: 15-25% fat 25.1-29% fat >/= 30% fat. <7% sat fat 7-9% sat fat >9% sat fat. <150 mg chol 150-299 mg chol >/= 300 mg chol. LDL <100 LDL 100-129 LDL >/= 130. Chol/HDL ratio <5.0 Chol/HDL ratio 5.0-6.0 Chol/HDL ratio >6.0. Triglycerides <100 Triglycerides 100-149 Triglycerides >/= 150 - For Diabetes Mellitus Diabetes Risk Guidelines: Diabetes Low Risk: HgA1c <6.5% and/or FBG <120. Diabetes Moderate Risk: HgA1c 6.6-7.9% and/or FBG 120-180. Diabetes High Risk: HgA1c >/= 8% and/or FBG >180 - For Obesity/Overweight Obesity/Overweight Risk Guidelines: Obesity Low Risk: BMI <25.0. Obesity Moderate Risk: BMI 25-29.9. Obesity High Risk: BMI >/= 30.0 - For Hypertension Hypertension Risk Guidelines: Hypertension Low Risk: Systolic <120 and Diastolic <80. Hypertension Moderate Risk: Systolic 120-139 and Diastolic 80-89. Hypertension High Risk: Systolic >/= 140 and Diastolic >/= 90 - For Sedentary Lifestyle Sedentary Lifestyle Risk Guidelines: Sedentary Lifestyle Low Risk: >/= 1,500 kcal/week. Sedentary Lifestyle Moderate Risk: 700-1,499 kcal/week. Sedentary Lifestyle High Risk: < 700 kcal/week - For Depression Depression Risk Guidelines: Depression Low Risk: Not clinically depressed. Depression Moderate Risk: Mildly depressed. Depression High Risk: Clinically depressed Motivation - Motivation to Participate On a scale of 1 to 10, how prepared are you to commit to attending program?: 10 What do you see as barriers to successfully being able to complete the program?: limitations of abilty to use Airdyne bike What do you see as the benefits of succesfully completing the program? In other words, what do you hope to get out of participating in the program?: hemorroids, BPH, hernia Are there issues you are dealing with that will interfere with completing the program?: hernia belt Do you have a spouse or signficant other, family or friends who will help support you to complete the program?: yes Diagnostic Data Review - 6 Minute Walk Test 6 Minute Walk Test: 1087 ft desat to 87% - Pulmonary Function Test FEV1:: 1.71 FVC:: 1.90 FEV1/FVC%:: 90
[2018-12-29 09:27] VITALS: BP 134/72; PULSE 71; RESP 16; TEMP 37.1; O2SAT 98; BMI 27.5
--- NOTE | 2018-12-29 10:51 | PCM.PR.TP ---
General Information - General Information Admitting Diagnosis: INTERSTITIAL LUNG DISEASE - IDIOPATHIC PULMONARY FIBROSIS Oxygen: 2-4 LITERS - Education/Goals Barriers to Learning: Hearing Impairment, Vision Impairment Individual Counseling: Initial Assessment: Dyspnea control techniques at rest, activity, and ADLs, Exacerbation prevention & management, O2, Rx, system, safety, ADL management and pacing, Home exercise plan & guidelines Patient Goals: Breathe better: Initial Assessment, Increase endurance/stamina: Initial Assessment Exercise - Initial Assessment - Visit Date of Eval: 12/29/18 - Problem/Goals Problems: No regular exercise Goals:: [place]: 2-3/wk - Physician Prescribed Exercise Modalities: Treadmill, NuStep, SciFit Frequency (days/week): 3 Duration (Minutes):: 30-45 Intensity: 60-80% age predicted maximum heart rate reserve METs - Progression: 0.5-1.0 MET, RPE 11-14 WEEK: 2.5 Target Heart Rate:: 92-106 - Plan Plan and Plan to Review:: Benefits of exercise, Core components of exercise, How to measure dyspnea level, How to monitor dyspnea level, Exercise intensity, Exercise safety guideline, Home exercise guidelines, Sage: 3-4/-13 Disease Management - Initial - Problems/Goals-Hypoxemia Hypoxemia Problems:: Hypoxemia Hypoxemia Goals:: Hypoxemia managed, Port system, Using O2 as Rx's safely - Problems/Goals-Bronchial Hygiene Bronchial Hygiene Problems:: Ineffective secretion clearance, Respiratory infection Prevention/Management Bronchial Hygiene Goals:: Pt demonstrates effective cough, effective secretion clearance., Pt describes signs and symptoms of infection. - Initial Assessment SpO2:: 96 Port O2:: 4 Does pt report taking home meds as prescribed?: Yes Patient Reports:: Prod cough daily <1 Tbsp - Plans Hypoxemia Plan:: Monitor SpO2 rest & with exercise, Train appropriate O2 use at rest, Train appropriate O2 use with exercise, Train O2 safety & systems Reviewed prescribed medications:: Purpose, Schedule, Side effects, Importance of compliance Bronchial Hygiene Plan: Controlled cough, Vibratory PEP device, Hydration, Hand hygiene, When to call MD, Signs/symptoms to report:, Influenza/Pneumovax vaccines, Cleaning of respiratory equipment Psychosocial - Initial Assess - Problems/Goals Problems: Anxiety, Impaired Q.O.L. Psychosocial Goals: Improved Q.O.L. - Psychosocial Test Depression:: Anxiety, Impaired QOL Referred to MD for counseling:: No - Plan Reviewed screening results: Yes Instructions given regarding:: Benefits of exercise, Relaxation techniques, Training in coping strategies Tobacco - Initial Assessment - Program Goals Tobacco Program Goals: Complete smoking cessation. Attend education classes. Improve Knowledge Test score - Stage of Change Stages of Change:: Action - Learning Barriers Learning Barriers: Hearing, Vision, Ready to Learn - Family Support Do you have family support?: Yes - Tobacco Use Tobacco Use: Non-smoker Do you use smokeless tobacco?: No - Intervention Smoking Cessation Referral:: No Individual Education/Counseling:: No Education Schedule Given:: Yes - Education Gave Education Materials For:: Pulmonary Disease, Risk Factors, Breathing Techniques, Medical Compliance, Pulmonary A&P, Exacerbation Signs & Symptoms, Stress & Relaxation Nutrition/Wt Mgmt - Initial - Weight Management Knowledge Deficit Management of:: Role of exercise in weight control Admit Height:: 5 ft 10 in Admit Weight:: 198 lb Admit BMI:: 28.4 - Diabetes Diabetes:: No Insulin: No Do you monitor your blood sugar at home?: No - Intervention Referral to dietitian:: No Referral to Diabetic Clinic:: No Will attend diet classes:: Yes - Plan Nutrition Plan: Yes Nutrition education class:, Yes Weight control education class: Patient Health Questionnaire Initial Assessment 1. Little interest or pleasure in doing things: Several days 2. Feeling down, depressed, or hopeless: Several days 3. Trouble falling or staying asleep, or sleeping too much: Nearly every day 4. Feeling tired or having little energy: More than half the days 5. Poor appetite or overeating: Not at all 6. Feeling bad about yourself -- or that you are a failure or have let yourself or your family down: Several days 7. Trouble concentrating on things, such as reading the newspaper or watching television: Several days 8. Moving or speaking so slowly that other people could have noticed. Or the opposite - being so fidgety or restless that you have been moving around a lot more than usual: More than half the days 9. Thoughts that you would be better off , or of hurting yourself in some way: Not at all How difficult have these problems made it for you to do your work, take care of things at home, or get along with other people?: Somewhat difficult Total Score: 11 COPD Knowledge Test Initial COPD is a lung disease that:: Makes it hard to breathe & gets worse over time In the [place] the term COPD describes 2 main lung conditions:: Emphysema & chronic bronchitis The most common lung irritant that causes COPD is:: Cigarette smoke Common signs and symptoms of COPD include:: An ongoing cough/cough that produces a large amount of mucus, & SOB If you have COPD, what steps can you take?: All of the above Swelling of the ankles is common in COPD:: False Fatigue [tiredness] is common in COPD:: True Wheezing is common in COPD:: True Crushing chest pain is common in COPD:: False Rapid weight loss is common in COPD:: False Breathlessness is a normal response to exercise: True Exercise should be avoided if it makes you short of breath: False All bronchodilators act within 10 minutes: False A spacer device increases the medication to the lungs: True Annual flu vaccine is recommended for pts w/lung disease: True COPD Knowledge Test Total Score:: 15 COPD Assessment Test [CAT] - Questions Never cough = 0, Cough all the time = 5: 4 No phlegm = 0, Chest full of phlegm = 5: 4 No chest tightness = 0, Chest very tight = 5: 1 No breathless w/exertion = 0, Very breathless w/exertion = 5: 5 No limitations w/activity = 0, Very limited w/activity = 5: 3 Confident leaving home = 0, Not at all confident = 5: 1 Sleep soundly = 0, Don't sleep soundly = 5: 3 Lots of energy = 0, No energy at all = 5: 4 Total CAT score:: 25 Self-Efficacy Initial Assessment We would like to know how confident you are in doing certain activities. Please select your confidence level for:: Select your confidence level for the following using the scale 1-10 where 1 is not at all confident and 10 is totally confident. Your score is the average of all 6 responses. Fatigue: How confident are you that you can keep the fatigue caused by your disease from interfering with the things you want to do? Select Number: 3 Physical Discomfort or Pain: How confident are you that you can keep the physical discomfort or pain of your disease from interfering with the things you want to do? Select Number: 4 Emotional Distress: How confident are you that you can keep the emotional distress caused by your disease from interfering with the things you want to do? Select Number: 3 Other Symptoms or Health Problems: How confident are you that you can keep other symptoms or health problems from interfering with the things you want to do? Select Number: 5 Different Tasks and Activities: How confident are you that you can do the different tasks and activities needed to manage your health condition so as to reduce your need to see a doctor? Select Number: 4 Medication: How confident are you that you can do things other than just taking medication to reduce how much your illness affects your everyday life? Select Number: 4 Total Score:: 3 Nutrition Survey - Nutrition Survey Instructions Scoring Instructions: Scoring is as follows: Yes = 1 points. No = 0 point. Patient score that is >/=12 is considered to be at potential nutritional risk and could benefit from a referral to a registered dietitian. - Nutrition Survey Initial Have you lost >10 lbs over the past 2 months without trying?: No Are you following a special diet at home for diabetes, low fat, or low salt?: No Are you interested in meeting with a dietitian for help understanding your diet?: No Do you eat less than 3 meals a day?: No Do you eat fatty meats (wray, sausage, ribs, etc), fried foods, desserts, large amounts of salad dressings, margarine, butter, or cheese most days?: No Do you have food allergies? [Enter types in comment field]: No Do you eat in restaurants more than 3 times a week?: Yes Do you season food with salt, seasoning salt, or garlic salt?: No Do you used canned, boxed, frozen meals, or soups, seasoning packets?: Yes Total Score:: 2
[2018-12-29 10:59] VITALS: O2SAT 96; BMI 28.4
== END | disposition home or self-care (01) ==
PROVIDERS: Family Provider Family Medicine; PCP Family Medicine
DX: M35.8 Other specified systemic involvement of connective tissue (principal)

== ENCOUNTER 2019-01-27 09:30 | Outpatient (RCR) | payer MEDICARE, SELFPAY ==
[2018-12-29 09:27] VITALS: BMI 27.5
== END 2019-01-27 23:59 ==
LOC: PR 09:30
PROVIDERS: Family Provider Family Medicine; PCP Family Medicine
DX: M35.8 Other specified systemic involvement of connective tissue (principal)
CPT/HCPCS: 97150; G0239

== ENCOUNTER → 2019-02-15 | Outpatient (CLI) | payer MEDICARE, SELFPAY ==
[2018-12-29 10:59] VITALS: BMI 28.4
[2019-02-15 11:17] LABS: Absolute Lymphocyte Count 1.83 X10^3/uL (0.83-4.51); Absolute Neutrophil Count 4.3 X10^3/uL (2.0-7.7); Basophil# 0.04 X10^3/uL; Basophil% 0.6 % (0-1); Eosinophil# 0.11 X10^3/uL; Eosinophils% 1.6 % (0-5); Hematocrit 40.8 % (40-54); Hemoglobin 13.5 g/dL (13.0-16.5); Lymphocyte # 1.83 X10^3/ul (4.0); Mean Corp Hgb Conc 33.1 g/dL (32-36); Mean Corpuscular Volume 99.8 fL (80-94); Monocyte# 0.73 X10^3/uL; Monocyte% 10.4 % (0-10); NRBC Flagged by Analyzer 0 % (0-5); Neutrophil # 4.31 X10^3/uL (2.7-7.7); Neutrophil % 61.1 % (47-70); Platelet Count 166 K/mm3 (150-450); RBC Distribution Width CV 12.7 % (11.6-14.6); RBC Distribution Width SD 46.7 fl (35.1-43.9); Red Blood Count 4.09 M/mm3 (4.6-6.2)
[2019-02-15 11:45] LABS: ALB/GLOB Ratio 0.8 RATIO (0.9-2.4); AST(SGOT) 29 U/L (15-37); Alanine Aminotransfer ALT/SGPT 27 U/L (16-61); Albumin, Serum 3.4 g/dL (3.2-5.0); Alkaline Phosphatase 82 U/L (45-117); Anion Gap 5 (5-15); BUN 17 mg/dL (7-18); BUN/Creat Ratio 14.3 RATIO (10-20); Calcium,Total 9.2 mg/dL (8.5-10.1); Chloride 101 mmol/L (98-107); Creatinine, Serum 1.19 mg/dL (0.70-1.30); EST Glomerular Filtration Rate 63 mL/min (>60); Est Glom Filt Rate - Afr Amer 76 mL/min (>60); Globulin 4.1 g/dL (2.2-4.2); Glucose 90 mg/dL (74-106); Potassium 4.3 mmol/L (3.5-5.1); Protein, Total 7.5 g/dL (6.4-8.2); Sodium Level 135 mmol/L (136-145)
== END | disposition home or self-care (01) ==
LOC: LAB.FUTURE 09:52
PROVIDERS: Family Provider Family Medicine; PCP Family Medicine; Referring Provider Internal Medicine Rheumatology; Visit Provider Internal Medicine Rheumatology
DX: M06.4 Inflammatory polyarthropathy (principal); M33.90 Dermatopolymyositis, unspecified, organ involvement unspecified; K21.0 Gastro-esophageal reflux disease with esophagitis; K76.0 Fatty (change of) liver, not elsewhere classified; M51.87 Other intervertebral disc disorders, lumbosacral region; N40.0 Benign prostatic hyperplasia without lower urinary tract symptoms; M35.8 Other specified systemic involvement of connective tissue
CPT/HCPCS: 36415; 80053; 85025; 97150; G0239

== ENCOUNTER 2019-02-26 09:30 | Outpatient (RCR) | payer MEDICARE, SELFPAY ==
[2018-12-29 10:59] VITALS: BMI 28.4
--- NOTE | 2019-01-29 07:41 | PCM.PR.TP ---
Exercise - 30-Day Assessment - Physician Prescribed Exercise Modalities: Treadmill, NuStep, SciFit Frequency (days/week): 3 Duration (Minutes):: 30-45 Intensity: 60-80% age predicted maximum heart rate reserve Aerobic Exercise [30-60 min 3-7x/week]:: Progressing Target heart rate: 92-106 with max HR 109 Sage-14 METs - Progression: 0.5-1.0 MET, RPE 11-14 WEEK: 2.5 - Home Exercise Home Exercise:: No Disease Management - 30-Day - Hypoxemia Reassessment: Demonstrates knowledge of O2 Rx at rest, Demonstrates knowledge of O2 Rx with exercise, Using O2 as prescribed, Uses port O2 as prescribed - Medications Medication list reviewed:: Yes Taking medications 100% of the time:: Met - daisy meets medication compliance Medication reassessment: Yes Pt demonstrates correct technique timing for MDI, Yes Pt demonstrates correct technique timing for DPI, Yes Pt demonstrates correct technique timing for NEB, Yes Pt demonstrates correct technique timing for spacer - Bronchial Hygiene Bronchial Hygiene Plan: Yes Pt demo correct for improved hydration, Yes Pt demo correct for hand hygiene Psychosocial - 30-Day - Assessment Reassessment: Management of stress & depression, Practicing interventions, Geriatric depression screening, Self efficacy score Tobacco - 30-Day Assessment - Program Goals Tobacco Program Goals: Complete smoking cessation. Attend education classes. Improve Knowledge Test score - Stage of Change Stages of Change:: Pre-contemplation - Learning Barriers Learning Barriers: Participates in education - Patient previously participated in [place], repeats only education he chooses for review. - Family Support Do you have family support?: Yes - Tobacco Use Tobacco Use: Non-smoker Do you use smokeless tobacco?: No - Intervention Smoking Cessation Referral:: No Education Schedule Given:: Yes - Education Gave Education Materials For:: Pulmonary Disease, Risk Factors, Breathing Techniques, Medical Compliance, Pulmonary A&P, Exacerbation Signs & Symptoms, Stress & Relaxation Nutrition/Wt Mgmt - 30-Day - Weight Management Weight Assessment:: Wt stable Weight:: 197 lb Patient Health Questionnaire 30-Day Re-eval Assessment 1. Little interest or pleasure in doing things: Not at all 2. Feeling down, depressed, or hopeless: Several days 3. Trouble falling or staying asleep, or sleeping too much: Several days 4. Feeling tired or having little energy: Several days 5. Poor appetite or overeating: Not at all 6. Feeling bad about yourself -- or that you are a failure or have let yourself or your family down: Not at all 7. Trouble concentrating on things, such as reading the newspaper or watching television: Not at all 8. Moving or speaking so slowly that other people could have noticed. Or the opposite - being so fidgety or restless that you have been moving around a lot more than usual: Several days 9. Thoughts that you would be better off , or of hurting yourself in some way: Not at all How difficult have these problems made it for you to do your work, take care of things at home, or get along with other people?: Somewhat difficult Total Score: 4 Self-Efficacy 30-Day Re-eval Assessment We would like to know how confident you are in doing certain activities. Please select your confidence level for:: Select your confidence level for the following using the scale 1-10 where 1 is not at all confident and 10 is totally confident. Your score is the average of all 6 responses. Fatigue: How confident are you that you can keep the fatigue caused by your disease from interfering with the things you want to do? Select Number: 7 Physical Discomfort or Pain: How confident are you that you can keep the physical discomfort or pain of your disease from interfering with the things you want to do? Select Number: 6 Emotional Distress: How confident are you that you can keep the emotional distress caused by your disease from interfering with the things you want to do? Select Number: 6 Other Symptoms or Health Problems: How confident are you that you can keep other symptoms or health problems from interfering with the things you want to do? Select Number: 6 Different Tasks and Activities: How confident are you that you can do the different tasks and activities needed to manage your health condition so as to reduce your need to see a doctor? Select Number: 7 Medication: How confident are you that you can do things other than just taking medication to reduce how much your illness affects your everyday life? Select Number: 8 Total Score:: 6
== END 2019-02-27 23:59 ==
LOC: PR 09:30
PROVIDERS: Family Provider Family Medicine; PCP Family Medicine
DX: M35.8 Other specified systemic involvement of connective tissue (principal)
CPT/HCPCS: 97150; G0239

== ENCOUNTER 2019-03-29 09:30 | Outpatient (RCR) | payer MEDICARE, SELFPAY ==
[2018-12-29 10:59] VITALS: BMI 28.4
--- NOTE | 2019-03-24 12:43 | PCM.PR.TP ---
Exercise - 60-Day Assessment - Physician Prescribed Exercise Modalities: Treadmill, NuStep, SciFit Frequency (days/week): 3 Duration (Minutes):: 30-45 Intensity: 60-80% age predicted maximum heart rate reserve Aerobic Exercise [30-60 min 3-7x/week]:: Met Target heart rate: 92-106 MAX hr 109 Sage-14 METs - Progression: 0.5-1.0 MET, RPE 11-14 WEEK: 3.5 - MAX DUE TO ABDOMINAL HERNIA - Home Exercise Home Exercise:: Yes Frequency:: DAILY WALKING Time (minutes):: 15 - BID Disease Management - 60-Day - Hypoxemia Reassessment: Demonstrates knowledge of O2 Rx at rest, Demonstrates knowledge of O2 Rx with exercise, Using O2 as prescribed, Has home O2 as prescribed, Uses port O2 as prescribed - Medications Medication list reviewed:: Yes Taking medications 100% of the time:: Met Medication reassessment: Yes Pt demonstrates correct technique timing for MDI, Yes Pt demonstrates correct technique timing for DPI, Yes Pt demonstrates correct technique timing for NEB, Yes Pt demonstrates correct technique timing for spacer - Bronchial Hygiene Bronchial Hygiene Plan: Yes Pt demonstrates correctly for effective cough, Yes Pt demo correct for device, Yes Pt demo correct for improved hydration, Yes Pt demo correct for hand hygiene, Yes Pt demo correct for evalute sputum, Yes Pt demo correct for verbalize when to call MD Psychosocial - 60-Day - Assessment Depression reassess: Management of stress: Met, Management of depression: Met, Practicing interventions: Met Tobacco - 60-Day Assessment - Program Goals Tobacco Program Goals: Complete smoking cessation. Attend education classes. Improve Knowledge Test score - Stage of Change Stages of Change:: Action - Learning Barriers Learning Barriers: Participates in education - Family Support Do you have family support?: Yes - Tobacco Use Tobacco Use: Non-smoker Do you use smokeless tobacco?: No - Intervention Smoking Cessation Referral:: No Individual Education/Counseling:: No Education Schedule Given:: Yes - Education Gave Education Materials For:: Pulmonary Disease, Risk Factors, Breathing Techniques, Medical Compliance, Pulmonary A&P, Exacerbation Signs & Symptoms, Stress & Relaxation Nutrition/Wt Mgmt - 60-Day - Weight Management Weight Assessment:: Wt stable Weight:: 199 lb Weight Goals Progress:: Goal met Patient Health Questionnaire 90-Day Re-eval Assessment 1. Little interest or pleasure in doing things: Not at all 2. Feeling down, depressed, or hopeless: Several days 3. Trouble falling or staying asleep, or sleeping too much: Several days 4. Feeling tired or having little energy: Not at all 5. Poor appetite or overeating: Not at all 6. Feeling bad about yourself -- or that you are a failure or have let yourself or your family down: Not at all 7. Trouble concentrating on things, such as reading the newspaper or watching television: Not at all 8. Moving or speaking so slowly that other people could have noticed. Or the opposite - being so fidgety or restless that you have been moving around a lot more than usual: Several days 9. Thoughts that you would be better off , or of hurting yourself in some way: Not at all How difficult have these problems made it for you to do your work, take care of things at home, or get along with other people?: Not difficult at all Total Score: 3 Self-Efficacy 90-Day Re-eval Assessment We would like to know how confident you are in doing certain activities. Please select your confidence level for:: Select your confidence level for the following using the scale 1-10 where 1 is not at all confident and 10 is totally confident. Your score is the average of all 6 responses. Fatigue: How confident are you that you can keep the fatigue caused by your disease from interfering with the things you want to do? Select Number: 8 Physical Discomfort or Pain: How confident are you that you can keep the physical discomfort or pain of your disease from interfering with the things you want to do? Select Number: 7 Emotional Distress: How confident are you that you can keep the emotional distress caused by your disease from interfering with the things you want to do? Select Number: 7 Other Symptoms or Health Problems: How confident are you that you can keep other symptoms or health problems from interfering with the things you want to do? Select Number: 8 Different Tasks and Activities: How confident are you that you can do the different tasks and activities needed to manage your health condition so as to reduce your need to see a doctor? Select Number: 9 Medication: How confident are you that you can do things other than just taking medication to reduce how much your illness affects your everyday life? Select Number: 9 Total Score:: 8 Nutrition Survey - Nutrition Survey Instructions Scoring Instructions: Scoring is as follows: Yes = 1 points. No = 0 point. Patient score that is >/=12 is considered to be at potential nutritional risk and could benefit from a referral to a registered dietitian. - Nutrition Survey Discharge Have you lost >10 lbs over the past 2 months without trying?: No Are you following a special diet at home for diabetes, low fat, or low salt?: No Are you interested in meeting with a dietitian for help understanding your diet?: No Do you eat less than 3 meals a day?: No Do you eat fatty meats (wray, sausage, ribs, etc), fried foods, desserts, large amounts of salad dressings, margarine, butter, or cheese most days?: No Do you have food allergies? [Enter types in comment field]: No Do you eat in restaurants more than 3 times a week?: No Do you season food with salt, seasoning salt, or garlic salt?: No Do you used canned, boxed, frozen meals, or soups, seasoning packets?: Yes Total Score:: 1
== END 2019-03-29 23:59 ==
LOC: PR 09:30
PROVIDERS: Family Provider Family Medicine; PCP Family Medicine
DX: M35.8 Other specified systemic involvement of connective tissue (principal)
CPT/HCPCS: 97150; G0239

== ENCOUNTER 2019-04-01 06:43 | Outpatient (RCR) | payer MEDICARE, SELFPAY ==
[2019-03-24 06:34] VITALS: BMI 28.4
== END 2019-04-29 23:59 ==
LOC: PR 06:43
PROVIDERS: Family Provider Family Medicine; PCP Family Medicine
DX: M35.8 Other specified systemic involvement of connective tissue (principal)

== ENCOUNTER → 2019-04-13 09:38 | Outpatient (CLI) | payer MEDICARE, SELFPAY ==
[2019-03-24 06:34] VITALS: BMI 28.4
[2019-04-12 08:29] VITALS: BMI 28.4
--- NOTE | 2019-04-13 09:39 | ECHOD_ITS ---
Reason For Study: PHTN Procedure This was a 2D Doppler, Color Flow transthoracic echocardiogram. The exam was of adequate technical quality. Exam performed in department. Left Ventricle Normal LV size. Left ventricular systolic function is normal. The estimated ejection fraction is 65 %. No regional wall motion abnormalities noted. Right Ventricle Normal RV size. Normal systolic function. Atria The left atrium is moderately enlarged. Normal right atrium. No doppler evidence for ASD. Mitral Valve There is mild mitral annular calcification. Mild focal mitral valve calcification of the anterior leaflet. Trivial mitral valve insufficiency. Tricuspid Valve Normal tricuspid valve. Moderate (2+) tricuspid valve insufficiency. Right ventricular systolic pressure estimated to be 57 mmHg. Aortic Valve Trisinus/trileaflet aortic valve. Mild diffuse aortic valve thickening. Moderate focal aortic valve calcification. Pulmonic Valve The pulmonic valve is not well visualized. Trivial pulmonic valve insufficiency. Great Vessels Normal sized aortic root. Pericardium/Pleural No pericardial effusion. MMode/2D Measurements & Calculations LVIDd: 4.3 cm IVSd: 0.82 cm Ao root diam: 3.6 cm LVIDs: 2.9 cm LVPWd: 0.83 cm RVDd: 3.7 cm FS: 32.0 % LAV(MOD-bp): 72.6 ml LA A4 area: 22.4 cm2 LA dimension(2D): 4.0 cm LAV(MOD-bp) Indexed: 35.8 ml/m2 LAV(MOD-sp2): 81.9 ml LAV(MOD-sp4): 63.3 ml RA A4 area: 13.8 cm2 Time Measurements MV dec time: 0.22 sec Doppler Measurements & Calculations MV E max mann: 95.2 cm/sec Lat Peak E' Mann: 8.6 cm/sec Med Peak E' Mann: 8.6 cm/sec MV A max mann: 66.7 cm/sec E/E' lat: 11.1 E/E' med: 11.1 MV E/A: 1.4 Ao V2 max: 162.6 cm/sec LV V1 max: 107.5 cm/sec PA V2 max: 88.1 cm/sec Ao max P.6 mmHg LV V1 max P.6 mmHg TR max mann: 321.8 cm/sec TR max P.5 mmHg Interpretation Summary Left ventricular systolic function is normal. The estimated ejection fraction is 65 %. The left atrium is moderately enlarged. There is mild mitral annular calcification. Mild focal mitral valve calcification of the anterior leaflet. Trivial mitral valve insufficiency. Moderate (2+) tricuspid valve insufficiency. Mild diffuse aortic valve thickening. Moderate focal aortic valve calcification. Trivial pulmonic valve insufficiency. Right ventricular systolic pressure estimated to be 57 mmHg. Transmitral diastolic flow velocities suggest diastolic dysfunction (pseudonormal pattern). Ordering Physician: Lucio Calabrese Referring Physician: CHRISTIAN JUAREZ Performed By: Samina Marques, RAPHAEL, RVT
== END ==
PROVIDERS: Family Provider Family Medicine; PCP Family Medicine; Referring Provider Internal Medicine Critical Care Medicine; Visit Provider Internal Medicine Critical Care Medicine
DX: I27.20 Pulmonary hypertension, unspecified (principal); J84.9 Interstitial pulmonary disease, unspecified; Z87.2 Personal history of diseases of the skin and subcutaneous tissue
CPT/HCPCS: 93306

== ENCOUNTER → 2019-04-30 21:09 | Outpatient (CLI) | payer MEDICARE, SELFPAY ==
[2019-03-24 06:34] VITALS: BMI 28.4
[2019-04-12 08:29] VITALS: BMI 28.4
== END ==
PROVIDERS: Family Provider Family Medicine; PCP Family Medicine; Referring Provider Internal Medicine Critical Care Medicine; Visit Provider Internal Medicine Critical Care Medicine
DX: G47.10 Hypersomnia, unspecified (principal)
CPT/HCPCS: 95810

== ENCOUNTER 2019-05-13 09:41 | Day surgery (SDC) | payer MEDICARE, SELFPAY ==
[2019-04-12 08:29] VITALS: BMI 28.4
[2019-05-13 10:02] VITALS: BP 141/76; PULSE 86; RESP 16; TEMP 36.5; O2SAT 100; BMI 29.2
--- NOTE | 2019-05-13 10:16 | PCM.HP.STD ---
Problem List (1) Hypersomnia Status: Acute (2) Chronic respiratory failure with hypoxia Status: Chronic (3) Traction bronchiectasis Status: Chronic (4) Inguinal hernia, right Status: Resolved (5) History of vasectomy Status: Resolved (6) GERD (gastroesophageal reflux disease) Status: Chronic (7) Anxiety Status: Chronic (8) History of dermatomyositis Status: Chronic (9) History of dermatophytosis Status: Chronic (10) skin cancer removal facial Status: Acute (11) benign prostate hypertrophy-symptomatic Status: Acute (12) Fatty infiltration of liver Status: Acute (13) Dermatomyositis Status: Chronic (14) Interstitial lung disease Status: Chronic History of Present Illness Date of Admission: 05/13/19 Chief Complaint: Cataract Right Eye. blurred vision right eye The patient is a 78 year old M with history of blurred vision in the right eye, here for cataract surgery right eye. He has been cleared for surgery by his PCP. [] Past Medical History Past Medical History (Chronic Problems): Chronic Problems (Last Reviewed 04/12/19 @ 14:16 by Crista Girard NP-C) Chronic respiratory failure with hypoxia (Chronic) Traction bronchiectasis (Chronic) GERD (gastroesophageal reflux disease) (Chronic) Anxiety (Chronic) History of dermatomyositis (Chronic) History of dermatophytosis (Chronic) Dermatomyositis (Chronic) Interstitial lung disease (Chronic) Medical History: Medical History (Last Reviewed 04/12/19 @ 14:16 by Crista Girard NP-C) GERD (gastroesophageal reflux disease) (Chronic) K21.9 skin cancer removal facial (Acute) benign prostate hypertrophy-symptomatic (Acute) Fatty infiltration of liver (Acute) K76.0 Dermatomyositis (Chronic) M33.90 Interstitial lung disease (Chronic) J84.9 Allergies alfuzosin HCl [From Uroxatral] Allergy (Verified 05/13/19 09:53) Pain in joints codeine Allergy (Verified 05/13/19 09:53) Rash doxazosin Allergy (Verified 05/13/19 09:53) Rash Penicillins Allergy (Verified 05/13/19 09:53) Rash silodosin [From Rapaflo] Allergy (Verified 05/13/19 09:53) Other ciprofloxacin Adverse Reaction (Severe, Verified 05/13/19 09:53) tachycardia Iodinated Contrast Media Adverse Reaction (Severe, Verified 05/13/19 09:53) Rash methotrexate Adverse Reaction (Severe, Verified 05/13/19 09:53) liver damage prednisone Adverse Reaction (Severe, Verified 05/13/19 09:53) glaucoma Home Medications: Ambulatory Orders Medication Instructions Recorded Fish Oil/Dha/Epa [Fish Oil 1,200 1,200 mg PO BID 08/27/13 mg Fish Oil] Zinc 50 mg PO DAILY 08/27/13 Famotidine [Pepcid] 20 mg PO DAILY 07/18/17 Lactobacillus Combination No.8 1 ea PO DAILY 07/18/17 [Adult Probiotic] Oxygen, Home [Home Oxygen] 3 lpm NASAL DAILY 07/18/17 Calcium Carbonate/Vitamin D3 2 ea PO DAILY 05/06/19 [Calcium 600-Vit D3 200 Tablet] Cyanocobalamin (Vitamin B-12) 5,000 mcg PO DAILY 05/06/19 [Vitamin B-12] Cyanocobalamin [Vitamin B12] 500 mcg PO DAILY@0800 05/06/19 Mycophenolate Mofetil [Cellcept] 500 mg PO BID 05/06/19 Surgical History: Surgical History (Last Reviewed 04/12/19 @ 14:16 by Crista Girard, MEDICAL DEVICE ASSEMBLER-C) Inguinal hernia, right (Resolved) K40.90 History of vasectomy (Resolved) Z98.52 Surgical History: herniorrhaphy Smoking Status: Never smoker Tobacco Use: Non-smoker Review of Systems Respiratory: Reports: Shortness of breath upon exertion VTE Information - Inpt Only VTE Present on Admission: No Reason prophylaxis not ordered:: Procedure Not Indicated - Physical Exam Vitals/I&O's: Vital Signs Temp Pulse Resp BP Pulse Ox 97.7 F L 86 16 141/76 H 100 05/13/19 10:02 05/13/19 10:02 05/13/19 10:02 05/13/19 10:02 05/13/19 10:02 Oxygen Flow Rate (L/min) 3 Oxygen Delivery Method Nasal Cannula Weight: 89.7 kg Body Mass Index (BMI) 29.2 General: Alert, Oriented x3 HEENT: EOMI Oral: Moist Mucosa Lungs: Wheezes Cardiovascular: Regular rate, Regular Rhythm, No murmurs Abdomen: Soft, Non Tender Extremities: No edema Current Medications Sod Cl/Ca Cl/Mg Cl/Pot Cl 500 (ml/ Epinephrine HCl 0.5 mg) 0 ml OPERA.SITE UD ONE Stop: 05/13/19 11:31 Dextrose () 1,000 mls @ 15 mls/hr IV .[id number] RICKY Stop: 05/16/19 01:39 Lactated Ringer's () 1,000 mls @ 30 mls/hr IV .[id number] RICKY Assessment/Plan All Active Problems (Last Reviewed 04/12/19 @ 14:16 by Crista Girard, MEDICAL DEVICE ASSEMBLER-C) Hypersomnia (Acute) Inguinal hernia, right (Resolved) History of vasectomy (Resolved) skin cancer removal facial (Acute) benign prostate hypertrophy-symptomatic (Acute) Fatty infiltration of liver (Acute) Cataract Right Eye: to operating room for cataract surgery OD under mac/topical.
[2019-05-13] MEDS: Lactated Ringers 1,000 ML 30 ML IV (10:18)
[2019-05-13] MEDS: Povidone Iodine 30 ML Opthalmic Sol 1 DRP (12:00)
--- NOTE | 2019-05-13 12:27 | PCM.DC.CATCL ---
Allergies/Adverse Reactions: Allergies alfuzosin HCl [From Uroxatral] Allergy (Verified 05/13/19 09:53) Pain in joints codeine Allergy (Verified 05/13/19 09:53) Rash doxazosin Allergy (Verified 05/13/19 09:53) Rash Penicillins Allergy (Verified 05/13/19 09:53) Rash silodosin [From Rapaflo] Allergy (Verified 05/13/19 09:53) Other ciprofloxacin Adverse Reaction (Severe, Verified 05/13/19 09:53) tachycardia Iodinated Contrast Media Adverse Reaction (Severe, Verified 05/13/19 09:53) Rash methotrexate Adverse Reaction (Severe, Verified 05/13/19 09:53) liver damage prednisone Adverse Reaction (Severe, Verified 05/13/19 09:53) glaucoma Medications to take at Discharge Fish Oil/Dha/Epa [Fish Oil 1,200 mg Fish Oil] 1,200 mg PO BID 08/27/13 Zinc 50 mg PO DAILY 08/27/13 Famotidine [Pepcid] 20 mg PO DAILY 07/18/17 Lactobacillus Combination No.8 [Adult Probiotic] 1 ea PO DAILY 07/18/17 Oxygen, Home [Home Oxygen] 3 lpm NASAL DAILY 07/18/17 Calcium Carbonate/Vitamin D3 [Calcium 600-Vit D3 200 Tablet] 2 ea PO DAILY 05/06/19 Cyanocobalamin (Vitamin B-12) [Vitamin B-12] 5,000 mcg PO DAILY 05/06/19 Cyanocobalamin [Vitamin B12] 500 mcg PO DAILY@0800 05/06/19 Mycophenolate Mofetil [Cellcept] 500 mg PO BID 05/06/19 Cataract Instructions: -Take a pain reliever such as Tylenol, Aspirin or Ibuprofen if needed for eye aching or pain. If this is not enough relief for you pain, call your doctor (or the doctor therapeutic recreation leader), even at night. -You are scheduled for a follow-up appointment at [facility] the day after surgery. You should have someone drive you. -Transient pain and irritation are due to the incision that was made at the time of surgery and do not indicate any trouble. Our office numbers are . If there is no answer, or if it is after our normal business hours, call your surgeon. My home phone number is: Dr. Linette Carter INSTRUCTIONS FOLLOWING TOPICAL ANESTHETIC CATARACT SURGERY Protect operated eye with glasses or metal shield at all times. Instill one drop of Polytrim (or other antibiotic drop), one drop of Prednisolone and one drop of Acular in the operated eye four times a day (breakfast, lunch, dinner, and bedtime) until the doctor tells you to quit or decrease them. Wait 3-5 minutes between each drop. Please begin these immediately upon arriving at home. if your surgery is in t he afternoon, try to use the drops at least three more times the day of surgery and again the following morning before your appointment. INSTRUCTIONS FOLLOWING RETROBULBAR CATARACT SURGERY Keep the eye patch and metal shield on until you see your surgeon the day after surgery - these will be removed in the office that day. Do not drive while the patch is on your eye. You will be instructed about the use of drops for the operated eye at that visit. Primary Care Physician: Tony Sanchez MD [Primary Care Provider] -
[2019-05-13 12:30] VITALS: BP 132/79; BP 141/76; PULSE 73; RESP 16; TEMP 36.9; O2SAT 100
[2019-05-13 12:35] VITALS: BP 115/95; BP 141/76; PULSE 70; RESP 16; O2SAT 100
[2019-05-13 12:40] VITALS: BP 134/80; BP 141/76; PULSE 74; RESP 16; O2SAT 99
--- NOTE | 2019-05-13 12:44 | OP.PCM_ITS ---
Problem List (1) Hypersomnia Status: Acute (2) Chronic respiratory failure with hypoxia Status: Chronic (3) Traction bronchiectasis Status: Chronic (4) GERD (gastroesophageal reflux disease) Status: Chronic (5) Anxiety Status: Chronic (6) History of dermatomyositis Status: Chronic (7) History of dermatophytosis Status: Chronic (8) skin cancer removal facial Status: Acute (9) benign prostate hypertrophy-symptomatic Status: Acute (10) Fatty infiltration of liver Status: Acute (11) Dermatomyositis Status: Chronic (12) Interstitial lung disease Status: Chronic Report of Operation Date of Procedure: 05/13/19 Pre-Operative Diagnosis: Cataract right eye Post-Operative Diagnosis: same Surgery/Procedure Performed:: PEM IOL OD Description of Surgical Findings:: cataract Type of Anesthesia:: MAC and Topical Anesth Estimated Blood Loss (mL): none Description of Procedure: Indications for Procedure: 78 yo male with history of worsening vision in the right eye secondary to cataract. After discussion of the risks, benefit, alternatives, of cataract surgery the patient agreed to proceed. Description of Procedure: The patient was brought to the operating room where a time out was performed prior to the start of the procedure. Anesthesia team digna genet light sedation. The eye was prepped and draped in the normal sterile fashion for eye surgery. A eric blade was used to create a paracentesis incision. Preservative free lidocaine, followed by viscoat was instilled into the anterior chamber. A keratome was used to create a clear corneal biplanar incision at the temporal limbus. A cystotome was used to begin the capsulorhexis which was completed in a continuous curvilenear fashion with forceps. BSS on a jon cannula was used to hydrate beneath the lens capsule until the lens was noted to be freely mobile in the capsular bag. Phacoemulsification was used to remove the lens in a divide and conquer technique. The remaining cortical material was removed using irrigation and aspiration. The capsular bag was noted to be intact. provisc was used to inflate the capsular bag and a tecnis 21.5 diopter lens was placed into the capsular bag and adjusted using a shama hook. The remaining viscoelastic was removed. The wounds were hydrated and a 10-0 nylon was used to secure the main incision. The incision was noted to be watertight with a weck cell sponge. The patient was taken to the recovery room with instructions to follow up in the clinic the following day. - Complications none - Admit VTE Documentation Reason prophylaxis not ordered:: Procedure Not Indicated - patient will ambulate
[2019-05-13 12:45] VITALS: BP 141/69; BP 141/76; PULSE 65; RESP 16; TEMP 36.9; O2SAT 100
[2019-05-13 13:17] VITALS: BP 141/76
== END 2019-05-13 13:18 | disposition home or self-care (01) ==
LOC: SDC 09:41 → AC 09:43
PROVIDERS: Family Provider Family Medicine; PCP Family Medicine; Referring Provider Ophthalmology; Visit Provider Ophthalmology
PROC: (CPT 66982; principal; 2019-05-13 11:20)
DX: H25.811 Combined forms of age-related cataract, right eye (principal); G47.10 Hypersomnia, unspecified; J47.9 Bronchiectasis, uncomplicated; K21.9 Gastro-esophageal reflux disease without esophagitis; J96.11 Chronic respiratory failure with hypoxia; K76.0 Fatty (change of) liver, not elsewhere classified; M33.90 Dermatopolymyositis, unspecified, organ involvement unspecified; Z85.828 Personal history of other malignant neoplasm of skin; Z99.81 Dependence on supplemental oxygen; Z79.899 Other long term (current) drug therapy
CPT/HCPCS: 00142; 66982; J7120

== ENCOUNTER → 2019-05-17 12:21 | Outpatient (CLI) | payer MEDICARE, SELFPAY ==
[2019-05-13 10:02] VITALS: BMI 29.2
[2019-05-17 13:49] LABS: Absolute Lymphocyte Count 2.15 X10^3/uL (0.83-4.51); Absolute Neutrophil Count 4.6 X10^3/uL (2.0-7.7); Basophil# 0.04 X10^3/uL; Basophil% 0.5 % (0-1); Eosinophil# 0.14 X10^3/uL; Eosinophils% 1.8 % (0-5); Hematocrit 39.9 % (40-54); Hemoglobin 13.3 g/dL (13.0-16.5); Lymphocyte # 2.15 X10^3/ul (4.0); Lymphocyte % 27.8 % (19-41); Mean Corp Hgb Conc 33.3 g/dL (32-36); Mean Corpuscular Hgb 33.6 pg (27.0-32.0); Mean Corpuscular Volume 100.8 fL (80-94); Mean Platelet Vol. 11.2 fl (6.2-12.0); Monocyte# 0.79 X10^3/uL; Monocyte% 10.2 % (0-10); NRBC Flagged by Analyzer 0 % (0-5); Neutrophil % 59.4 % (47-70); Platelet Count 204 K/mm3 (150-450); RBC Distribution Width CV 12.4 % (11.6-14.6); RBC Distribution Width SD 46.5 fl (35.1-43.9); Red Blood Count 3.96 M/mm3 (4.6-6.2); White Blood Count 7.7 K/mm3 (4.4-11.0)
[2019-05-17 14:19] LABS: ALB/GLOB Ratio 0.9 RATIO (0.9-2.4); AST(SGOT) 28 U/L (15-37); Alanine Aminotransfer ALT/SGPT 27 U/L (16-61); Albumin, Serum 3.6 g/dL (3.2-5.0); Alkaline Phosphatase 81 U/L (45-117); Anion Gap 8 (5-15); BUN 18 mg/dL (7-18); BUN/Creat Ratio 13.5 RATIO (10-20); Calcium,Total 9.2 mg/dL (8.5-10.1); Chloride 95 mmol/L (98-107); Creatinine, Serum 1.33 mg/dL (0.70-1.30); EST Glomerular Filtration Rate 55 mL/min (>60); Est Glom Filt Rate - Afr Amer 67 mL/min (>60); Globulin 4.2 g/dL (2.2-4.2); Glucose 92 mg/dL (74-106); Potassium 4.2 mmol/L (3.5-5.1); Protein, Total 7.8 g/dL (6.4-8.2); Sodium Level 131 mmol/L (136-145)
== END ==
PROVIDERS: Family Provider Family Medicine; PCP Family Medicine; Referring Provider Internal Medicine Rheumatology; Visit Provider Internal Medicine Rheumatology
DX: M06.4 Inflammatory polyarthropathy (principal); M33.90 Dermatopolymyositis, unspecified, organ involvement unspecified; K21.0 Gastro-esophageal reflux disease with esophagitis; K76.0 Fatty (change of) liver, not elsewhere classified; M51.87 Other intervertebral disc disorders, lumbosacral region; N40.0 Benign prostatic hyperplasia without lower urinary tract symptoms
CPT/HCPCS: 36415; 80053; 85025

== ENCOUNTER → 2019-05-31 13:00 | Outpatient (CLI) | payer MEDICARE, SELFPAY ==
[2019-05-13 10:02] VITALS: BMI 29.2
== END ==
PROVIDERS: Family Provider Family Medicine; PCP Family Medicine; Referring Provider Internal Medicine Critical Care Medicine; Visit Provider Internal Medicine Critical Care Medicine
DX: G47.33 Obstructive sleep apnea (adult) (pediatric) (principal)
CPT/HCPCS: 98960; G0463

== ENCOUNTER 2019-06-18 08:34 | Emergency (ER) | payer MEDICARE, SELFPAY ==
[2019-06-01 08:02] VITALS: BMI 29.2
[2019-06-18 08:38] VITALS: BP 160/76; PULSE 101; RESP 20; TEMP 36.5; O2SAT 99; BMI 28.3
--- NOTE | 2019-06-18 09:05 | EKG12_ITS ---
Test Reason : Blood Pressure : / mmHG Vent. Rate : 081 BPM Atrial Rate : 081 BPM P-R Int : 188 ms QRS Dur : 090 ms QT Int : 360 ms P-R-T Axes : 027 -22 031 degrees QTc Int : 418 ms Normal sinus rhythm Moderate voltage criteria for LVH, may be normal variant Borderline ECG Confirmed by COLLINS KUHN, OSWALD ([id number]), metropolitan editor TASNEEM LAUREANO ([id number]) on 06/21/2019 1:34:49 PM Referred By: SVETA Confirmed By:OSWALD GUADALUPE MD
--- NOTE | 2019-06-18 09:05 | RAD_ITS ---
STUDY: X-RAY CHEST REASON FOR EXAM: Male, 79 years old. Dyspnea TECHNIQUE: AP and lateral views of the chest. COMPARISON: Comparison is made with prior study dated August 14, 2012. FINDINGS: EKG electrodes are seen. There is evidence of increased interstitial markings in both lungs with areas of confluence at the lung bases. This may represent a combination of the vascular congestion and mild CHF superimposed on the chronic scarring. Questionable 1.7 cm nodule in the left upper lobe. Normal size heart. Normal mediastinum and azalia. Normal visualized pulmonary arteries. There is atherosclerotic calcification of the aortic arch with tortuosity. Normal visualized thoracic spine. Normal visualized ribs, clavicles, and shoulders. There is no demonstrated abnormality of the visualized soft tissue structures of the upper abdomen. RAD/Chest PA and Lateral IMPRESSION: Increased interstitial markings with areas of confluence suggestive of a mild degree of CHF superimposed on chronic scarring. Questionable 1.7 Cm nodule in the left upper lobe. Electronically Signed: Jonathan Rivera, at 10:08 EST , Service support ,
--- NOTE | 2019-06-18 09:11 | ED.DCSUM_ITS ---
- ER Visit Summary Date of Service: 06/18/19 Chief Complaint: Palpitations History of Present Illness: The patient is a 79 M who presents with palpitations that have been constant for the past week. Patient states it feels like his heart is racing. Patient states his heart rate goes up and down. Patient states he feels he is in his chest. Patient states they are worse with walking. Patient thinks he is having an adverse reaction to either his albuterol inhaler or his [id number] herbal supplement. Patient denies any chest pain. Patient has a history of pulmonary fibrosis and bronchiectasis. Patient admits to shortness of breath and cough because of this. Patient states he is coughing up clear sputum. Physical Examination: Vital signs are stable. Patient is afebrile. Patient is in no acute distress. Oral mucosa is pink and moist. Neck is supple. Trachea is midline. There is no JVD. Heart was regular rate and rhythm. Lungs are clear and equal bilaterally. Abdomen is soft. Bowel sounds are normal. Cranial nerves II through XII are intact. There are no focal motor or sensory deficits noted. Extremities are intact. There is no calf tenderness or swelling. Test Results: EKG shows a normal sinus rhythm with a rate of 81. There are no acute ST or T wave changes. This was unchanged compared to previous EKG dated 08/27/2013. CBC, metabolic profile, troponin, and BNP were obtained and were within normal limits. Chest x-ray shows interstitial markings suggestive of mild degree of CHF on chronic scarring. There is also a questionable 1.7 cm nodule in the left upper lobe. These were interpreted by the radiologist and reviewed by myself. Emergency Department Course and Treatment: Patient was placed on oxygen. Patient was ambulated in the emergency department with a pulse oximeter. Patient's heart rate went up to 104 and his pulse oximeter went from 99 at rest to 95 while ambulating. Patient was advised of his results. Patient was instructed to follow-up with his primary care physician in 3 to 5 days. Patient understood and was agreeable with the plan. All questions were answered. Disposition: Discharge home Impression: 1. Palpitations This note was generated with [employer] software. It may contain incorrect words, spelling, and punctuation that were not noted in review of the chart prior to signing ED Disposition - Plan for ED Patient: Disposition: Home or Assisted Living Diagnosis: Palpitations Instructions: Palpitations Referrals: Tony Sanchez MD [Primary Care Provider] - 3-5 Days
[2019-06-18 09:16] VITALS: BP 155/74; PULSE 85; RESP 28; O2SAT 99
[2019-06-18 09:42] LABS: Absolute Lymphocyte Count 1.05 X10^3/uL (0.83-4.51); Absolute Neutrophil Count 5.3 X10^3/uL (2.0-7.7); Basophil# 0.03 X10^3/uL; Basophil% 0.4 % (0-1); Eosinophil# 0.04 X10^3/uL; Eosinophils% 0.6 % (0-5); Hematocrit 38.6 % (40-54); Hemoglobin 12.9 g/dL (13.0-16.5); Lymphocyte # 1.05 X10^3/ul (4.0); Lymphocyte % 14.9 % (19-41); Mean Corp Hgb Conc 33.4 g/dL (32-36); Mean Corpuscular Hgb 33.3 pg (27.0-32.0); Mean Corpuscular Volume 99.7 fL (80-94); Mean Platelet Vol. 10.7 fl (6.2-12.0); Monocyte# 0.66 X10^3/uL; Monocyte% 9.3 % (0-10); NRBC Flagged by Analyzer 0 % (0-5); Neutrophil # 5.25 X10^3/uL (2.7-7.7); Neutrophil % 74.4 % (47-70); Platelet Count 175 K/mm3 (150-450); RBC Distribution Width CV 12.4 % (11.6-14.6); RBC Distribution Width SD 45.1 fl (35.1-43.9); Red Blood Count 3.87 M/mm3 (4.6-6.2); White Blood Count 7.1 K/mm3 (4.4-11.0)
[2019-06-18 09:52] LABS: Anion Gap 4 (5-15); BUN 16 mg/dL (7-18); BUN/Creat Ratio 12.6 RATIO (10-20); Calcium,Total 8.8 mg/dL (8.5-10.1); Chloride 100 mmol/L (98-107); Creatinine, Serum 1.27 mg/dL (0.70-1.30); EST Glomerular Filtration Rate 58 mL/min (>60); Est Glom Filt Rate - Afr Amer 70 mL/min (>60); Estimated Creatinine Clearance 47.16 ml/min; Glucose 107 mg/dL (74-106); Potassium 4.2 mmol/L (3.5-5.1); Sodium Level 134 mmol/L (136-145)
[2019-06-18 10:44] LABS: BNP,B-Type NATRIURETIC PEPTIDE 48.7 pg/mL (0-100)
[2019-06-18 11:00] VITALS: BP 146/72; PULSE 91; O2SAT 95
[2019-06-18 11:08] VITALS: O2SAT 99
[2019-06-18 11:21] VITALS: BP 145/72; O2SAT 99
== END 2019-06-18 11:32 | disposition home or self-care (01) ==
PROVIDERS: Emergency Provider Emergency Medicine; Family Provider Family Medicine; PCP Family Medicine
DX: R00.2 Palpitations (principal); R06.02 Shortness of breath; J84.10 Pulmonary fibrosis, unspecified; Z99.81 Dependence on supplemental oxygen; Z79.899 Other long term (current) drug therapy
CPT/HCPCS: 71046; 80048; 83880; 84484; 85025; 93005; 99284; A4216

== ENCOUNTER 2019-08-10 12:43 | Emergency (ER) | payer MEDICARE, SELFPAY ==
[2019-07-12 08:06] VITALS: BMI 28.2
[2019-08-10 12:45] VITALS: BP 182/72; PULSE 102; RESP 18; TEMP 37.1; O2SAT 80; BMI 28.5
--- NOTE | 2019-08-10 13:11 | CT_ITS ---
STUDY: CT ABDOMEN AND PELVIS WITHOUT CONTRAST REASON FOR EXAM: Male, 79 years old. LARGE INGUINAL HERNIA, LLQ PAIN, HX OF FIBROSIS RADIATION DOSAGE (If Supplied By Facility): CTDIvol = ( 10.13 ) mGy, DLP = ( 655.87 ) mGycm TECHNIQUE: Transaxial images were obtained from the dome of the diaphragm to the symphysis pubis without oral contrast, and without intravenous contrast. Sagittal and coronal images were reconstructed. Individualized dose optimization techniques were used for this CT. COMPARISON: None. FINDINGS: Diffuse increased interstitial markings with areas of confluence in the lower lobes with evidence of the honeycombing and bronchiectasis in keeping with the patient''s history of pulmonary fibrosis. Coronary artery calcification. Normal liver. Normal gallbladder and extrahepatic biliary system. Normal spleen. Normal pancreas. Normal bilateral adrenal glands. Normal right kidney. Normal left kidney. Normal visualized stomach. Normal small intestine. Normal colon. The appendix is visualized and appears normal. There is diffuse atherosclerotic calcification of the abdominal aorta and major visceral branches, without a demonstrated aneurysm. Normal inferior vena cava. Normal retroperitoneum. Diffuse thickening of the bladder wall. There is enlargement of the prostate gland. The prostate measures 4.4 cm x 4.9 cm. Central prostatic calcification. There is evidence of prior mesh fixation of the hernia in the right lower quadrant. Moderate-sized left inguinal hernia containing fat and a portion of the sigmoid colon. Small to intermediate size right inguinal hernia containing fluid. Normal osseous structures. CT/Abdomen/Pelvis without Cont IMPRESSION: Bilateral inguinal hernias larger on the left side containing portion of the sigmoid colon. Prostatic hypertrophy. Pulmonary fibrosis. Electronically Signed: Jonathan Rivera, at 13:50 EST , Service support ,
--- NOTE | 2019-08-10 13:13 | ED.VIS.GEN ---
History of Present Illness Chief Complaint: Abd Pain Narrative: Patient presents for the evaluation of a left inguinal hernia. This is been present for years. He was previously seen a surgeon at [facility] who told him that due to his severe pulmonary fibrosis for which she is on hospice he was not a surgical candidate and if anything would possibly need to be done it would have to be done at [facility]. He states that he has been using a support belt and as long as it is in place the hernia was reduced. However when he takes it off the hernia comes out that is extremely painful for him until he is able to put it back in. He states that he would like to explore other options in his care. He has not contacted a surgeon or the surgeon he recently saw. He came to the emergency department in hopes that a surgeon could come down and see him and speak with him about possibilities. Past Medical History - Allergies and Home Meds Allergies/Adverse Reactions: Allergies alfuzosin HCl [From Uroxatral] Allergy (Verified 08/10/19 12:48) Pain in joints codeine Allergy (Verified 08/10/19 12:48) Rash doxazosin Allergy (Verified 08/10/19 12:48) Rash Penicillins Allergy (Verified 08/10/19 12:48) Rash silodosin [From Rapaflo] Allergy (Verified 08/10/19 12:48) Other ciprofloxacin Adverse Reaction (Severe, Verified 08/10/19 12:48) tachycardia Iodinated Contrast Media Adverse Reaction (Severe, Verified 08/10/19 12:48) Rash methotrexate Adverse Reaction (Severe, Verified 08/10/19 12:48) liver damage prednisone Adverse Reaction (Severe, Verified 08/10/19 12:48) glaucoma Primary Care Physician: Tony Sanchez MD [Primary Care Provider] - Surgical History: herniorrhaphy Smoking Status: Never smoker Review of Systems General: Denies: Chills, Fever, Sweats Eyes: Denies: Visual changes - bilaterally, Diplopia ENT: Denies: Rhinorrhea, Sore throat Cardiovascular: Denies: Chest pain, Palpitations Respiratory: Denies: Dyspnea, Cough, Dyspnea on exertion Gastrointestinal: Reports: Abdominal pain, -. Denies: Nausea, Vomiting, Diarrhea, Melena, Hematochezia Genitourinary: Denies: Dysuria, Hematuria, Frequency Musculoskeletal: Denies: Back pain, Extremity Pain Skin: Denies: Rash, Wounds Neurological: Denies: Headache, Weakness, Numbness Physical Exam Vital Signs/Narrative: Vital Signs Temp Pulse Resp BP Pulse Ox 08/10/19 12:45 98.8 F 102 H 18 182/72 H 80 Inital Vital Signs reviewed: Yes General: Well nourished, Well developed, No Acute Distress Head: Normocephalic, Atraumatic Eyes: Perrl, EOMI ENT: Moist mucous membranes, No rhinorrhea Neck: Supple, Nontender Cardiovascular: Regular rate, Regular rhythm, No murmurs Respiratory: No distress, CTA bilaterally, Chest nontender Abdomen: Soft, Nondistended, Normal bowel sounds, Inguinal hernia - The area in the left inguinal area is tender to palpation. No overt erythema. Back: Nontender, Normal Inspection Extremities: Nontender, No edema Skin: Normal color, No rash Neurological: Alert, Oriented x3, Cranial nerves II-XII grossly intact, Normal Strength, Normal Sensation Psychological: Normal affect, Normal Mood ED Disposition - Plan for ED Patient: Disposition: Home or Assisted Living Diagnosis: Left inguinal hernia Instructions: HERNIA (Inguinal, Ventral, Umbilical) Referrals: Tony Sanchez MD [Primary Care Provider] - As Needed Additional Instructions: Your best bet for determining options for care of your hernia is to be seen in a large Medical Center. I would recommend calling [facility] and obtaining surgical consultation. That phone number is [phone]
[2019-08-10 14:34] VITALS: BP 121/74; PULSE 74; RESP 16; O2SAT 98
== END 2019-08-10 14:36 | disposition home or self-care (01) ==
PROVIDERS: Emergency Provider Emergency Medicine; PCP Family Medicine
DX: K40.90 Unilateral inguinal hernia, without obstruction or gangrene, not specified as recurrent (principal); J84.10 Pulmonary fibrosis, unspecified; Z51.5 Encounter for palliative care
CPT/HCPCS: 74176; 99282

== ENCOUNTER → 2019-08-13 | Outpatient (CLI) | payer SELFPAY ==
[2019-08-10 12:45] VITALS: BMI 28.5
[2019-08-13 12:59] LABS: Absolute Lymphocyte Count 1.04 X10^3/uL (0.83-4.51); Absolute Neutrophil Count 10.2 X10^3/uL (2.0-7.7); Basophil# 0.03 X10^3/uL; Basophil% 0.2 % (0-1); Eosinophil# 0.05 X10^3/uL; Eosinophils% 0.4 % (0-5); Hematocrit 42.3 % (40-54); Lymphocyte # 1.04 X10^3/ul (4.0); Lymphocyte % 8.5 % (19-41); Mean Corp Hgb Conc 33.1 g/dL (32-36); Mean Corpuscular Hgb 33.7 pg (27.0-32.0); Mean Corpuscular Volume 101.7 fL (80-94); Mean Platelet Vol. 11.4 fl (6.2-12.0); Monocyte# 0.87 X10^3/uL; Monocyte% 7.1 % (0-10); NRBC Flagged by Analyzer 0 % (0-5); Neutrophil % 83.5 % (47-70); Platelet Count 183 K/mm3 (150-450); RBC Distribution Width CV 12.9 % (11.6-14.6); Red Blood Count 4.16 M/mm3 (4.6-6.2); White Blood Count 12.2 K/mm3 (4.4-11.0)
[2019-08-13 13:13] LABS: ALB/GLOB Ratio 0.8 RATIO (0.9-2.4); AST(SGOT) 29 U/L (15-37); Alanine Aminotransfer ALT/SGPT 44 U/L (16-61); Albumin, Serum 3.5 g/dL (3.2-5.0); Alkaline Phosphatase 73 U/L (45-117); Anion Gap 5 (5-15); BUN 18 mg/dL (7-18); BUN/Creat Ratio 14.3 RATIO (10-20); Calcium,Total 9.5 mg/dL (8.5-10.1); Chloride 99 mmol/L (98-107); Creatinine, Serum 1.26 mg/dL (0.70-1.30); EST Glomerular Filtration Rate 59 mL/min (>60); Est Glom Filt Rate - Afr Amer 71 mL/min (>60); Globulin 4.5 g/dL (2.2-4.2); Glucose 97 mg/dL (74-106); Sodium Level 135 mmol/L (136-145)
== END | disposition home or self-care (01) ==
LOC: LABSPEC 12:52
PROVIDERS: PCP Family Medicine; Referring Provider Internal Medicine Rheumatology; Visit Provider Internal Medicine Rheumatology
DX: M06.4 Inflammatory polyarthropathy (principal); M33.90 Dermatopolymyositis, unspecified, organ involvement unspecified; K21.0 Gastro-esophageal reflux disease with esophagitis; K76.0 Fatty (change of) liver, not elsewhere classified; M51.87 Other intervertebral disc disorders, lumbosacral region; N40.0 Benign prostatic hyperplasia without lower urinary tract symptoms
CPT/HCPCS: 80053; 85025